=== PATIENT | female | born 1985 | race Caucasian/White ===

== ENCOUNTER 2021-12-20 17:05 | Emergency (ER) | payer OTHER, MEDICAID, SELFPAY ==
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
[2021-12-20 17:10] VITALS: BP 125/66; PULSE 79; RESP 18; TEMP 36.6; O2SAT 99; BMI 32.5
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
== END 2021-12-20 20:40 | disposition home or self-care (01) ==
LOC: HO.ED 18:54
PROVIDERS: Emergency Provider Emergency Medicine
DX: S16.1XXA Strain of muscle, fascia and tendon at neck level, initial encounter (principal); M54.2 Cervicalgia; V43.62XA Car passenger injured in collision with other type car in traffic accident, initial encounter; Y93.9 Activity, unspecified; Y92.410 Unspecified street and highway as the place of occurrence of the external cause; Y99.9 Unspecified external cause status; Z79.899 Other long term (current) drug therapy
CPT/HCPCS: 72040; 99283

== ENCOUNTER 2022-12-29 13:49 | Outpatient (REF) | payer OTHER, SELFPAY ==
[2022-12-29 14:52] LABS: Influenza A PCR NEGATIVE (Negative); Influenza B PCR NEGATIVE (Negative); Resp Syncy Virus RNA Qual PCR NEGATIVE (Negative); SARS COV2 PCR INHOUSE NEGATIVE (Negative)
== END 2022-12-29 13:50 | disposition home or self-care (01) ==
LOC: HO.LNP 13:49
PROVIDERS: Visit Provider Internal Medicine
DX: Z20.822 Contact with and (suspected) exposure to COVID-19 (principal); R43.9 Unspecified disturbances of smell and taste
CPT/HCPCS: 0241U

== ENCOUNTER 2024-04-01 11:25 | Outpatient (AMB) | payer OTHER, SELFPAY ==
[2024-04-01 11:30] VITALS: BP 118/84; PULSE 68; O2SAT 98; BMI 35.4
--- NOTE | 2024-04-01 11:30 | MHC.PC.OV ---
Vital Signs 04/01/24 11:30 Height 5 ft 5 in Weight 213 lb BMI 35.4 BP 118/84 Blood Pressure Location Lt brachial Position Sitting Pulse 68 Pulse Source Pulse Oximeter Pulse Oximetry (%) 98 Oxygen Delivery Method Room Air Intake Visit Reasons: Pressure in Chest tingling rt arm on/off 4 days Allergies No Known Allergies Allergy (Verified 04/01/24 11:31) adhesive Allergy (Unknown, Uncoded 12/29/22 10:23) rash Medication List - Last Reconciled 04/01/24 by Zander Richard MD albuterol sulfate 90 mcg/actuation (ProAir HFA) 1 inh inhalation QID PRN 30 days fluticasone propion-salmeterol 250-50 mcg/dose (Wixela Inhub) 1 inh inhalation BID 30 days Tobacco use date assessed: 04/01/24 Dental Screening Dental Screen Date: 04/01/24 Did you have a dental visit in the last 12 months?: Yes Did you have a dental problem in the last 6 months where you did not have access to dental care?: No Was dental information given to patient?: Patient has dentist HPI Pressure in Chest tingling rt arm on/off 4 days HPI Details Patient is 38-year-old female who was last seen 2021 Patient was evaluated for lower back pain at that visit Today she came in with chief complaint of chest discomfort which started 4 days ago Patient says that she was sitting in a car when she started having discomfort, and since then she has been having it off and on It comes on just for a 2nd and then gets better Pain is located in the middle of the chest starting from epigastric area all the way up to her throat No relationship with eating or laying down Also complaining of tingling sensation right arm starting all the way from her cervical spine down to her wrist Patient tells me that yesterday she was laying down and she had little bit of tingling around her lips as well In 2019 patient had labs and her hemoglobin was 9.0 after that she did not had any labs done Patient never returned for any physical exam see the I am ordering CBC, ferritin, B12, metabolic profile, TSH EKG done today showed normal sinus rhythm 68 beats per minute no T or ST abnormality Patient is to return in 2 days for follow-up appointment Meanwhile I am also starting her on PPI 60 minutes spent in care of this patient, including [id number] discussion with patient and her significant other EKG review, charting, coordination of care FOR[facility]LY [facility] Medical History HAWA positive Migraine Asthma Family History Father Hypertension Mother Asthma Maternal Grandfather Diabetes Paternal Grandmother CVD (cardiovascular disease) Paternal Grandfather Diabetes Social History Housing: House Patient Tobacco Use Status: Never used Tobacco e-Cigarette/Vaping Use: Never Used Current occupational status: employed Cognitive needs: No Hearing needs: No Vision needs: No Questionnaire Thrive Questionnaire Date Thrive assessed: 02/28/22 AUDIT C Alcohol Use Questionnaire (AUDIT-C) 1. How often do you have a drink containing alcohol?: Never 3. How often do you have six or more drinks on one occasion?: Never Total Score: 0 Score Reviewed/Action Taken: Yes MARLON-7 AMB Questionnaire MARLON-7 Date MARLON - 7 assessed: 02/28/22 Source: Developed by Drs. Keven Akins, Stacy Bull, Antonio Allen and colleagues, with an educational petros from [employer]. Review of Systems Const Denies chills and Denies fever(s) ENT Denies epistaxis and Denies nasal discharge Resp Denies chest congestion, Denies cough and Denies hemoptysis GI Denies diarrhea and Denies nausea Skin/Breast Denies rash Neuro Reports no additional complaints Psych Reports no additional complaints Endo Reports no additional complaints Physical exam (Primary Care) Vital Signs: Last Vital Signs Pulse 68 04/01/24 11:30 BP 118/84 04/01/24 11:30 Pulse Ox 98 04/01/24 11:30 Oxygen Delivery Method Room Air 04/01/24 11:30 BMI result Body Mass Index 35.4 Tobacco/Smoking Status: Tobacco use Status Tobacco use date assessed 04/01/24 04/01/24 11:36 Patient Tobacco Use Status Never used Tobacco 04/01/24 11:30 e-Cigarette/Vaping Use Never Used 04/01/24 11:30 Thrive Assessment: Date of Thrive Assessment Date Thrive assessed 02/28/22 04/01/24 11:30 Const General: cooperative, comfortable and no acute distress Orientation/consciousness: patient oriented x3 HENMT Head: Yes normocephalic Eyes General: appearance normal, both eyes and all related structures Neck Neck: Yes supple Chest Other: No pain with chest palpation Resp Effort & Inspection: normal respiratory effort, no cough and no stridor Cardio Rhythm: regular rhythm Heart sounds: S1 normal heart sound present and S2 normal heart sound present GI Other: no epigastric pain with pressure, abdomen exam is benign Back/Spine/Pelvis Back/spine/pelvis image: 1. 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 General: patient oriented x3, tone normal and moves all extremities Extrem Right lower extremity: no edema Left lower extremity: no edema Assessment and Plan Assessment & Plan (1) Chest pain: Code(s): R07.9 - Chest pain, unspecified Qualifiers: Chest pain type: other chest pain Qualified Code(s): R07.89 - Other chest pain (2) Iron deficiency anemia: Code(s): D50.9 - Iron deficiency anemia, unspecified Qualifiers: Iron deficiency anemia type: chronic blood loss Qualified Code(s): D50.0 - Iron deficiency anemia secondary to blood loss (chronic) (3) Paresthesia of right arm: Code(s): R20.2 - Paresthesia of skin (4) Strain of right trapezius muscle: Code(s): S46.811A - Strain of other muscles, fascia and tendons at shoulder and upper arm level, right arm, initial encounter Qualifiers: Encounter type: initial encounter Qualified Code(s): S46.811A - Strain of other muscles, fascia and tendons at shoulder and upper arm level, right arm, initial encounter (5) Paresthesia of lower lip: Code(s): R20.2 - Paresthesia of skin Plan Patient is 38-year-old female who was last seen 2021 Patient was evaluated for lower back pain at that visit Today she came in with chief complaint of chest discomfort which started 4 days ago Patient says that she was sitting in a car when she started having discomfort, and since then she has been having it off and on It comes on just for a 2nd and then gets better Pain is located in the middle of the chest starting from epigastric area all the way up to her throat No relationship with eating or laying down Also complaining of tingling sensation right arm starting all the way from her cervical spine down to her wrist Patient tells me that yesterday she was laying down and she had little bit of tingling around her lips as well In 2019 patient had labs and her hemoglobin was 9.0 after that she did not had any labs done Patient never returned for any physical exam see the I am ordering CBC, ferritin, B12, metabolic profile, TSH EKG done today showed normal sinus rhythm 68 beats per minute no T or ST abnormality Patient is to return in 2 days for follow-up appointment Meanwhile I am also starting her on PPI 60 minutes spent in care of this patient, including [id number] discussion with patient and her significant other EKG review, charting, coordination of care Orders: Orders LDL Cholesterol Direct Today D50.9 - Iron deficiency anemia, unspecified, R07.9 - Chest pain, unspecified, R20.2 - Paresthesia of skin, S46.811A - Strain of other muscles, fascia and tendons at shoulder and upper arm level, right arm, initial encounter Vitamin B12 Today D50.9 - Iron deficiency anemia, unspecified, R07.9 - Chest pain, unspecified, R20.2 - Paresthesia of skin, S46.811A - Strain of other muscles, fascia and tendons at shoulder and upper arm level, right arm, initial encounter Ferritin Today D50.9 - Iron deficiency anemia, unspecified, R07.9 - Chest pain, unspecified, R20.2 - Paresthesia of skin, S46.811A - Strain of other muscles, fascia and tendons at shoulder and upper arm level, right arm, initial encounter Complete Blood Count Auto Diff Today D50.9 - Iron deficiency anemia, unspecified, R07.9 - Chest pain, unspecified, R20.2 - Paresthesia of skin, S46.811A - Strain of other muscles, fascia and tendons at shoulder and upper arm level, right arm, initial encounter Comprehensive Met. Panel Today D50.9 - Iron deficiency anemia, unspecified, R07.9 - Chest pain, unspecified, R20.2 - Paresthesia of skin, S46.811A - Strain of other muscles, fascia and tendons at shoulder and upper arm level, right arm, initial encounter TSH reflex Free T4 Today D50.9 - Iron deficiency anemia, unspecified, R07.9 - Chest pain, unspecified, R20.2 - Paresthesia of skin, S46.811A - Strain of other muscles, fascia and tendons at shoulder and upper arm level, right arm, initial encounter Vitamin D 25-OH (D2 and D3) Today D50.9 - Iron deficiency anemia, unspecified, R07.9 - Chest pain, unspecified, R20.2 - Paresthesia of skin, S46.811A - Strain of other muscles, fascia and tendons at shoulder and upper arm level, right arm, initial encounter IRON PROFILE Today D50.9 - Iron deficiency anemia, unspecified, R07.9 - Chest pain, unspecified, R20.2 - Paresthesia of skin, S46.811A - Strain of other muscles, fascia and tendons at shoulder and upper arm level, right arm, initial encounter XR cervical spine 2V Today R20.2 - Paresthesia of skin Medications: New omeprazole 20 mg PO DAILY 30 caps 0RF Discontinued fluticasone propion-salmeterol 250-50 mcg/dose (Wixela Inhub) Discontinued Reason: No Longer Medically Relevant 1 inh inhalation BID 30 days 60 ea 2RF albuterol sulfate 90 mcg/actuation (ProAir HFA) Discontinued Reason: Patient Completed Course 1 inh inhalation QID 30 days PRN 18 grams 0RF shortness of breath or wheezing Coding Level of Care Code Est Pt Level 5 (43488) Diagnoses Other chest pain R07.89 Chest pain type: other chest pain Iron deficiency anemia due to chronic blood loss D50.0 Iron deficiency anemia type: chronic blood loss Paresthesia of right arm R20.2 Strain of right trapezius muscle, initial encounter S46.811A Encounter type: initial encounter Paresthesia of lower lip R20.2
== END 2024-04-01 12:20 | disposition home or self-care (01) ==
PROVIDERS: PCP Internal Medicine; Visit Provider Internal Medicine
DX: R07.89 Other chest pain (principal); D50.0 Iron deficiency anemia secondary to blood loss (chronic); R20.2 Paresthesia of skin; S46.811A Strain of other muscles, fascia and tendons at shoulder and upper arm level, right arm, initial encounter
CPT/HCPCS: 99215; 99417

== ENCOUNTER 2024-04-01 12:01 | Outpatient (REF) | payer OTHER, SELFPAY ==
--- NOTE | ~2024-04-01 | XR_ITS ---
EXAMINATION: XR CERVICAL SPINE CLINICAL INFORMATION: Paresthesia of skin COMPARISON: Cervical spine 12/20/2021 TECHNIQUE: 6 views of the cervical spine were obtained. FINDINGS: No fracture. Prevertebral soft tissues are within normal limits. There is straightening of the usual cervical lordosis which can be seen with muscle spasm or be due to patient positioning. There is no significant disc space narrowing. There is no subluxation. The dens is intact. The lung apices are clear. XR/XR cervical spine 2V IMPRESSION: Straightening of the usual cervical lordosis which can be seen with muscle spasm or be due to patient positioning.
[2024-04-01 13:17] LABS: MANUAL DIFF FLAG NO
[2024-04-01 13:36] LABS: Basophils Percent Auto 0.4 % (0-2); Eosinophils Absolute Auto 0.3 X10*3/uL (0.0-0.4); Eosinophils Percent Auto 4.6 % (0-4); Hemoglobin 11.4 g/dl (12.0-16.0); Imm Gran Abs Auto 0.04 X10*3/uL (0.00-0.03); Imm Gran Pct Auto 0.6 % (0.0-0.4); Lymphocytes Absolute Auto 2.2 X10*3/uL (1.2-4.9); Lymphocytes Percent Auto 31.9 % (20-40); Mean Corpuscular HGB Conc 33.5 g/dl (31.0-35.0); Mean Corpuscular Hemoglobin 30.4 pg (27.0-33.0); Mean Corpuscular Volume 90.7 fL (80.0-98.0); Monocytes Absolute Auto 0.3 X10*3/uL (0.1-1.2); Monocytes Percent Auto 4.9 % (2-11); Neutrophils Percent Auto 57.6 % (45-73); Platelet Count 295 X10*3/uL (160-400); Red Blood Count 3.75 X10*6/uL (4.20-5.50); Red Cell Distribution Width 12.2 % (11.0-16.0)
[2024-04-01 13:51] LABS: Alanine Aminotransferase 14 U/L (0-31); Albumin Level 4.1 g/dL (3.5-5.0); Alkaline Phosphatase 55 U/L (39-117); Anion Gap 13 (12-20); Aspartate Amino Transferase 14 U/L (5-31); Bilirubin Total 0.2 mg/dL (0.0-1.0); Blood Urea Nitrogen 11 mg/dL (9-16); Calcium 9.2 mg/dL (8.4-10.2); Carbon Dioxide 24 mmol/L (22-29); Chloride 106 mmol/L (96-108); Estimated Glomerular Filt Rate > 60; Glucose Random 95 mg/dL (60-115); Iron 71 mcg/dL (30-160); Percent Iron Saturation 27 % (15-50); Potassium 3.7 mmol/L (3.3-5.1); Sodium 139 mmol/L (135-145); Total Iron Binding Capacity 267 mcg/dL (228-428); Unsaturated Iron Binding 196 ug/dL
[2024-04-01 14:11] LABS: Ferritin 27 ng/mL (10-122); TSH reflex Free T4 0.97 uIU/mL (0.32-4.0)
[2024-04-01 15:18] LABS: Vitamin B12 368 pg/mL (200-900)
[2024-04-02 09:09] LABS: LDL Cholesterol Direct 156 mg/dL (<100)
[2024-04-05 16:44] LABS: Vitamin D 25-OH, D2 <4 ng/mL; Vitamin D 25-OH, D3 11 ng/mL; Vitamin D 25-OH, Total 11 ng/mL (30-100)
== END 2024-04-01 12:02 | disposition home or self-care (01) ==
LOC: HO.HMGCX 12:01
PROVIDERS: PCP Internal Medicine; Visit Provider Internal Medicine
DX: R07.9 Chest pain, unspecified (principal); D50.9 Iron deficiency anemia, unspecified; R20.2 Paresthesia of skin; S46.811A Strain of other muscles, fascia and tendons at shoulder and upper arm level, right arm, initial encounter
CPT/HCPCS: 36415; 72040; 80053; 82306; 82607; 82728; 83540; 83721; 84443; 85025

== ENCOUNTER 2024-04-04 12:58 | Outpatient (AMB) | payer OTHER, SELFPAY ==
--- NOTE | 2024-04-04 13:00 | MHC.PC.OV ---
Intake Visit Reasons: F/U ok per [id number],[phone] Allergies No Known Allergies Allergy (Verified 04/01/24 11:31) adhesive Allergy (Unknown, Uncoded 12/29/22 10:23) rash Tobacco use date assessed: 04/01/24 Dental Screening Dental Screen Date: 04/01/24 [facility] Medical History HAWA positive Migraine Asthma Family History Father Hypertension Mother Asthma Maternal Grandfather Diabetes Paternal Grandmother CVD (cardiovascular disease) Paternal Grandfather Diabetes Social History Housing: House Patient Tobacco Use Status: Never used Tobacco e-Cigarette/Vaping Use: Never Used Current occupational status: employed Cognitive needs: No Hearing needs: No Vision needs: No Questionnaire Thrive Questionnaire Date Thrive assessed: 02/28/22 MARLON-7 AMB Questionnaire MARLON-7 Date MARLON - 7 assessed: 02/28/22 Source: Developed by Drs. Keven Akins, Stacy Bull, Antonio Allen and colleagues, with an educational petros from [employer]. Physical exam (Primary Care) Tobacco/Smoking Status: Tobacco use Status Tobacco use date assessed 04/01/24 04/01/24 11:36 Patient Tobacco Use Status Never used Tobacco 04/01/24 11:30 e-Cigarette/Vaping Use Never Used 04/01/24 11:30 Thrive Assessment: Date of Thrive Assessment Date Thrive assessed 02/28/22 04/01/24 11:30 Coding
--- NOTE | 2024-04-04 13:47 | A.OFFPC_ITS ---
Intake Visit Reasons: F/U ok per CO,[phone] Allergies No Known Allergies Allergy (Verified 04/04/24 13:48) adhesive Allergy (Unknown, Uncoded 12/29/22 10:23) rash Medication List - Last Reconciled 04/04/24 by Zander Richard MD omeprazole 40 mg PO DAILY 90 days Tobacco use date assessed: 04/04/24 Dental Screening Dental Screen Date: 04/04/24 Did you have a dental visit in the last 12 months?: Yes Did you have a dental problem in the last 6 months where you did not have access to dental care?: No Was dental information given to patient?: Patient has dentist HPI F/U ok per CO,[phone] HPI Details Patient is a 38-year-old female this is a telemedicine visit to go over her labs and to see if she is improving I did sent omeprazole last time she was seen, however pharmacy never received a script She says that she has seen how diet might be contributing to her chest pains I have sent omeprazole 40 mg again patient was advised to give me a call if she does not receive the script Also was told to stop eating 4 hours before bedtime And start keeping a food diary. Labs were done recently reviewed with the patient Her anemia has improved her hemoglobin is now 11.4 I see that B12 level is slightly low I am providing supplement to bring that up As patient continued to have tingling and numbness randomly in her right arm Cervical spine x-ray was within normal limit and did not indicate any signs of disc disease We will book another appointment in 2 and half month to see how she is doing. FORMERLY [facility] Medical History HAWA positive Migraine Asthma Family History Father Hypertension Mother Asthma Maternal Grandfather Diabetes Paternal Grandmother CVD (cardiovascular disease) Paternal Grandfather Diabetes Social History Housing: House Patient Tobacco Use Status: Never used Tobacco e-Cigarette/Vaping Use: Never Used Current occupational status: employed Cognitive needs: No Hearing needs: No Vision needs: No Questionnaire Thrive Questionnaire Date Thrive assessed: 02/28/22 AUDIT C Alcohol Use Questionnaire (AUDIT-C) 1. How often do you have a drink containing alcohol?: Never 3. How often do you have six or more drinks on one occasion?: Never Total Score: 0 Score Reviewed/Action Taken: Yes MARLON-7 AMB Questionnaire MARLON-7 Date MARLON - 7 assessed: 02/28/22 Source: Developed by Drs. Keven Akins, Stacy Bull, Antonio Allen and colleagues, with an educational petros from [email or web address]. Review of Systems Const Denies chills and Denies fever(s) ENT Denies epistaxis and Denies nasal discharge Resp Denies chest congestion, Denies cough and Denies hemoptysis GI Denies diarrhea and Denies nausea Skin/Breast Denies rash Neuro Reports no additional complaints Psych Reports no additional complaints Endo Reports no additional complaints Physical exam (Primary Care) Tobacco/Smoking Status: Tobacco use Status Tobacco use date assessed 04/04/24 04/04/24 13:49 Patient Tobacco Use Status Never used Tobacco 04/04/24 13:49 e-Cigarette/Vaping Use Never Used 04/04/24 13:49 Thrive Assessment: Date of Thrive Assessment Date Thrive assessed 02/28/22 04/04/24 13:49 Telehealth Telehealth Telehealth Platform: [employer] Location of provider rendering services: practice address Location of patient: address on file Patient Identification confirmed using: Name, : Yes Telehealth method: video (Attempted) Patient verbally consented to treatment: Yes Patient verbally consented to billing insurance company: Yes Patient informed of any privacy concerns related to visit: Yes Minutes spent on Phone/Video with Pt.: 13 Results Reviewed Results Reviewed: Laboratory Tests 04/01/24 12:05 LDL Cholesterol Direct 156 H Vitamin B12 368 Assessment and Plan Assessment & Plan (1) Iron deficiency anemia: Code(s): D50.9 - Iron deficiency anemia, unspecified Qualifiers: Iron deficiency anemia type: chronic blood loss Qualified Code(s): D50.0 - Iron deficiency anemia secondary to blood loss (chronic) (2) Acid reflux: Code(s): K21.9 - Gastro-esophageal reflux disease without esophagitis Qualifiers: Esophagitis presence: without esophagitis Qualified Code(s): K21.9 - Gastro-esophageal reflux disease without esophagitis (3) Paresthesia of right arm: Code(s): R20.2 - Paresthesia of skin (4) B12 deficiency: Code(s): E53.8 - Deficiency of other specified B group vitamins Plan Patient is a 38-year-old female this is a telemedicine visit to go over her labs and to see if she is improving I did sent omeprazole last time she was seen, however pharmacy never received a script She says that she has seen how diet might be contributing to her chest pains I have sent omeprazole 40 mg again patient was advised to give me a call if she does not receive the script Also was told to stop eating 4 hours before bedtime And start keeping a food diary. Labs were done recently reviewed with the patient Her anemia has improved her hemoglobin is now 11.4 I see that B12 level is slightly low I am providing supplement to bring that up As patient continued to have tingling and numbness randomly in her right arm Cervical spine x-ray was within normal limit and did not indicate any signs of disc disease We will book another appointment in 2 and half month to see how she is doing. Medications: New cyanocobalamin (vitamin B-12) 1,000 mcg PO DAILY 90 days 90 tabs 0RF Changed From omeprazole 20 mg PO DAILY 30 caps 0RF To omeprazole 40 mg PO DAILY 90 days 90 caps 0RF Coding Level of Care Code Tele Est Pt Level 3 (15859) Diagnoses Iron deficiency anemia due to chronic blood loss D50.0 Iron deficiency anemia type: chronic blood loss Gastroesophageal reflux disease without esophagitis K21.9 Esophagitis presence: without esophagitis Paresthesia of right arm R20.2 B12 deficiency E53.8
== END 2024-04-04 14:30 | disposition home or self-care (01) ==
LOC: HO.HMGC 12:59
PROVIDERS: PCP Internal Medicine; Visit Provider Internal Medicine
DX: D50.0 Iron deficiency anemia secondary to blood loss (chronic) (principal); K21.9 Gastro-esophageal reflux disease without esophagitis; R20.2 Paresthesia of skin; E53.8 Deficiency of other specified B group vitamins
CPT/HCPCS: 99213

== ENCOUNTER 2024-12-01 13:09 | Outpatient (AMB) | payer OTHER, SELFPAY ==
--- NOTE | 2024-12-01 14:38 | MHC.OFFWIV ---
Intake Vital Signs 12/01/24 14:39 Weight 215 lb BP 120/80 Blood Pressure Location Lt brachial Position Sitting Pulse 75 Pulse Source Pulse Oximeter Temp 98.0 F Temp Source Oral Pulse Oximetry (%) 97 Oxygen Delivery Method Room Air Intake Visit Reasons: EP diarreah, vomiting, body chills, pain Intake Note: Patient here for diarrhea,vomiting, body chills, body ache and nausea that has been present for a few days. Patient Tobacco Use Status: Never used Tobacco Allergies No Known Allergies Allergy (Verified 12/01/24 15:17) adhesive Allergy (Unknown, Uncoded 12/01/24 15:17) rash Medication List - Last Reconciled 12/01/24 by Rika Ryan PA-C cyanocobalamin (vitamin B-12) 1,000 mcg PO DAILY 90 days cyclobenzaprine 10 mg PO TID PRN omeprazole 40 mg PO DAILY 90 days ondansetron 4 mg PO Q8H PRN Do you need a note to return to daycare/school/sports/work: No HPI HPI Comments History of Present Illness Details The patient is a 39-year-old female presenting with gastrointestinal symptoms. She reports experiencing diarrhea and vomiting throughout the previous day. That evening, she developed severe chills and body aches. On the day of the visit, she continues to have significant body aches, particularly in her arms, and experiences nausea but has not vomited again. She noted chest discomfort after vomiting, consistent with muscle strain from emesis. She mentioned having significant diarrhea multiple times the previous day, sweating profusely, but she did not measure her body temperature. Denies sick contacts. 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 She denies any recent travel history, respiratory symptoms, or sore throat. She experienced what she describes as possible period cramps a day or two before the onset of symptoms, although not expected to menstruate soon. She is concerned about the possibility of a viral infection, such as norovirus. 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 - Current Nutrition: Due to gastrointestinal symptoms, restricted intake of liquids and soda; has avoided eating fearful of exacerbating symptoms. - Family: Resides with her son and expresses concern about contagion, noting her son also experienced diarrhea. [facility] Medical History HAWA positive Migraine Asthma Family History Father Hypertension Mother Asthma Maternal Grandfather Diabetes Paternal Grandmother CVD (cardiovascular disease) Paternal Grandfather Diabetes Social History Housing: House Patient Tobacco Use Status: Never used Tobacco e-Cigarette/Vaping Use: Never Used Current occupational status: employed Cognitive needs: No Hearing needs: No Vision needs: No Review of Systems Const Details: - Respiratory: Denies cough. - Gastrointestinal: Reports nausea, significant diarrhea previously, and no bowel movements since the last episode of diarrhea. - Musculoskeletal: Reports severe body aches, particularly in arms and upper body. Denies lower body pain. - General: Reports chills and muscle pains. - Neurological: Denies headache or dizziness. All systems reviewed & are unremarkable except as noted in HPI and below Physical Exam Vital Signs: Last Vital Signs Temp 98.0 F 12/01/24 14:39 Pulse 75 12/01/24 14:39 BP 120/80 12/01/24 14:39 Pulse Ox 97 12/01/24 14:39 Oxygen Delivery Method Room Air 12/01/24 14:39 Const Other: Appearance: Alert. Oriented X3. No acute distress. Head: Normal external exam. Normocephalic. Atraumatic. Eyes: Pupils are equal, round, and reactive to light. Extraocular movements intact. Conjunctiva and sclera normal. Eyelids normal. Ears: External auditory canal normal. Tympanic membranes normal. Throat: Pharynx normal. Uvula midline. Moist mucous membranes. Neck: Normal inspection. Neck supple. Full range of motion. No adenopathy. Thyroid Normal. No meningeal signs. No neck mass noted. Cardiovascular: Normal heart rate and rhythm. Respiratory: No respiratory distress. Painless inspiration. Chest nontender. No accessory muscle usage noted or decreased air movement noted. Abdomen: Soft and nontender. Bowel sounds normal in all 4 quadrants. No distention noted. No organomegaly noted. No visible injury noted. Back: No costovertebral angle tenderness. Full range of motion noted. Skin: Skin warm and dry. Normal skin color. Normal skin turgor. No rashes/lesions/lacerations noted. Extremities:Extremities exhibit normal range of motion. Extremities nontender. Neuro: Oriented X 3. No motor deficit. No sensory deficit. Reflexes normal. Assessment & Plan Assessment & Plan (1) Nausea vomiting and diarrhea: Code(s): R11.2 - Nausea with vomiting, unspecified; R19.7 - Diarrhea, unspecified Plan: - Administer antiemetic medication for symptomatic relief of nausea. - Prescribe muscle relaxant, Flexeril Cyclobenzaprine), to manage muscle pain. - Advise rehydration with appropriate fluids such as Pedialyte. - Recommend dietary adjustments, following a BRAT diet Bananas, Rice, Applesauce, [place]) for gastrointestinal recovery. Patient was informed and verbally consented to the use of an ambient scribe for clinic note documentation during this visit. Plan During the consultation, I discussed the likelihood of a viral gastroenteritis, possibly norovirus, given the patient's symptom profile and her son's related symptoms. I explained the high contagion level of norovirus and emphasized the importance of strict hygiene measures to prevent spread within her household. Management options discussed included symptomatic relief with antiemetics and muscle relaxants, both with specific instructions for use. I advised against the use of hand sanitizers, explaining their ineffectiveness against this virus, and instead recommended using soap and water for hand hygiene. We discussed home care strategies, including dietary changes to ease gastrointestinal recovery and the importance of hydration. Explanation of the potential time course of symptoms was provided, as well as reassurance regarding the self-limiting nature of the virus. I provided a work note as a precautionary measure if her symptoms persisted. Medications: New ondansetron 4 mg PO Q8H PRN 20 tabs 0RF nausea and vomiting cyclobenzaprine 10 mg PO TID PRN 20 tabs 0RF muscle spasm Patient Instructions: - Take prescribed antiemetic medication as directed for nausea. - Use muscle relaxant at night to alleviate muscle pain. - Maintain hydration with clear fluids like Pedialyte or water. - Follow a BRAT diet: Bananas, Rice, Applesauce, and [place]. - Follow strict hygiene practices, including frequent handwashing with soap and water. - Clean frequently touched surfaces thoroughly, especially in shared bathrooms. - Avoid using alcohol-based hand sanitizers, as they are ineffective for norovirus. - Monitor for any worsening of symptoms or new symptoms and seek medical attention if needed. - Follow up if symptoms do not improve within 48-72 hours or for any new concerns. Coding Level of Care Code Est Pt Level 3 (47176) Diagnoses Nausea vomiting and diarrhea R11.2; R19.7
[2024-12-01 14:39] VITALS: BP 120/80; PULSE 75; TEMP 36.7; O2SAT 97
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
--- OUTSIDE RECORDS SUMMARY | 2024-12-01 15:15 | XMS_ITS | Encounter Summary ---
Author Name [facility] [place] [facility] [place] Address [address] [place] [address] Care Team Providers Care Operations Dispatcher Name Role Phone CHIDI DESIR Primary Care [...] UMA PRESCRIPT ION GEHA~ Nov 26, 2014 [id number] DENIZ TOBAR PATIENT CAREMARK PRESCRIPT ION GEHA Sep 13, 2014 [id number] [phone] RAMÓN OROPEZADENIZ PATIENT CAREMARK ([id number]) PRESCRIPT ION GEHA RX Nov 26, 2014 [id number] [phone] DUNGLACY OROPEZADENIZ PATIENT GEHA [facility] MENTAL HEALTH GEHA/ ASA 2021Nov 26, 2021 [id number] [phone] RAMÓN OROPEZADENIZ 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 FEDERAL DENTAL INSURANCE GEHA Nov 26, 2017 [id number] DENIZ TOBAR PATIENT GEHA-[facility] PREFERRED PROVIDER ORGANIZAT ION (PPO) GEHA- [facility] STAND ANDREW Nov 26, 2023 [id number] DENIZ TOBAR PATIENT [facility] PREFERRED PROVIDER ORGANIZAT ION (PPO) GEHA Nov 26, 2014 [id number] DENIZ TOBAR PATIENT [facility] PREFERRED PROVIDER ORGANIZAT ION (PPO) GEHA Sep 13, 2014 [id number] ALTH [id number] [phone] DENIZ TOBAR PATIENT GEHA/[facility] PREFERRED PROVIDER ORGANIZAT ION (PPO) STAND ANDREW OPTIO N Nov 26, 2020 [id number] DENIZ TOBAR PATIENT Selected Encounter This section includes the information on record at [place] for the Encounter. Date/Time Encounter Type Encounter Description Reason Provider Source Mar 24, 2024 11:08 AM HC PRO PHONE CALL 5-10 MIN TELEPHONE PRIMARY CARE ICD-10-CM R19.7 Diarrhea, unspecified VANIA MAIN IHMargarita Encounter Template Text not used by CT Assessments - Encounter Diagnoses This section includes the primary and secondary diagnoses documented for the Encounter. Date/Time Primary/Secondary Diagnosis Diagnosis Name Provider Source Mar 24, 2024 11:08 AM PRIMARY Diarrhea, unspecified VANIA MAIN CBDAE Plan of Treatment: Future Appointments (+ 6 months) and Future Tests (+/- 45 days) The Plan of Treatment section includes future care activities for the patient from all [place] treatmentfacilities. This section includes future appointments and future orders which are active, pending or scheduled. Future Appointments This section includes appointments that were scheduled to occur 6 months from the date of the Encounter, up to a maximum of 20 appointments. The data comes from all [place] treatment facilities. Appointment Date/Time Appointment Type Appointme nt Facility Name April 01, 2024 02:30 PM AMBULATORY - PSYCHIATRY CL CURT[facility] April 02, 2024 11:00 AM AMBULATORY - NONE CLEENRRIQUE Lopez [facility] April 02, 2024 11:34 AM AMBULATORY - NONE [facility] Jul 03, 2024 10:30 AM AMBULATORY - NONE [facility] Active, Pending, and Scheduled Orders This section includes a listing of several types of active, pending, and scheduled orders, including clinic medications orders, diagnostic test orders, procedure orders and consult orders; where the start date of the order is 45 days before the date of the Encounter or 45 days after the date of theEncounter. The data comes from all [place] treatment facilities. Test Date/Time Test Type Test Details Facility Name April 02, 2024 12:00 AM Laboratory - Chemi stry Order C DIFF TOXOGENIC PCR STOOL FECES SP ONCE [facility] April 02, 2024 12:00 AM Laboratory - Chemi stry Order ENTERIC PANEL STOOL FECES SP ONCE [facility] April 02, 2024 12:00 AM Laboratory - Chemi stry Order INR BLUE TOP PL PLASMA SP [facility] Lab Results: +/- 30 days of the [...] Range Comment April 02, 2024 11:58 AM [facility] TESTOSTERONE,FREE DIRECT Specimen Type: SERUM No comment entered. Ordering Provider: CHIDI DESIR Report Released Date/Time: April 02, 2024 11:23 AM Reporting Lab: [address] [address] Performing Lab: [facility] [address] [facility] [address] TESTOSTERONE,FR EE DIRECT 31.9 pg/mL H 6.8-21.5 April 02, 2024 11:58 AM [facility] HEPATITIS B CORE AB TOTAL Specimen Type: SERUM No comment entered. Ordering Provider: CHIDI DESIR Report Released Date/Time: April 02, 2024 11:25 AM Reporting Lab: [address] [address] Performing Lab: [address] [address] HEPATITIS B CORE AB TOTAL Nonreactive Nonreactive April 02, 2024 11:58 AM [facility] HEPATITIS A AB TOTAL Specimen Type: SERUM No comment entered. Ordering Provider: CHIDI DESIR Report Released Date/Time: April 02, 2024 11:25 AM Reporting Lab: [address] [address] Performing Lab: [address] [address] HEPATITIS A AB TOTAL REACTIVE Nonreactive April 02, 2024 11:58 AM [facility] HEPATITIS B SURFACE AG Specimen Type: SERUM No comment entered. Ordering Provider: CHIDI DESIR Report Released Date/Time: April 02, 2024 11:25 AM Reporting Lab: [address] [address] Performing Lab: [place] [phone] HEPATITIS B SURFACE AG Nonreactive Nonreactive April 02, 2024 11:58 AM [facility] HEPATITIS B SURF AB Specimen Type: SERUM No comment entered. Ordering Provider: CHIDI DESIR Report Released Date/Time: April 02, 2024 11:25 AM Reporting Lab: [address] [address] Performing Lab: [address] [address] HEPATITIS B SURF AB <3.1 m[IU]/mL 0-9.99 April 02, 2024 11:58 AM [facility] HEPATITIS C ANTIBODY Specimen Type: SERUM No comment entered. Ordering Provider: CHIDI DESIR Report Released Date/Time: April 02, 2024 11:25 AM Reporting Lab: [address] [address] Performing Lab: [address] [address] HEPATITIS C ANTIBODY Nonreactive Nonreactive April 02, 2024 11:58 AM [facility] HEMOGLOBIN A1C Specimen Type: BLOOD Comment: Values [...] April 02, 2024 11:23 AM Reporting Lab: [address] [address] Performing Lab: [address] [address] HEMOGLOBIN A1C 4.6 3.6-5.7 April 02, 2024 11:58 AM [facility] LIPID PROFILE Specimen Type: PLASMA Comment: CREATININE eGFR was calculated using the CKD-EPI 2020 equation. TRIGLYCERIDE REF RANGE: NORMAL <150 mg/dL BORDERLINE HIGH: 150-199 TRIGLYCERIDE mg/dL HIGH: 200-499 mg/dL VERY HIGH: >=500 mg/dL Ordering Provider: CHIDI DESIR Report Released Date/Time: April 02, 2024 11:23 AM Reporting Lab: [address] [address] Performing Lab: [address] [address] CHOLESTEROL 255 mg/dL H 135-200 LDL CHOLESTEROL 220.0 mg/dL H 0-110 HDL CHOLESTEROL <20 mg/dL L 40-60 TRIGLYCERIDE 188 mg/dL H 0-149 April 02, 2024 11:58 AM [facility] TSH Specimen Type: PLASMA Comment: CREATININE eGFR was calculated using the CKD-EPI 2020 equation. Ordering Provider: CHIDI DESIR Report Released Date/Time: April 02, 2024 11:23 AM Reporting Lab: [address] [address] Performing Lab: [address] [address] TSH 1.437 u[IU]/mL 0.55-4.78 April 02, 2024 11:58 AM [facility] FREE T4 Specimen Type: PLASMA Comment: CREATININE eGFR was calculated using the CKD-EPI 2020 equation. Ordering Provider: CHIDI DESIR Report Released Date/Time: April 02, 2024 11:23 AM Reporting Lab: [address] [address] Performing Lab: [address] [address] FREE T4 1.79 ng/dL H 0.89-1.76 April 02, 2024 11:58 AM [facility] TESTOSTERONE Specimen Type: SERUM No comment entered. Ordering Provider: CHIDI DESIR Report Released Date/Time: April 02, 2024 11:23 AM Reporting Lab: [address] [address] Performing Lab: [address] [address] TESTOSTERONE 486.80 ng/dL April 02, 2024 11:58 AM [facility] URINALYSIS Specimen Type: URINE No comment entered. Ordering Provider: CHIDI DESIR Report Released Date/Time: April 02, 2024 11:23 AM Reporting Lab: [address] [address] Performing Lab: [place] [phone] SPECIFIC GRAVITY 1.025 H 1.016-1.022 URINE GLUCOSE [...] COLOR Yellow April 02, 2024 11:58 AM [facility] COMPREHENSIVE METABOLIC PANEL Specimen Type: PLASMA Comment: CREATININE eGFR was calculated using the CKD-EPI 2020 equation. TRIGLYCERIDE REF RANGE: NORMAL <150 mg/dL BORDERLINE HIGH: 150-199 TRIGLYCERIDE mg/dL HIGH: 200-499 mg/dL VERY HIGH: >=500 mg/dL Ordering Provider: CHIDI DESIR Report Released Date/Time: April 02, 2024 11:23 AM Reporting Lab: [address] [address] Performing Lab: [address] [address] ALBUMIN 4.2 g/dL 3.2-4.8 ALKALINE PHOSPHATASE 46 [...] 108 mL/min April 02, 2024 11:58 AM [facility] CBC Specimen Type: BLOOD No comment entered. Ordering Provider: CHIDI DESIR Report Released Date/Time: April 02, 2024 11:23 AM Reporting Lab: [address] [address] Performing Lab: [address] [address] WBC COUNT 5.4 10*3/uL 3.6-11.0 RBC COUNT [...] and tobacco- related health factors from the [place] facility where the Encounter took place. Current Smoking Status This section includes the most current smoking, or tobacco-related health factor, from the [place] facility where the Encounter took place. Date/Time Current Smoking Status Comment Suleiman zapata Dec 21, 2022 10:00 AM VA-TOBACCO NEVER USED [facility] Tobacco Use History This section includes a history of the smoking, or tobacco-related health factors, that were collected on or before the date of the Encounter. The data comes from the [place] facility where the Encounter took place. Date/Time [...] Encounter. Date/Time Encounter Note(s) Provider Source Mar 24, 2024 11:08 AM CARE MANAGEMENT NO TE: LOCAL TITLE: [facility] CARE MANAGEMENT NOTE STANDARD TITLE: CARE MANAGEMENT NOTE DATE OF NOTE: MAR 24, 2024@11:08 ENTRY DATE: MAR 24, 2024@11:09:02 AUTHOR: VANIA MAIN COSIGNER: URGENCY: STATUS: COMPLETED Telephone appointment NURSING CASE MANAGEMENT NOTE: Disease: stomach issues NARRATIVE: Vet contacted clinic request f/u with PCP. Vet states he has been having stomach issues that is chronic and ongoing for years. Vet states he has diarrhea about 15 times a day . Denies blood in stool, n/v, syncope, lightheadedness, dizziness, weakness. Denies mucus in stool or very odorous stool. Denies abdominal pain/cramps. Vet states it's tense like it's all in knots. I'm not sure if it's stress related . CURRENT REGIMEN: Vet states he has tried imodium in the past but it doesn't help . COMPLIANCE: n/a PLAN OF CARE: Vet requesting f/u with PCP. RTC placed. Vet declined need for ER f/u, states this is ongoing and not urgent. Vet advised to continue to trial imodium for diarrhea. Drink plenty of fluid to prevent dehydration. Call 911 or go to the nearest ER if vet experiences sob, cp, syncope, abdominal pain, large amount of blood in stool. Understanding verbalized and in agreement with plan of care. Declined offer to transfer call. Requesting for MSA to contact him later. MSA notified. LENGTH OF VISIT: /duane/ VANIA Alanis REGISTERED NURSE Signed: 03/24/2024 11:18 VANIA AMIN [facility]
--- OUTSIDE RECORDS SUMMARY | 2024-12-01 15:15 | XMS_ITS | Encounter Summary ---
Author Name [facility] [place] [facility] [place] Address [address] [place] [address] Care Team Providers Care Sports Complex Attendant Name Role Phone CHIDI DESIR Primary Care [...] Dia's Name Patient's Relationship to Policy Dia CAREMARK PRESCRIPT ION GEHA~ Nov 26, 2014 [id number] RAMÓN JOHNNADENIZ PATIENT CAREMARK PRESCRIPT ION GEHA Sep 13, 2014 [id number] [phone] RAMÓN OROPEZADENIZ PATIENT CAREMARK ([id number]) PRESCRIPT ION GEHA RX Nov 26, 2014 [id number] [phone] RAMÓN OROPEZADENIZ PATIENT GEHA [facility] MENTAL HEALTH GEHA/ ASA 2021Nov 26, 2021 [id number] [phone] RAMÓN OROPEZADENIZ 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 FEDERAL DENTAL INSURANCE GEHA Nov 26, 2017 AA [id number] DENIZ TOBAR PATIENT GEHA-[facility] PREFERRED PROVIDER ORGANIZAT ION (PPO) GEHA- [facility] STAND ANDREW Nov 26, 2023 [id number] DENIZ TOBAR PATIENT [facility] PREFERRED PROVIDER ORGANIZAT ION (PPO) GEHA Nov 26, 2014 [id number] [phone] DENIZ TOBAR PATIENT [facility] PREFERRED PROVIDER ORGANIZAT ION (PPO) GEHA Sep 13, 2014 [id number] ALTH [id number] [phone] DENIZ TOBAR PATIENT GEHA/[facility] PREFERRED PROVIDER ORGANIZAT ION (PPO) STAND ANDREW OPTIO N Nov 26, 2020 [id number] DENIZ TOBAR PATIENT Selected Encounter This section includes the information on record at [place] for the Encounter. Date/Time Encounter Type Encounter Description Reason Pro vider Source Mar 12, 2024 01:35 PM Outpatient Encounter TELEPHONE PRIMARY CARE IHE Encounter Template Text not used by [place] Plan of Treatment: Future Appointments (+ 6 months) and Future Tests (+/- 45 days) The Plan of Treatment section includes future care activities for the patient [facility] [place] [facility] This section includes future appointments and future orders which are active, pending or scheduled. Future Appointments This section includes appointments that were scheduled to occur 6 months from the date of the Encounter, up to a maximum of 20 appointments. The data comes from all [facility]. Appointment Date/Time Appointment Type Appointme nt Facility Name April 01, 2024 02:30 PM AMBULATORY - PSYCHIATRY CL CURTIS [facility] April 02, 2024 11:00 AM AMBULATORY - NONE CLEENRRIQUE Lopez [facility] April 02, 2024 11:34 AM AMBULATORY - NONE [facility] Jul 03, 2024 10:30 AM AMBULATORY - NONE [facility] Active, Pending, and Scheduled Orders This section includes a listing of several types of active, pending, and scheduled orders, including clinic medications orders, diagnostic test orders, procedure orders and consult orders; where the start date of the order is 45 days before the date of the Encounter or 45 days after the date of theEncounter. The [facility] comes from all [facility]. Test Date/Time Test Type Test Details Facility Name April 02, 2024 12:00 AM Laboratory - Chemi stry Order ENTERIC PANEL STOOL FECES SP ONCE [facility] April 02, 2024 12:00 AM Laboratory - Chemi stry Order C DIFF TOXOGENIC PCR STOOL FECES SP ONCE [facility] April 02, 2024 12:00 AM Laboratory - Chemi stry Order INR BLUE TOP PL PLASMA SP [facility] Lab Results: +/- 30 days of the encounter This section includes the Chemistry and Hematology Lab Results on record with [place] for the patient. Radiology Reports and Pathology Reports are provided separately, in subsequent sections. Lab Results This section contains the Chemistry/Hematology Results that were resulted 30 days before or 30 daysafter the date of the Encounter. Date/Time Source Result Type Result - Unit Interpretation Reference Range Comment April 02, 2024 11:58 AM [facility] TESTOSTERONE,FREE DIRECT Specimen Type: SERUM No comment entered. Ordering Provider: CHIDI DESIR Report Released Date/Time: April 02, 2024 11:23 AM Reporting Lab: [address] [address] Performing Lab: [address] [address] TESTOSTERONE,FR EE DIRECT 31.9 pg/mL H 6.8-21.5 April 02, 2024 11:58 AM [facility] HEPATITIS A AB TOTAL Specimen Type: SERUM No comment entered. Ordering Provider: CHIDI DESIR Report Released Date/Time: April 02, 2024 11:25 AM Reporting Lab: [address] [address] Performing Lab: [address] [address] HEPATITIS A AB TOTAL REACTIVE Nonreactive April 02, 2024 11:58 AM [facility] HEPATITIS B CORE AB TOTAL Specimen Type: SERUM No comment entered. Ordering Provider: CHIDI DESIR Report Released Date/Time: April 02, 2024 11:25 AM Reporting Lab: [address] [address] Performing Lab: [address] [address] HEPATITIS B CORE AB TOTAL Nonreactive Nonreactive April 02, 2024 11:58 AM [facility] HEPATITIS B SURFACE AG Specimen Type: SERUM No comment entered. Ordering Provider: CHIDI DESIR Report Released Date/Time: April 02, 2024 11:25 AM Reporting Lab: [address] [address] Performing Lab: [address] [address] HEPATITIS B SURFACE AG Nonreactive Nonreactive April 02, 2024 11:58 AM [facility] HEPATITIS B SURF AB Specimen Type: SERUM No comment entered. Ordering Provider: CHIDI DESIR Report Released Date/Time: April 02, 2024 11:25 AM Reporting Lab: [address] [address] Performing Lab: [address] [address] HEPATITIS B SURF AB <3.1 m[IU]/mL 0-9.99 April 02, 2024 11:58 AM [facility] HEPATITIS C ANTIBODY Specimen Type: SERUM No comment entered. Ordering Provider: CHIDI DESIR Report Released Date/Time: April 02, 2024 11:25 AM Reporting Lab: [address] [address] Performing Lab: [address] [address] HEPATITIS C ANTIBODY Nonreactive Nonreactive April 02, 2024 11:58 AM [facility] LIPID PROFILE Specimen Type: PLASMA Comment: CREATININE eGFR was calculated using the CKD-EPI 2020 equation. TRIGLYCERIDE REF RANGE: NORMAL <150 mg/dL BORDERLINE HIGH: 150-199 TRIGLYCERIDE mg/dL HIGH: 200-499 mg/dL VERY HIGH: >=500 mg/dL Ordering Provider: CHIDI DESIR Report Released Date/Time: April 02, 2024 11:23 AM Reporting Lab: [address] [address] Performing Lab: [address] [address] CHOLESTEROL 255 mg/dL H 135-200 LDL CHOLESTEROL 220.0 mg/dL H 0-110 HDL CHOLESTEROL <20 mg/dL L 40-60 TRIGLYCERIDE 188 mg/dL H 0-149 April 02, 2024 11:58 AM [facility] HEMOGLOBIN A1C Specimen Type: BLOOD Comment: Values [...] April 02, 2024 11:23 AM Reporting Lab: [address] [address] Performing Lab: [place] [phone] HEMOGLOBIN A1C 4.6 3.6-5.7 April 02, 2024 11:58 AM [facility] TSH Specimen Type: PLASMA Comment: CREATININE eGFR was calculated using the CKD-EPI 2020 equation. Ordering Provider: CHIDI DESIR Report Released Date/Time: April 02, 2024 11:23 AM Reporting Lab: [place] [phone] Performing Lab: [place] [phone] TSH 1.437 u[IU]/mL 0.55-4.78 April 02, 2024 11:58 AM [facility] FREE T4 Specimen Type: PLASMA Comment: CREATININE eGFR was calculated using the CKD-EPI 2020 equation. Ordering Provider: CHIDI DESIR Report Released Date/Time: April 02, 2024 11:23 AM Reporting Lab: [address] [address] Performing Lab: [address] [address] FREE T4 1.79 ng/dL H 0.89-1.76 April 02, 2024 11:58 AM [facility] TESTOSTERONE Specimen Type: SERUM No comment entered. Ordering Provider: CHIDI DESIR Report Released Date/Time: April 02, 2024 11:23 AM Reporting Lab: [address] [address] Performing Lab: [place] [phone] TESTOSTERONE 486.80 ng/dL April 02, 2024 11:58 AM [facility] URINALYSIS Specimen Type: URINE No comment entered. Ordering Provider: CHIDI DESIR Report Released Date/Time: April 02, 2024 11:23 AM Reporting Lab: [address] [address] Performing Lab: [address] [address] SPECIFIC GRAVITY 1.025 H 1.016-1.022 URINE GLUCOSE [...] COLOR Yellow April 02, 2024 11:58 AM [facility] COMPREHENSIVE METABOLIC PANEL Specimen Type: PLASMA Comment: CREATININE eGFR was calculated using the CKD-EPI 2020 equation. TRIGLYCERIDE REF RANGE: NORMAL <150 mg/dL BORDERLINE HIGH: 150-199 TRIGLYCERIDE mg/dL HIGH: 200-499 mg/dL VERY HIGH: >=500 mg/dL Ordering Provider: CHIDI DESIR Report Released Date/Time: April 02, 2024 11:23 AM Reporting Lab: [address] [address] Performing Lab: [address] [address] ALBUMIN 4.2 g/dL 3.2-4.8 ALKALINE PHOSPHATASE 46 [...] 108 mL/min April 02, 2024 11:58 AM [facility] CBC Specimen Type: BLOOD No comment entered. Ordering Provider: CHIDI DESIR Report Released Date/Time: April 02, 2024 11:23 AM Reporting Lab: [facility] [id number] [place] [address] Performing Lab: [facility] [id number] [place] [address] WBC COUNT 5.4 10*3/uL 3.6-11.0 RBC COUNT [...] 0.2 10*3/uL 0.0-0.3 MPV 8.4 fL 7.4-11.4 Encounter Notes: All associated encounter notes This section contains the clinical notes associated to the Encounter. Date/Time Encounter Note(s) Provider Source Mar 12, 2024 01:35 PM PACT NOTE: LOCAL TITLE: PACT NURSE TELEPHONE NOTE (T) STANDARD TITLE: PACT NOTE DATE OF NOTE: MAR 12, 2024@13:35 ENTRY DATE: MAR 12, 2024@13:36:02 AUTHOR: SALBADOR GANT EXP COSIGNER: URGENCY: STATUS: COMPLETED phoned to the clinic and left requesting pcp appt. for stomach issues. RN called back. Phone rang and went straight to twice. Left hippa appropriate with clinic number and extension for return call. Will address medical concerns when calls back. /duane/ SALBADOR GANT REGISTERED NURSE Signed: 03/12/2024 13:38 SALBADOR GANT [facility]
--- OUTSIDE RECORDS SUMMARY | 2024-12-01 15:16 | XMS_ITS | Encounter Summary ---
Author Name [facility] [facility] [place] Address [address] [place] [address] Care Team Providers Care Traffic Court Referee Name Role Phone CHIDI DESIR Primary Care [...] CAREMARK PRESCRIPT ION GEHA~ Nov 26, 2014 [id number] [phone] DENIZ TOBAR PATIENT CAREMARK PRESCRIPT ION GEHA Sep 13, 2014 [id number] [phone] RAMÓN OROPEZADENIZ PATIENT CAREMARK ([id number]) PRESCRIPT ION GEHA RX Nov 26, 2014 [id number] [phone] DUNGLACY OROPEZADENIZ PATIENT GE[facility] GEHA/ [facility] 2021Nov 26, 2021 [id number] [phone] RAMÓN OROPEZADENIZ PATIENT 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 [employer]UR[employer] GEHA Nov 26, 2017 AA [id number] DENIZ TOBAR PATIENT GEHA-[facility] PREFERRED PROVIDER ORGANIZAT ION (PPO) GEHA- [facility] STAND ANDREW Nov 26, 2023 [id number] [phone] DENIZ TOBAR PATIENT [facility] PREFERRED PROVIDER ORGANIZAT ION (PPO) GEHA Nov 26, 2014 [id number] DENIZ TOBAR PATIENT [facility] PREFERRED PROVIDER ORGANIZAT ION (PPO) GEHA Sep 13, 2014 [id number] [id number] [phone] DENIZ TOBAR PATIENT GEHA/[facility] PREFERRED PROVIDER ORGANIZAT ION (PPO) STAND ANDREW OPTIO N Nov 26, 2020 [id number] DENIZ TOBAR PATIENT Selected Encounter This section includes the information on record at [place] for the Encounter. Date/Time Encounter Type Encounter Description Reason Pro vider Source April 02, 2024 09:03 AM Outpatient Encounter ADMIN PAT ACTIVTIES (MASNONCT) I[facility] Encounter Template Text not used by [place] Plan of Treatment: Future Appointments (+ 6 months) and Future Tests (+/- 45 days) The Plan of Treatment section includes future care activities for the patient from all [place] treatmentfacilities. This section includes future appointments and future orders which are active, pending or scheduled. Future Appointments This section includes appointments that were scheduled to occur 6 months from the date of the Encounter, up to a maximum of 20 appointments. The data comes from all [place] treatment facilities. Appointment Date/Time Appointment Type Appointme nt Facility Name Jul 03, 2024 10:30 AM [facility]ATORY - [facility] Active, Pending, and Scheduled Orders This section includes a listing of several types of active, pending, and scheduled orders, including clinic medications orders, diagnostic test orders, procedure orders and consult orders; where the start date of the order is 45 days before the date of the Encounter or 45 days after the date of theEncounter. The data comes from all [place] treatment [facility]. Test Date/Time Test Type Test Details Facility Name April 02, 2024 12:00 AM Laboratory - Chemi stry Order C DIFF TOXOGENIC PCR STOOL FECES SP ONCE [facility] April 02, 2024 12:00 AM Laboratory - Chemi stry Order ENTERIC PANEL STOOL FECES SP ONCE [facility] April 02, 2024 12:00 AM Laboratory - Chemi stry Order INR BLUE TOP PL PLASMA SP [facility] Lab Results: +/- 30 days of the [...] Range Comment April 02, 2024 11:[address] [facility] TESTOSTERONE,FREE DIRECT Specimen Type: SERUM No comment entered. Ordering Provider: CHIDI DESIR Report Released Date/Time: April 02, 2024 11:23 AM Reporting Lab: [address] [address] Performing Lab: [address] [address] TESTOSTERONE,FR EE DIRECT 31.9 pg/mL H 6.8-21.5 April 02, 2024 11:[address] [facility] HEPATITIS B CORE AB TOTAL Specimen Type: SERUM No comment entered. Ordering Provider: CHIDI DESIR Report Released Date/Time: April 02, 2024 11:25 AM Reporting Lab: [address] [address] Performing Lab: [address] [address] HEPATITIS B CORE AB TOTAL Nonreactive Nonreactive April 02, 2024 11:[address] [facility] HEPATITIS A AB TOTAL Specimen Type: SERUM No comment entered. Ordering Provider: CHIDI DESIR Report Released Date/Time: April 02, 2024 11:25 AM Reporting Lab: [address] [address] Performing Lab: [address] [address] HEPATITIS A AB TOTAL REACTIVE Nonreactive April 02, 2024 11:[address] [facility] HEPATITIS B SURFACE AG Specimen Type: SERUM No comment entered. Ordering Provider: CHIDI DESIR Report Released Date/Time: April 02, 2024 11:25 AM Reporting Lab: [address] [address] Performing Lab: [address] [address] HEPATITIS B SURFACE AG Nonreactive Nonreactive April 02, 2024 11:[address] [facility] HEPATITIS B SURF AB Specimen Type: SERUM No comment entered. Ordering Provider: CHIDI DESIR Report Released Date/Time: April 02, 2024 11:25 AM Reporting Lab: [address] [address] Performing Lab: [address] [address] HEPATITIS B SURF AB <3.1 m[IU]/mL 0-9.99 April 02, 2024 11:[address] [facility] HEPATITIS C ANTIBODY Specimen Type: SERUM No comment entered. Ordering Provider: CHIDI DESIR Report Released Date/Time: April 02, 2024 11:25 AM Reporting Lab: [address] [address] Performing Lab: [address] [address] HEPATITIS C ANTIBODY Nonreactive Nonreactive April 02, 2024 11:[address] [facility] LIPID PROFILE Specimen Type: PLASMA Comment: CREATININE eGFR was calculated using the CKD-EPI 2020 equation. TRIGLYCERIDE REF RANGE: NORMAL <150 mg/dL BORDERLINE HIGH: 150-199 TRIGLYCERIDE mg/dL HIGH: 200-499 mg/dL VERY HIGH: >=500 mg/dL Ordering Provider: CHIDI DESIR Report Released Date/Time: April 02, 2024 11:23 AM Reporting Lab: [address] [address] Performing Lab: [address] [address] CHOLESTEROL 255 mg/dL H 135-200 LDL CHOLESTEROL 220.0 mg/dL H 0-110 HDL CHOLESTEROL <20 mg/dL L 40-60 TRIGLYCERIDE 188 mg/dL H 0-149 April 02, 2024 11:[address] [facility] HEMOGLOBIN A1C Specimen Type: BLOOD Comment: Values [...] April 02, 2024 11:23 AM Reporting Lab: [address] [address] Performing Lab: [address] [address] HEMOGLOBIN A1C 4.6 3.6-5.7 April 02, 2024 11:[address] [facility] TSH Specimen Type: PLASMA Comment: CREATININE eGFR was calculated using the CKD-EPI 2020 equation. Ordering Provider: CHIDI DESIR Report Released Date/Time: April 02, 2024 11:23 AM Reporting Lab: [address] [address] Performing Lab: [place] [id number] TSH 1.437 u[IU]/mL 0.55-4.78 April 02, 2024 11:[address] [facility] FREE T4 Specimen Type: PLASMA Comment: CREATININE eGFR was calculated using the CKD-EPI 2020 equation. Ordering Provider: CHIDI DESIR Report Released Date/Time: April 02, 2024 11:23 AM Reporting Lab: [address] [address] Performing Lab: [place] [id number] FREE T4 1.79 ng/dL H 0.89-1.76 April 02, 2024 11:[address] [facility] TESTOSTERONE Specimen Type: SERUM No comment entered. Ordering Provider: CHIDI DESIR Report Released Date/Time: April 02, 2024 11:23 AM Reporting Lab: [address] [address] Performing Lab: [address] [address] TESTOSTERONE 486.80 ng/dL April 02, 2024 11:[address] [facility] URINALYSIS Specimen Type: URINE No comment entered. Ordering Provider: CHIDI DESIR Report Released Date/Time: April 02, 2024 11:23 AM Reporting Lab: [address] [address] Performing Lab: [place] [id number] SPECIFIC GRAVITY 1.025 H 1.016-1.022 URINE GLUCOSE [...] COLOR Yellow April 02, 2024 11:[address] [facility] COMPREHENSIVE METABOLIC PANEL Specimen Type: PLASMA Comment: CREATININE eGFR was calculated using the CKD-EPI 2020 equation. TRIGLYCERIDE REF RANGE: NORMAL <150 mg/dL BORDERLINE HIGH: 150-199 TRIGLYCERIDE mg/dL HIGH: 200-499 mg/dL VERY HIGH: >=500 mg/dL Ordering Provider: CHIDI DESIR Report Released Date/Time: April 02, 2024 11:23 AM Reporting Lab: [address] [address] Performing Lab: [address] [address] ALBUMIN 4.2 g/dL 3.2-4.8 ALKALINE PHOSPHATASE 46 [...] 108 mL/min April 02, 2024 11:[address] [facility] CBC Specimen Type: BLOOD No comment entered. Ordering Provider: CHIDI DESIR Report Released Date/Time: April 02, 2024 11:23 AM Reporting Lab: [place] [address] [facility] [address] Performing Lab: [facility] [address] [facility] [address] WBC COUNT 5.4 10*3/uL 3.6-11.0 RBC COUNT [...] 0.2 10*3/uL 0.0-0.3 MPV 8.4 fL 7.4-11.4 Vital Signs: All taken on the encounter date This section contains inpatient and outpatient Vital Signs collected on the date of the Encounter. Date/Time Temperature Pulse Blood Pressure Respiratory Rate SP02 Pain Height Weight Body Mass Index Source April 02, 2024 11:04 AM 137/85 [facility] April 02, 2024 10:57 AM 97.8 89 18 95 5 74 212.7 27 [facility] Encounter Notes: All associated encounter notes This section contains the clinical notes associated to the Encounter. Date/Time Encounter Note(s) Provider Source April 02, 2024 09:03 AM LETTERS: LOCAL TITLE: SCHEDULING CONTACT ATTEMPT LETTER STANDARD TITLE: LETTERS DATE OF NOTE: APRIL 02, 2024@09:03 ENTRY DATE: APRIL 02, 2024@09:03:50 AUTHOR: WANDA PLASCENCIA EXP COSIGNER: URGENCY: STATUS: COMPLETED [facility] [address] [place] [address] March DENIZ FERREIRA [address] [place], [place] [address] Dear , [facility] has received a request to schedule you for a Consult appointment. We attempted to contact you via telephone on March and we were unable to reach you. This is our 2nd attempt to reach you. It is important that you contact us by March to schedule your appointment. Please call us at [phone] at extension [phone] between the hours of 8 AM to 430 PM EST, Sunday through Sunday to schedule your appointment. If you already made an appointment, please disregard this notification. We look forward to your call and thank you for your service. Vinod Roldanchirstine [address] [address] WANDA PLASCENCIA [facility]
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
--- OUTSIDE RECORDS SUMMARY | 2024-12-01 15:16 | XMS_ITS ---
Author Name [facility] [place] [facility] [place] Address [address] [place] [address] Care Team Providers Care Brass Pickler Name Role Phone CHIDI DESIR Primary Care [...] CAREMARK PRESCRIPT ION GEHA~ Nov 26, 2014 [id number] [phone] DENIZ TOBAR PATIENT CAREMARK PRESCRIPT ION GEHA Sep 13, 2014 [id number] [phone] RAMÓN OROPEZADENIZ PATIENT CAREMARK ([id number]) PRESCRIPT ION GEHA RX Nov 26, 2014 [id number] [phone] DUNGLACY OROPEZADENIZ PATIENT GEHA [facility] MENTAL HEALTH GEHA/ ASA 2021Nov 26, 2021 [id number] [phone] RAMÓN OROPEZADENIZ PATIENT 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 FEDERAL DENTAL INSURANCE GEHA Nov 26, 2017 AA [id number] DENIZ TOBAR PATIENT GEHA-[facility] PREFERRED PROVIDER ORGANIZAT ION (PPO) GEHA- [facility] STAND ANDREW Nov 26, 2023 [id number] DENIZ TOBAR PATIENT [facility] PREFERRED PROVIDER ORGANIZAT ION (PPO) GEHA Nov 26, 2014 [id number] DENIZ TOBAR PATIENT [facility] PREFERRED PROVIDER ORGANIZAT ION (PPO) GEHA Sep 13, 2014 [id number] [id number] DENIZ TOBAR PATIENT GEHA/[facility] PREFERRED PROVIDER ORGANIZAT ION (PPO) STAND ANDREW OPTIO N Nov 26, 2020 [id number] DENIZ TOBAR PATIENT Selected Encounter This section includes the information on record at [place] for the Encounter. Date/Time Encounter Type Encounter Description Reason Pro vider Source May 30, 2024 10:08 AM Outpatient Encounter ADMIN PAT ACTIVTIES (MASNONCT) IHE Encounter Template Text not used by [place] Plan of Treatment: Future Appointments (+ 6 months) and Future Tests (+/- 45 days) The Plan of Treatment section includes future care activities for the patient from all [place] treatmentfacilities. This section includes future appointments and future orders which are active, pending or scheduled. Future Appointments This section includes appointments that were scheduled to occur 6 months from the date of the Encounter, up to a maximum of 20 appointments. The data comes from all [place] treatment facilities. Appointment Date/Time Appointment Type Appointme nt Facility Name Jul 03, 2024 10:30 AM AMBULATORY - [facility] Active, Pending, and Scheduled Orders This section includes a listing of several types of active, pending, and scheduled orders, including clinic medications orders, diagnostic test orders, procedure orders and consult orders; where the start date of the order is 45 days before the date of the Encounter or 45 days after the date of theEncounter. The data comes from all [place] treatment [facility]. Test Date/Time Test Type Test Details Facility Name Jul 03, 2024 12:00 AM Laboratory - Chemi stry Order ENTERIC PANEL STOOL FECES SP ONCE [facility] Jul 03, 2024 12:00 AM Laboratory - Chemi stry Order C DIFF TOXOGENIC PCR STOOL FECES SP ONCE [facility] Encounter Notes: All associated encounter notes This section contains the clinical notes associated to the Encounter. Date/Time Encounter Note(s) Provider Source May 30, 2024 10:09 AM LETTERS: LOCAL TITLE: SCHEDULING CONTACT ATTEMPT LETTER STANDARD TITLE: LETTERS DATE OF NOTE: MAY 30, 2024@10:09 ENTRY DATE: MAY 30, 2024@10:09:08 AUTHOR: MICHELLE GALVAN EXP COSIGNER: URGENCY: STATUS: COMPLETED [facility] [address] [place] [address] May DENIZ FERREIRA [address] [place], [place] [address] Dear [place] has received a request to reschedule you for a Cancel by Patient appointment. We attempted to contact you via telephone on May and we were unable to reach you. This is our 2nd attempt to reach you. It is important that you contact us by May to schedule your appointment. Please call us at [phone] at extension [phone] between the hours of 0800 AM to 1630 PM EST, Sunday through Sunday to schedule your appointment. If you already made an appointment, please disregard this notification. We look forward to your call and thank you for your service. Vinod Gregg [address] [address] MICHELLE GALVAN [facility]
--- OUTSIDE RECORDS SUMMARY | 2024-12-01 15:16 | XMS_ITS | Encounter Summary ---
Author Name [facility] [place] [facility] [place] Address [address] [place] [address] Care Team Providers Care City Supervisor Name Role Phone CHIDI DESIR Primary Care [...] CAREMARK PRESCRIPT ION GEHA~ Nov 26, 2014 [id number] [phone] DENIZ TOBAR PATIENT CAREMARK PRESCRIPT ION GEHA Sep 13, 2014 [id number] [phone] RAMÓN OROPEZADENIZ PATIENT CAREMARK ([id number]) PRESCRIPT ION GEHA RX Nov 26, 2014 [id number] [phone] DUNGLACY OROPEZADENIZ PATIENT [facility] GEHA/ [facility] 2021Nov 26, 2021 [id number] [phone] RAMÓN OROPEZADENIZ PATIENT 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 [employer]URANCE GEHA Nov 26, 2017 [id number] DENIZ TOBAR PATIENT GEHA-[facility] PREFERRED PROVIDER ORGANIZAT ION (PPO) GEHA- [facility] STAND ANDREW Nov 26, 2023 [id number] DENIZ TOBAR PATIENT [facility] PREFERRED PROVIDER ORGANIZAT ION (PPO) GEHA Nov 26, 2014 [id number] DENIZ TOBAR PATIENT [facility] PREFERRED PROVIDER ORGANIZAT ION (PPO) GEHA Sep 13, 2014 [id number] ALTH [id number] [phone] DENIZ TOBAR PATIENT GEHA/[facility] PREFERRED PROVIDER ORGANIZAT ION (PPO) STAND ANDREW OPTIO N Nov 26, 2020 [id number] DENIZ TOBAR PATIENT Selected Encounter This section includes the information on record at [place] for the Encounter. Date/Time Encounter Type Encounter Description Reason Pro vider Source April 15, 2024 03:38 PM Outpatient Encounter ADMIN PAT ACTIVTIES (MASNONCT) IHE Encounter Template Text not used by CT Plan of Treatment: Future Appointments (+ 6 [...] Jul 03, 2024 10:30 AM AM[facility]ATORY - [facility] Active, Pending, and Scheduled Orders This section includes a listing of several types of active, pending, and scheduled orders, including clinic medications orders, diagnostic test orders, procedure orders and consult orders; where the start date of the order is 45 days before the date of the Encounter or 45 days after the date of theEncounter. The data comes from all [place] treatment [facility]. Test Date/Time Test Type Test Details Facility Name April 02, 2024 12:00 AM Laboratory - Chemi stry Order C DIFF TOXOGENIC PCR STOOL FECES SP ONCE [facility] April 02, 2024 12:00 AM Laboratory - Chemi stry Order ENTERIC PANEL STOOL FECES SP ONCE [facility] April 02, 2024 12:00 AM Laboratory - Chemi stry Order INR BLUE TOP PL PLASMA SP [facility] Lab Results: +/- 30 days [...] Range Comment April 02, 2024 11:58 AM [facility] TESTOSTERONE,FREE DIRECT Specimen Type: SERUM No comment entered. Ordering Provider: CHIDI DESIR Report Released Date/Time: April 02, 2024 11:23 AM Reporting Lab: [address] [address] Performing Lab: [address] [address] TESTOSTERONE,FR EE DIRECT 31.9 pg/mL H 6.8-21.5 April 02, 2024 11:58 AM [facility] HEPATITIS B CORE AB TOTAL Specimen Type: SERUM No comment entered. Ordering Provider: CHIDI DESIR Report Released Date/Time: April 02, 2024 11:25 AM Reporting Lab: [address] [address] Performing Lab: [address] [address] HEPATITIS B CORE AB TOTAL Nonreactive Nonreactive April 02, 2024 11:58 AM [facility] HEPATITIS A AB TOTAL Specimen Type: SERUM No comment entered. Ordering Provider: CHIDI DESIR Report Released Date/Time: April 02, 2024 11:25 AM Reporting Lab: [address] [address] Performing Lab: [address] [address] HEPATITIS A AB TOTAL REACTIVE Nonreactive April 02, 2024 11:58 AM [facility] HEPATITIS B SURFACE AG Specimen Type: SERUM No comment entered. Ordering Provider: CHIDI DESIR Report Released Date/Time: April 02, 2024 11:25 AM Reporting Lab: [address] [address] Performing Lab: [address] [address] HEPATITIS B SURFACE AG Nonreactive Nonreactive April 02, 2024 11:58 AM [facility] HEPATITIS B SURF AB Specimen Type: SERUM No comment entered. Ordering Provider: CHIDI DESIR Report Released Date/Time: April 02, 2024 11:25 AM Reporting Lab: [address] [address] Performing Lab: [address] [address] HEPATITIS B SURF AB <3.1 m[IU]/mL 0-9.99 April 02, 2024 11:58 AM [facility] HEPATITIS C ANTIBODY Specimen Type: SERUM No comment entered. Ordering Provider: CHIDI DESIR Report Released Date/Time: April 02, 2024 11:25 AM Reporting Lab: [address] [address] Performing Lab: [address] [address] HEPATITIS C ANTIBODY Nonreactive Nonreactive April 02, 2024 11:58 AM [facility] LIPID PROFILE Specimen Type: PLASMA Comment: CREATININE eGFR was calculated using the CKD-EPI 2020 equation. TRIGLYCERIDE REF RANGE: NORMAL <150 mg/dL BORDERLINE HIGH: 150-199 TRIGLYCERIDE mg/dL HIGH: 200-499 mg/dL VERY HIGH: >=500 mg/dL Ordering Provider: CHIDI DESIR Report Released Date/Time: April 02, 2024 11:23 AM Reporting Lab: [address] [address] Performing Lab: [address] [address] CHOLESTEROL 255 mg/dL H 135-200 LDL CHOLESTEROL 220.0 mg/dL H 0-110 HDL CHOLESTEROL <20 mg/dL L 40-60 TRIGLYCERIDE 188 mg/dL H 0-149 April 02, 2024 11:58 AM [facility] HEMOGLOBIN A1C Specimen Type: BLOOD [...] 02, 2024 11:23 AM Reporting Lab: [address] [address] Performing Lab: [address] [address] HEMOGLOBIN A1C 4.6 3.6-5.7 April 02, 2024 11:58 AM [facility] TSH Specimen Type: PLASMA Comment: CREATININE eGFR was calculated using the CKD-EPI 2020 equation. Ordering Provider: CHIDI DESIR Report Released Date/Time: April 02, 2024 11:23 AM Reporting Lab: [address] [address] Performing Lab: [place] [phone] TSH 1.437 u[IU]/mL 0.55-4.78 April 02, 2024 11:58 AM [facility] FREE T4 Specimen Type: PLASMA Comment: CREATININE eGFR was calculated using the CKD-EPI 2020 equation. Ordering Provider: CHIDI DESIR Report Released Date/Time: April 02, 2024 11:23 AM Reporting Lab: [address] [address] Performing Lab: [place] [phone] FREE T4 1.79 ng/dL H 0.89-1.76 April 02, 2024 11:58 AM [facility] TESTOSTERONE Specimen Type: SERUM No comment entered. Ordering Provider: CHIDI DESIR Report Released Date/Time: April 02, 2024 11:23 AM Reporting Lab: [address] [address] Performing Lab: [address] [address] TESTOSTERONE 486.80 ng/dL April 02, 2024 11:58 AM [facility] URINALYSIS Specimen Type: URINE No comment entered. Ordering Provider: CHIDI DESIR Report Released Date/Time: April 02, 2024 11:23 AM Reporting Lab: [address] [address] Performing Lab: [place] [phone] SPECIFIC GRAVITY 1.025 H 1.016-1.022 URINE GLUCOSE [...] COLOR Yellow April 02, 2024 11:58 AM [facility] COMPREHENSIVE METABOLIC PANEL Specimen Type: PLASMA Comment: CREATININE eGFR was calculated using the CKD-EPI 2020 equation. TRIGLYCERIDE REF RANGE: NORMAL <150 mg/dL BORDERLINE HIGH: 150-199 TRIGLYCERIDE mg/dL HIGH: 200-499 mg/dL VERY HIGH: >=500 mg/dL Ordering Provider: CHIDI DESIR Report Released Date/Time: April 02, 2024 11:23 AM Reporting Lab: [address] [address] Performing Lab: [address] [address] ALBUMIN 4.2 g/dL 3.2-4.8 ALKALINE PHOSPHATASE 46 [...] 108 mL/min April 02, 2024 11:58 AM [facility] CBC Specimen Type: BLOOD No comment entered. Ordering Provider: CHIDI DESIR Report Released Date/Time: April 02, 2024 11:23 AM Reporting Lab: [place] [address] [facility] [address] Performing Lab: [facility] [address] [facility] [address] WBC COUNT 5.4 10*3/uL 3.6-11.0 RBC COUNT [...] Encounter. Date/Time Encounter Note(s) Provider Source April 15, 2024 03:38 PM LETTERS: LOCAL TITLE: SCHEDULING CONTACT ATTEMPT LETTER STANDARD TITLE: LETTERS DATE OF NOTE: APRIL 15, 2024@15:38 ENTRY DATE: APRIL 15, 2024@15:38:59 AUTHOR: WANDA PLASCENCIA EXP COSIGNER: URGENCY: STATUS: COMPLETED [facility] [address] [place] [address] March DENIZ FERREIRA [address] [place], [place] [address] Dear , [facility] a request to reschedule you for a Cancel by Patient appointment. We attempted to contact you via telephone on March and we were unable to reach you. This is our 2nd attempt to reach you. It is important that you contact us by Apr to schedule your appointment. Please call us at [phone] at extension [phone] between the hours of 8 AM to 430 PM EST, Sunday through Sunday to schedule your appointment. If you already made an appointment, please disregard this notification. We look forward to your call and thank you for your service. Vinod Gregg [place] [id number] WANDA PLASCENCIA [facility]
--- OUTSIDE RECORDS SUMMARY | 2024-12-01 15:16 | XMS_ITS | Encounter Summary ---
Author Name [facility] [place] [facility] [place] Address [address] [place] [address] Care Team Providers Care Client Care Manager Name Role Phone CHIDI DESIR Primary Care [...] CAREMARK PRESCRIPT ION GEHA~ Nov 26, 2014 [id number] RAMÓN JOHNNADENIZ PATIENT CAREMARK PRESCRIPT ION GEHA Sep 13, 2014 [id number] [phone] RAMÓN OROPEZADENIZ PATIENT CAREMARK ([id number]) PRESCRIPT ION GEHA RX Nov 26, 2014 [id number] [phone] RAMÓN OROPEZADENIZ PATIENT GEHA [facility] MENTAL HE[facility] GEHA/ ASA 2021Nov 26, 2021 [id number] [id number] RAMÓN OROPEZADENIZ 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 [employer] DENTAL INSURANCE GEHA Nov 26, 2017 [id number] DENIZ TOBAR PATIENT GEHA-[facility] PREFERRED PROVIDER ORGANIZAT ION (PPO) GEHA- [facility]W Nov 26, 2023 [id number] DENIZ TOBAR PATIENT [facility] PREFERRED PROVIDER ORGANIZAT ION (PPO) GEHA Nov 26, 2014 [id number] DENIZ TOBAR PATIENT [facility] PREFERRED PROVIDER ORGANIZAT ION (PPO) GEHA Sep 13, 2014 [id number] ALTH [id number] [phone] DENIZ TOBAR PATIENT GEHA/[facility] PREFERRED PROVIDER ORGANIZAT ION (PPO) STAND AND[facility] OPTIO N Nov 26, 2020 [id number] DENIZ TOBAR PATIENT Selected Encounter This section includes the information on record at [place] for the Encounter. Date/Time Encounter Type Encounter Description Reason Pro vider Source 2024 09:45 AM Outpatient Encounter PRIMARY CARE/MEDICINE IHE Encounter Template Text not used by [place] Plan of Treatment: Future Appointments (+ 6 months) and Future Tests (+/- 45 days) The Plan of Treatment section includes future care activities for the patient from all [place] treatmentfacilities. This section includes future appointments and [...] Jul 03, 2024 10:30 AM AM[facility]ULATORY - [facility] Active, Pending, and Scheduled Orders This section includes a listing of several types of active, pending, and scheduled orders, including clinic medications orders, diagnostic test orders, procedure orders and consult orders; where the start date of the order is 45 days before the date of the Encounter or 45 days after the date of theEncounter. The data comes from all [facility]. Test Date/Time Test Type Test Details Facility Name April 02, 2024 12:00 AM Laboratory - Chemi stry Order C DIFF TOXOGENIC PCR STOOL FECES SP ONCE [facility] April 02, 2024 12:00 AM Laboratory - Chemi stry Order ENTERIC PANEL STOOL FECES SP ONCE [facility] April 02, 2024 12:00 AM Laboratory - Chemi stry Order INR BLUE TOP PL PLASMA SP [facility] Lab Results: +/- 30 days of the [...] April 02, 2024 11:58 AM [facility] TESTOSTERONE,FREE DIRECT Specimen Type: SERUM No comment entered. Ordering Provider: CHIDI DESIR Report Released Date/Time: April 02, 2024 11:23 AM Reporting Lab: [address] [address] Performing Lab: [address] [address] TESTOSTERONE,FR EE DIRECT 31.9 pg/mL H 6.8-21.5 April 02, 2024 11:58 AM [facility] HEPATITIS B CORE AB TOTAL Specimen Type: SERUM No comment entered. Ordering Provider: CHIDI DESIR Report Released Date/Time: April 02, 2024 11:25 AM Reporting Lab: [address] [address] Performing Lab: [address] [address] HEPATITIS B CORE AB TOTAL Nonreactive Nonreactive April 02, 2024 11:58 AM [facility] HEPATITIS A AB TOTAL Specimen Type: SERUM No comment entered. Ordering Provider: CHIDI DESIR Report Released Date/Time: April 02, 2024 11:25 AM Reporting Lab: [address] [address] Performing Lab: [address] [address] HEPATITIS A AB TOTAL REACTIVE Nonreactive April 02, 2024 11:58 AM [facility] HEPATITIS B SURFACE AG Specimen Type: SERUM No comment entered. Ordering Provider: CHIDI DESIR Report Released Date/Time: April 02, 2024 11:25 AM Reporting Lab: [address] [address] Performing Lab: [address] [address] HEPATITIS B SURFACE AG Nonreactive Nonreactive April 02, 2024 11:58 AM [facility] HEPATITIS B SURF AB Specimen Type: SERUM No comment entered. Ordering Provider: CHIDI DESIR Report Released Date/Time: April 02, 2024 11:25 AM Reporting Lab: [address] [address] Performing Lab: [place] [phone] HEPATITIS B SURF AB <3.1 m[IU]/mL 0-9.99 April 02, 2024 11:58 AM [facility] HEPATITIS C ANTIBODY Specimen Type: SERUM No comment entered. Ordering Provider: CHIDI DESIR Report Released Date/Time: April 02, 2024 11:25 AM Reporting Lab: [address] [address] Performing Lab: [address] [address] HEPATITIS C ANTIBODY Nonreactive Nonreactive April 02, 2024 11:58 AM [facility] HEMOGLOBIN A1C Specimen Type: BLOOD Comment: Values [...] April 02, 2024 11:23 AM Reporting Lab: [address] [address] Performing Lab: [address] [address] HEMOGLOBIN A1C 4.6 3.6-5.7 April 02, 2024 11:58 AM [facility] LIPID PROFILE Specimen Type: PLASMA Comment: CREATININE eGFR was calculated using the CKD-EPI 2020 equation. TRIGLYCERIDE REF RANGE: NORMAL <150 mg/dL BORDERLINE HIGH: 150-199 TRIGLYCERIDE mg/dL HIGH: 200-499 mg/dL VERY HIGH: >=500 mg/dL Ordering Provider: CHIDI DESIR Report Released Date/Time: April 02, 2024 11:23 AM Reporting Lab: [address] [address] Performing Lab: [address] [address] CHOLESTEROL 255 mg/dL H 135-200 LDL CHOLESTEROL 220.0 mg/dL H 0-110 HDL CHOLESTEROL <20 mg/dL L 40-60 TRIGLYCERIDE 188 mg/dL H 0-149 April 02, 2024 11:58 AM [facility] TSH Specimen Type: PLASMA Comment: CREATININE eGFR was calculated using the CKD-EPI 2020 equation. Ordering Provider: CHIDI DESIR Report Released Date/Time: April 02, 2024 11:23 AM Reporting Lab: [address] [address] Performing Lab: [place] [phone] TSH 1.437 u[IU]/mL 0.55-4.78 April 02, 2024 11:58 AM [facility] FREE T4 Specimen Type: PLASMA Comment: CREATININE eGFR was calculated using the CKD-EPI 2020 equation. Ordering Provider: CHIDI DESIR Report Released Date/Time: April 02, 2024 11:23 AM Reporting Lab: [address] [address] Performing Lab: [address] [address] FREE T4 1.79 ng/dL H 0.89-1.76 April 02, 2024 11:58 AM [facility] TESTOSTERONE Specimen Type: SERUM No comment entered. Ordering Provider: CHIDI DESIR Report Released Date/Time: April 02, 2024 11:23 AM Reporting Lab: [address] [address] Performing Lab: [address] [address] TESTOSTERONE 486.80 ng/dL April 02, 2024 11:58 AM [facility] URINALYSIS Specimen Type: URINE No comment entered. Ordering Provider: CHIDI DESIR Report Released Date/Time: April 02, 2024 11:23 AM Reporting Lab: [address] [address] Performing Lab: [address] [address] SPECIFIC GRAVITY 1.025 H 1.016-1.022 URINE GLUCOSE [...] April 02, 2024 11:58 AM [facility] COMPREHENSIVE METABOLIC PANEL Specimen Type: PLASMA Comment: CREATININE eGFR was calculated using the CKD-EPI 2020 equation. TRIGLYCERIDE REF RANGE: NORMAL <150 mg/dL BORDERLINE HIGH: 150-199 TRIGLYCERIDE mg/dL HIGH: 200-499 mg/dL VERY HIGH: >=500 mg/dL Ordering Provider: CHIDI DESIR Report Released Date/Time: April 02, 2024 11:23 AM Reporting Lab: [address] [address] Performing Lab: [address] [address] ALBUMIN 4.2 g/dL 3.2-4.8 ALKALINE PHOSPHATASE 46 [...] April 02, 2024 11:58 AM [facility] CBC Specimen Type: BLOOD No comment entered. Ordering Provider: CHIDI DESIR Report Released Date/Time: April 02, 2024 11:23 AM Reporting Lab: [address] [address] Performing Lab: [facility] [address] [facility] [address] WBC COUNT 5.4 10*3/uL 3.6-11.0 RBC COUNT [...] the Encounter. Date/Time Encounter Note(s) Provider Source 2024 09:45 AM NONVA REPORT: LOCAL TITLE: NON-VA MEDICAL RECORDS STANDARD TITLE: NONVA REPORT DATE OF NOTE: 2024@09:45 ENTRY DATE: 2024@09:46 AUTHOR: VANIA MAIN EXP COSIGNER: URGENCY: STATUS: COMPLETED non [place] medical records received from outside facility reviewed by pcp. records to be scanned into vista. /duane/ VANIA Alanis REGISTERED NURSE Signed: 2024 09:46 VANIA MAIN [facility]
--- OUTSIDE RECORDS SUMMARY | 2024-12-01 15:16 | XMS_ITS | Encounter Summary ---
Author Name [facility] [place] [facility] [place] Address [address] [place] [address] Care Team Providers Care Anatomic Pathologist Name Role Phone CHIDI DESIR Primary Care [...] CAREMARK PRESCRIPT ION GEHA~ Nov 26, 2014 [id number] [phone] DENIZ TOBAR PATIENT CAREMARK PRESCRIPT ION GEHA Sep 13, 2014 [id number] [phone] RAMÓN OROPEZADENIZ PATIENT CAREMARK ([id number]) PRESCRIPT ION GEHA RX Nov 26, 2014 [id number] [phone] DUNGLACY OROPEZADENIZ PATIENT GEHA [facility]IOR[facility] MENTAL HEALTH GEHA/ ASA 2021Nov 26, 2021 [id number] [id number] RAMÓN OROPEZADENIZ PATIENT 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 [employer] DENTAL INSURANCE GEHA Nov 26, 2017 AA [id number] DENIZ TOBAR PATIENT GEHA-[facility] PREFERRED PROVIDER ORGANIZAT ION (PPO) GEHA- [facility] STAND ANDREW Nov 26, 2023 [id number] DENIZ TOBAR PATIENT [facility] PREFERRED PROVIDER ORGANIZAT ION (PPO) GEHA Nov 26, 2014 [id number] DENIZ TOBAR PATIENT [facility] PREFERRED PROVIDER ORGANIZAT ION (PPO) GEHA Sep 13, 2014 [id number] ALTH [id number] [phone] DENIZ TOBAR PATIENT GEHA/[facility] PREFERRED PROVIDER ORGANIZAT ION (PPO) STAND ANDREW OPTIO N Nov 26, 2020 [id number] DENIZ TOBAR PATIENT Selected Encounter This section includes the information on record at [place] for the Encounter. Date/Time Encounter Type Encounter Description Reason Pro vider Source April 03, 2024 10:48 AM Outpatient Encounter ADMIN PAT ACTIVTIES (MASNONCT) [...] Jul 03, 2024 10:30 AM AMBULATORY - [facility] Active, Pending, and Scheduled Orders This section includes a listing of several types of active, pending, and scheduled orders, including clinic medications orders, diagnostic test orders, procedure orders and consult orders; where the start date of the order is 45 days before the date of the Encounter or 45 days after the date of theEncounter. The data comes from all [place] treatment [facility]. Test Date/Time Test Type Test Details Facility Name April 02, 2024 12:00 AM Laboratory - Chemi stry Order C DIFF TOXOGENIC PCR STOOL FECES SP ONCE [facility] April 02, 2024 12:00 AM Laboratory - Chemi stry Order ENTERIC PANEL STOOL FECES SP ONCE [facility] April 02, 2024 12:00 AM Laboratory - Chemi stry Order INR BLUE TOP PL PLASMA SP [facility] Lab Results: +/- 30 days [...] Range Comment April 02, 2024 11:58 AM [facility] TESTOSTERONE,FREE DIRECT Specimen Type: SERUM No comment entered. Ordering Provider: CHIDI DESIR Report Released Date/Time: April 02, 2024 11:23 AM Reporting Lab: [address] [address] Performing Lab: [address] [address] TESTOSTERONE,FR EE DIRECT 31.9 pg/mL H 6.8-21.5 April 02, 2024 11:58 AM [facility] HEPATITIS A AB TOTAL Specimen Type: SERUM No comment entered. Ordering Provider: CHIDI DESIR Report Released Date/Time: April 02, 2024 11:25 AM Reporting Lab: [address] [address] Performing Lab: [address] [address] HEPATITIS A AB TOTAL REACTIVE Nonreactive April 02, 2024 11:58 AM [facility] HEPATITIS B CORE AB TOTAL Specimen Type: SERUM No comment entered. Ordering Provider: CHIDI DESIR Report Released Date/Time: April 02, 2024 11:25 AM Reporting Lab: [address] [address] Performing Lab: [address] [address] HEPATITIS B CORE AB TOTAL Nonreactive Nonreactive April 02, 2024 11:58 AM [facility] HEPATITIS B SURFACE AG Specimen Type: SERUM No comment entered. Ordering Provider: CHIDI DESIR Report Released Date/Time: April 02, 2024 11:25 AM Reporting Lab: [address] [address] Performing Lab: [address] [address] HEPATITIS B SURFACE AG Nonreactive Nonreactive April 02, 2024 11:58 AM [facility] HEPATITIS C ANTIBODY Specimen Type: SERUM No comment entered. Ordering Provider: CHIDI DESIR Report Released Date/Time: April 02, 2024 11:25 AM Reporting Lab: [address] [address] Performing Lab: [address] [address] HEPATITIS C ANTIBODY Nonreactive Nonreactive April 02, 2024 11:58 AM [facility] HEPATITIS B SURF AB Specimen Type: SERUM No comment entered. Ordering Provider: CHIDI DEISR Report Released Date/Time: April 02, 2024 11:25 AM Reporting Lab: [address] [address] Performing Lab: [address] [address] HEPATITIS B SURF AB <3.1 m[IU]/mL 0-9.99 April 02, 2024 11:58 AM [facility] LIPID PROFILE Specimen Type: PLASMA Comment: CREATININE eGFR was calculated using the CKD-EPI 2020 equation. TRIGLYCERIDE REF RANGE: NORMAL <150 mg/dL BORDERLINE HIGH: 150-199 TRIGLYCERIDE mg/dL HIGH: 200-499 mg/dL VERY HIGH: >=500 mg/dL Ordering Provider: CHIDI DESIR Report Released Date/Time: April 02, 2024 11:23 AM Reporting Lab: [address] [address] Performing Lab: [address] [address] CHOLESTEROL 255 mg/dL H 135-200 LDL CHOLESTEROL 220.0 mg/dL H 0-110 HDL CHOLESTEROL <20 mg/dL L 40-60 TRIGLYCERIDE 188 mg/dL H 0-149 April 02, 2024 11:58 AM [facility] HEMOGLOBIN A1C Specimen Type: BLOOD [...] April 02, 2024 11:23 AM Reporting Lab: [address] [address] Performing Lab: [address] [address] HEMOGLOBIN A1C 4.6 3.6-5.7 April 02, 2024 11:58 AM [facility] TSH Specimen Type: PLASMA Comment: CREATININE eGFR was calculated using the CKD-EPI 2020 equation. Ordering Provider: CHIDI DESIR Report Released Date/Time: April 02, 2024 11:23 AM Reporting Lab: [address] [address] Performing Lab: [place] [phone] TSH 1.437 u[IU]/mL 0.55-4.78 April 02, 2024 11:58 AM [facility] FREE T4 Specimen Type: PLASMA Comment: CREATININE eGFR was calculated using the CKD-EPI 2020 equation. Ordering Provider: CHIDI DESIR Report Released Date/Time: April 02, 2024 11:23 AM Reporting Lab: [address] [address] Performing Lab: [place] [phone] FREE T4 1.79 ng/dL H 0.89-1.76 April 02, 2024 11:58 AM [facility] TESTOSTERONE Specimen Type: SERUM No comment entered. Ordering Provider: CHIDI DESIR Report Released Date/Time: April 02, 2024 11:23 AM Reporting Lab: [address] [address] Performing Lab: [address] [address] TESTOSTERONE 486.80 ng/dL April 02, 2024 11:58 AM [facility] URINALYSIS Specimen Type: URINE No comment entered. Ordering Provider: CHIDI DESIR Report Released Date/Time: April 02, 2024 11:23 AM Reporting Lab: [address] [address] Performing Lab: [place] [phone] SPECIFIC GRAVITY 1.025 H 1.016-1.022 URINE GLUCOSE [...] COLOR Yellow April 02, 2024 11:58 AM [facility] COMPREHENSIVE METABOLIC PANEL Specimen Type: PLASMA Comment: CREATININE eGFR was calculated using the CKD-EPI 2020 equation. TRIGLYCERIDE REF RANGE: NORMAL <150 mg/dL BORDERLINE HIGH: 150-199 TRIGLYCERIDE mg/dL HIGH: 200-499 mg/dL VERY HIGH: >=500 mg/dL Ordering Provider: CHIDI DESIR Report Released Date/Time: April 02, 2024 11:23 AM Reporting Lab: [address] [address] Performing Lab: [address] [address] ALBUMIN 4.2 g/dL 3.2-4.8 ALKALINE PHOSPHATASE 46 [...] 108 mL/min April 02, 2024 11:58 AM [facility] CBC Specimen Type: BLOOD No comment entered. Ordering Provider: CHIDI DESIR Report Released Date/Time: April 02, 2024 11:23 AM Reporting Lab: [place] [address] [facility] [address] Performing Lab: [facility] [address] [facility] [address] WBC COUNT 5.4 10*3/uL 3.6-11.0 RBC COUNT [...] Encounter. Date/Time Encounter Note(s) Provider Source April 03, 2024 10:48 AM LETTERS: LOCAL TITLE: SCHEDULING CONTACT ATTEMPT LETTER STANDARD TITLE: LETTERS DATE OF NOTE: APRIL 03, 2024@10:48 ENTRY DATE: APRIL 03, 2024@10:48:33 AUTHOR: ELICEO HIGGINS COSIGNER: URGENCY: STATUS: COMPLETED [facility] [address] [place] [address] March DENIZ FERREIRA [address] [place], [place] [address] [place] has received a request to schedule you for a Return to Clinic Order appointment. We attempted to contact you via telephone on March and we were unable to reach you. This is our 2nd attempt to reach you. It is important that you contact us by March to schedule your appointment. Please call us at [phone] at extension [phone] between the hours of 8 AM to 4:30 PM EST, Sunday through Sunday to schedule your appointment. If you already made an appointment, please disregard this notification. We look forward to your call and thank you for your service. Vinod Gregg [address] [address] ELICEO HIGGINS [facility]
--- OUTSIDE RECORDS SUMMARY | 2024-12-01 15:17 | XMS_ITS | Encounter Summary ---
Author Name [facility] [place] [facility] [place] Address [address] [place] [address] Care Team Providers Care Strip Stamp Straightener Name Role Phone CHIDI DESIR Primary Care [...] CAREMARK PRESCRIPT ION GEHA~ Nov 26, 2014 [id number] [phone] RAMÓN JOHNNADENIZ PATIENT CAREMARK PRESCRIPT ION GEHA Sep 13, 2014 [id number] [phone] RAMÓN OROPEZADENIZ PATIENT CAREMARK ([id number]) PRESCRIPT ION GEHA RX Nov 26, 2014 [id number] [phone] RAMÓN OROPEZADENIZ PATIENT GEHA [facility] BEHAVIORAL HE[facility] MENTAL HEALTH GEHA/ ASA 2021Nov 26, 2021 [id number] [phone] RAMÓN OROPEZADENIZ 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 FEDERAL DENTAL INSURANCE GEHA Nov 26, 2017 AA [id number] DENIZ TOBAR PATIENT GEHA-[facility] PREFERRED PROVIDER ORGANIZAT ION (PPO) GEHA- [facility] STAND ANDREW Nov 26, 2023 [id number] DENIZ TOBAR PATIENT [facility] PREFERRED PROVIDER ORGANIZAT ION (PPO) GEHA Nov 26, 2014 [id number] [phone] DENIZ TOBAR PATIENT [facility] PREFERRED PROVIDER ORGANIZAT ION (PPO) GEHA Sep 13, 2014 [id number] ALTH [id number] DENIZ TOBAR PATIENT GEHA/[facility] PREFERRED PROVIDER ORGANIZAT ION (PPO) STAND ANDREW OPTIO N Nov 26, 2020 [id number] DENIZ TOBAR PATIENT Selected Encounter This section includes the information on record at [place] for the Encounter. Date/Time Encounter Type Encounter Description Reason Pro vider Source Sep 01, 2024 10:32 AM Outpatient Encounter TELEPHONE PRIMARY CARE IHE Encounter Template Text not used by [facility] Plan of Treatment: Future Appointments (+ 6 months) and Future Tests (+/- 45 days) The Plan of Treatment section includes future care activities for the patient from all [place] treatmentfacilities. This section includes future appointments and future orders which are active, pending or scheduled. Future Appointments This section includes appointments that were scheduled to occur 6 months from the date of the Encounter, up to a maximum of 20 appointments. The data comes from all [place] treatment facilities. Appointment Date/Time Appointment Type Appointme nt Facility Name Dec 23, 2024 09:45 AM AMBULATORY - NONE [facility] Dec 30, 2024 01:00 PM AMBULATORY - NONE ADAN Lopez [facility] Active, Pending, and Scheduled Orders This section includes a listing of several types of active, pending, and scheduled orders, including clinic medications orders, diagnostic test orders, procedure orders and consult orders; where the start date of the order is 45 days before the date of the Encounter or 45 days after the date of theEncounter. The data comes from all [place] treatment facilities. Test Date/Time Test Type Test Details Facility Name Jul 29, 2024 12:00 AM Laboratory - Chemi stry Order OCCULT BLOOD FIT X1 SCREEN (MFP ONLY) STOOL FECES SP [facility] Encounter Notes: All associated encounter notes This section contains the clinical notes associated to the Encounter. Date/Time Encounter Note(s) Provider Source Sep 01, 2024 10:32 AM PACT NOTE: LOCAL TITLE: PACT NURSE TELEPHONE NOTE (T) STANDARD TITLE: PACT NOTE DATE OF NOTE: SEP 01, 2024@10:32 ENTRY DATE: SEP 01, 2024@10:32:24 AUTHOR: JAMES LUIS EXP COSIGNER: URGENCY: STATUS: COMPLETED Primary Care FIT testing follow up. Called patient today to follow up on returning stool card test. Unable to reach patient via phone, sending reminder letter out- will monitor chart for results. /duane/ JAMES LUIS CARPET OR RUG LAYER HELPER Signed: 09/01/2024 10:33 JAMES LUIS OC
--- OUTSIDE RECORDS SUMMARY | 2024-12-01 15:17 | XMS_ITS | Encounter Summary ---
Author Name [facility] [place] [facility] [place] [facility] [place] Address [address] [place] [address] Care Team Providers Care Trolley Car Overhauler Name Role Phone CHIDI DESIR Primary Care [...] UMA PRESCRIPT ION GEHA~ Nov 26, 2014 [id number] [phone] DENIZ TOBAR PATIENT CAREMARK PRESCRIPT ION GEHA Sep 13, 2014 [id number] [phone] RAMÓN OROPEZADENIZ PATIENT CAREMARK ([id number]) PRESCRIPT ION GEHA RX Nov 26, 2014 [id number] [phone] DUNGLACY OROPEZADENIZ PATIENT GEHA [facility] BEHAVIORAL HE[facility] MENTAL HEALTH GEHA/ ASA 2021Nov 26, 2021 [id number] [phone] RAMÓN OROPEZADENIZ 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 [employer]ERAL DENTAL INSURANCE GEHA Nov 26, 2017 AA [id number] DENIZ TOBAR PATIENT GEHA-[facility] PREFERRED PROVIDER ORGANIZAT ION (PPO) GEHA- [facility] STAND ANDREW Nov 26, 2023 [id number] DENIZ TOBAR PATIENT [facility] PREFERRED PROVIDER ORGANIZAT ION (PPO) GEHA Nov 26, 2014 [id number] DENIZ TOBAR PATIENT [facility] PREFERRED PROVIDER ORGANIZAT ION (PPO) GEHA Sep 13, 2014 [id number] ALTH [id number] DENIZ TOBAR PATIENT GEHA/ASA PREFERRED PROVIDER ORGANIZAT ION (PPO) STAND ANDREW OPTIO N Nov 26, 2020 [id number] DENIZ TOBAR PATIENT Selected Encounter This section includes the information on record at [place] for the Encounter. Date/Time Encounter Type Encounter Description Reason Provider Source Jul 17, 2024 02:03 PM HC PRO PHONE CALL 5-10 MIN TELEPHONE PRIMARY CARE ICD-10-CM I10 Essential (primary) hypertension [facility] Margarita Encounter Template Text not used by [place] Assessments - Encounter Diagnoses This section includes the primary and secondary diagnoses documented for the Encounter. Date/Time Primary/Secondary Diagnosis Diagnosis Name Provider Source Jul 17, 2024 02:03 PM PRIMARY Essential (primary) hypertension [facility] DAE Plan of Treatment: Future Appointments (+ 6 months) and Future Tests (+/- 45 days) The Plan of Treatment section includes future care activities for the patient from all [place] treatmentfacilities. This section includes future appointments and future orders which are active, pending or scheduled. Future Appointments This section includes appointments that were scheduled to occur 6 months from the date of the Encounter, up to a maximum of 20 appointments. The data comes from all [place] treatment facilities. Appointment Date/Time Appointment Type Appointme nt Facility Name Dec 23, 2024 09:45 AM AMBULATORY - NONE [facility] Dec 30, 2024 01:00 PM AMBULATORY - NONE ADAN Lopez [facility] Active, Pending, and Scheduled Orders This section includes a listing of several types of active, pending, and scheduled orders, including clinic medications orders, diagnostic test orders, procedure orders and consult orders; where the start date of the order is 45 days before the date of the Encounter or 45 days after the date of theEncounter. The data comes from all [place] treatment facilities. Test Date/Time Test Type Test Details Facility Name Jul 03, 2024 12:00 AM Laboratory - Chemi stry Order ENTERIC PANEL STOOL FECES SP ONCE [facility] Jul 03, 2024 12:00 AM Laboratory - Chemi stry Order C DIFF TOXOGENIC PCR STOOL FECES SP ONCE [facility] Jul 29, 2024 12:00 AM Laboratory - Chemi stry Order OCCULT BLOOD FIT X1 SCREEN (MFP ONLY) STOOL FECES SP [facility] Social History: Smoking Status (Most current) and Tobacco Use (All prior to encounter date) This section includes the most current, and the historical, smoking and tobacco- related health factors from the [place] facility where the Encounter took place. Current Smoking Status This section includes the most current smoking, or tobacco-related health factor, from the [place] facility where the Encounter took place. Date/Time Current Smoking Status Comment Facil ity April 01, 2024 02:30 PM VA-TOBACCO NEVER USED [facility] Tobacco Use History This section includes a history of the smoking, or tobacco-related health factors, that were collected on or before the date of the Encounter. The data comes from the [place] facility where the Encounter took place. Date/Time [...] Encounter. 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 Vet saw PCP on 07/03/24 and BP was elevated. PCP advised vet to restart amlodipine. 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 Vet states he never picked up medications- thought it was supposed to be mailed. Vet did not restart amlodipine. 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 Vet states he moved- did not update clinic with new mailing address. Confirmed new address. Discussed with pharmacy. Will mail amlodipine to updated mailing address. Advised to alert pact team once he receives medication, and will f/u with home BP readings once medication has been restarted. CURRENT REGIMEN: AMLODIPINE TAB 5MG TAKE ONE TABLET BY MOUTH EVERY DAY Vet educated on possible side effects of medication- peripheral edema, flushing, reflex tachycardia. Vet notified to contact pact team if he experiences side effects once he receives/starts medications. COMPLIANCE: Vet has not been compliant with medication regimen in the past. Vet stressed on importance of taking medications as prescribed. Vet advised to check BP (twice in the AM, 1 minute apart, before medications, and again before dinner). Vet states he does not drink alcohol/smoke. Vet states he eats well, and works out often. PLAN OF CARE: Take medications once receives in the mail. Check BP as advised. Call pact team with consistently elevated BP readings. Follow low sodium/chol/fat diet. Increase activity as tolerated. Call 911 or go to the nearest ER if vet experiences sob, cp, sudden vision changes, s/s cva. Vet to contact pact team once he receives amlodipine in the mail. Will also set a tickler alert x3 weeks to f/u. LENGTH OF VISIT: /duane/ VANIA Alanis REGISTERED NURSE Signed: 07/17/2024 14:26 08/13/2024 ADDENDUM STATUS: COMPLETED attempted to contact vet to f/u on home BP readings and see if he has been taking amlodipine. no answer. hipaa appropriate vm left with contact information for return call. will call x1 week if vet does not call back. /duane/ VANIA Alanis REGISTERED NURSE Signed: 08/13/2024 15:12 08/22/2024 ADDENDUM STATUS: COMPLETED attempted to contact vet again for f/u on home BP readings. no answer. hipaa appropriate vm left with contact information for return call. /duane/ VANIA Alanis REGISTERED NURSE Signed: 08/22/2024 16:13 [facility]
== END 2024-12-01 15:17 | disposition home or self-care (01) ==
PROVIDERS: PCP Internal Medicine; Visit Provider Physician Assistant Medical
DX: R11.2 Nausea with vomiting, unspecified (principal); R19.7 Diarrhea, unspecified

== ENCOUNTER → 2024-12-01 13:09 | Outpatient (BNVA) | payer OTHER, SELFPAY | PROVIDERS: PCP Internal Medicine; Visit Provider Physician Assistant Medical | DX: R11.2 Nausea with vomiting, unspecified (principal); R19.7 Diarrhea, unspecified | CPT/HCPCS: 99212 ==

== ENCOUNTER 2025-03-13 08:26 | Outpatient (REF) | payer OTHER, SELFPAY ==
--- NOTE | ~2025-03-13 | XR_ITS ---
CLINICAL HISTORY: M79.644 - Pain in right finger(s) 3 view right thumb Comparison: None Findings: No fractures or dislocations. No significant loss of joint space or osteophytes. No erosions. No radiopaque foreign body. IMPRESSION: 1. No acute findings. This document has been electronically signed by: Asif Montez MD on 03/14/2025 09:02:14
--- OUTSIDE RECORDS SUMMARY | 2025-03-13 09:08 | XMS_ITS | Encounter Summary ---
Author Name [facility] [place] Address [address] [place] [address] Care Team Providers Care Curb And Gutter Laborer Name Role Phone CHIDI DESIR Primary Care [...] CAREMARK PRESCRIPT ION GEHA~ Nov 26, 2014 [id number] [phone] DUNGLACY OROPEZADENIZ PATIENT [facility]ARK PRESCRIPT ION GEHA Sep 13, 2014 [id number] [phone] DUNGLACY OROPEZADENIZ PATIENT CAREMARK ([id number]) PRESCRIPT ION GEHA RX Nov 26, 2024 [id number] [phone] DUNGLACY OROPEZADENIZ PATIENT GEHA FEHB DENTAL ONLY DENTAL INSURANCE GEHA DENTA L Nov 26, 2017 AA [id number] RAMÓN OROPEZADENIZ PATIENT [facility] PREFERRED PROVIDER ORGANIZAT ION (PPO) [facility] STAND ANDREW Nov 26, 2024 [id number] [phone] DENIZ TOBAR PATIENT [facility] PREFERRED PROVIDER ORGANIZAT ION (PPO) SHIN PICKETT Nov 26, 2014 [id number] DENIZ TOBAR PATIENT [facility] PREFERRED PROVIDER ORGANIZAT ION (PPO) GEHA Sep 13, 2014 [id number] DENIZ TOBAR PATIENT Selected Encounter This section includes the information on record at [place] for the Encounter. Date/Time Encounter Type Encounter Description Reason Pro vider Source Mar 13, 2025 08:03 AM Outpatient Encounter ADMIN PAT ACTIVTIES (MASNONCT) [...] Appointment Type Appointme nt Facility Name Mar 24, 2025 03:30 PM AMBULATORY - PSYCHIATRY [facility] April 15, 2025 01:00 PM AMBULATORY - MEDICINE [facility] Lab Results: +/- 30 days of the [...] Type Comment Mar 04, 2025 10:14 AM [facility] LIPID PROFILE PLASMA Specimen Type: PLASMA [...] Mar 02, 2025 08:17 AM Reporting Lab: [address] [phone] Performing Lab: [address] [phone] CHOLESTEROL 287 mg/dL H 0-199 LDL CHOLESTEROL 260 mg/dL H 0-99 HDL CHOLESTEROL 14 mg/dL L >40 TRIGLYCERIDE 282 mg/dL H 0-149 Mar 04, 2025 10:14 AM [facility] COMPREHENSIVE METABOLIC PANEL PLASMA S pecimen [...] Mar 02, 2025 08:17 AM Reporting Lab: [address] [phone] Performing Lab: [address] [phone] ALBUMIN 4.5 g/dL 3.5-4.8 ALKALINE PHOSPHATASE 37 [...] (CALCULATED) 111 Mar 04, 2025 10:14 AM [facility] CBC BLOOD Specimen Type: BLOOD No comment entered. Ordering Provider: CHIDI DESIR Report Released Date/Time: Mar 02, 2025 08:17 AM Reporting Lab: [address] [phone] Performing Lab: [address] [address] WBC COUNT 5.2 10*3/uL 3.6-11.0 RBC COUNT [...] fL 7.4-11.4 Mar 04, 2025 10:14 AM [facility] URINALYSIS URINE Specimen Type: URINE No comment entered. Ordering Provider: CHIDI DESIR Report Released Date/Time: Mar 02, 2025 08:17 AM Reporting Lab: [address] [phone] Performing Lab: [address] [phone] SPECIFIC GRAVITY 1.022 1.016-1.022 URINE GLUCOSE Negative mg/dL Negative URINE PROTEIN 20 mg/dL Negative URINE PH 6.5 5.0-8.0 RBC/HPF 2 /[HPF] <=4 NITRITE, URINE Negative Negative ESTERASE(WBC) Negative Negative URINE CLARITY Clear Clear URINE BILIRUBIN Negative mg/dL <=0.4 URINE BLOOD 0.03 mg/dL <0.05 UROBILINOGEN 3 mg/dL H <=1 URINE KETONES 10 mg/dL H <=9 URINE COLOR Yellow [none] Mar 04, 2025 10:14 AM [facility] GGT PLASMA Specimen Type: PLASMA No comment entered. Ordering Provider: CHIDI DESIR Report Released Date/Time: Mar 03, 2025 09:13 AM Reporting Lab: [address] [phone] Performing Lab: [address] [address] GGT 48 U/L 0-54 Encounter Notes: All associated encounter notes This section contains the clinical notes associated to the Encounter. Date/Time Encounter Note(s) Provider Source Mar 13, 2025 08:03 AM LETTERS: LOCAL TITLE: SCHEDULING CONTACT ATTEMPT LETTER STANDARD TITLE: LETTERS DATE OF NOTE: MAR 13, 2025@08:03 ENTRY DATE: MAR 13, 2025@08:03:09 AUTHOR: YAJAIRA QUAN COSIGNER: URGENCY: STATUS: COMPLETED [address] [address] Feb DENIZ LEETSDALETIFFANIE [address] [place] [address] Dear , [facility] a request to schedule you for a Cancel by Clinic appointment. We attempted to contact you via telephone on Feb and we were unable to reach you. This is our 2nd attempt to reach you. It is important that you contact us by March to schedule your appointment. Please call us at [phone] at extension [phone] between the hours of 0800 AM to 1630 PM EST, Sunday through Sunday to schedule your appointment. If you already made an appointment, please disregard this notification. We look forward to your call and thank you for your service. Vinod Colon[address] [address] YAJAIRA QUAN [facility]
--- OUTSIDE RECORDS SUMMARY | 2025-03-13 09:08 | XMS_ITS | Encounter Summary ---
Author Organization [facility] Address [address] [place] [address] Care Team Providers Care Pedicab Driver Name Role Phone Unavailable Primary Care Provider Unavailabl e Encounter Details Date Type Department Care Team (Late st Contact Info) Description 09/07/2015 Orders Only [facility] NEONATAL ICU COORDINATOR [address] [facility] [address] [place] [id number] Provider, [facility] Social History Tobacco Use Types Packs/Day Years [...] of this encounter Results * Due to [place] state law, this organization might not be [...]
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
--- OUTSIDE RECORDS SUMMARY | 2025-03-13 09:08 | XMS_ITS | Clinical Summary ---
Author Organization [facility] Address [address] [place] [address] Care Team Providers Care Distributor Cleaner Name Role Phone Unavailable Primary Care Provider [...] Date of Phone Billing Address Personal/Family [address] [place] [address] [employer]
[2025-03-13 09:51] LABS: MANUAL DIFF FLAG NO
[2025-03-13 09:57] LABS: Appearance Urine Clear; Color Urine Yellow; Glucose Urine UA Negative (Negative); Leukocyte Esterase Urine Negative (Negative); Nitrite Urine Negative (Negative); PH 5.5 (5.0-9.0); Specific Gravity - Urine 1.025 (1.005-1.025); UMIC TRIGGER UACC YES; Urine Blood Small (1+) (Negative); Urine Ketones Negative (Negative); Urine Protein Negative (Neg-Trace)
[2025-03-13 10:07] LABS: Basophils Percent Auto 0.5 % (0-2); Eosinophils Absolute Auto 0.3 X10*3/uL (0.0-0.4); Eosinophils Percent Auto 4.2 % (0-4); Hematocrit 35.5 % (37.0-47.0); Hemoglobin 11.8 g/dl (12.0-16.0); Imm Gran Abs Auto 0.02 X10*3/uL (0.00-0.03); Imm Gran Pct Auto 0.3 % (0.0-0.4); Lymphocytes Absolute Auto 2.1 X10*3/uL (1.2-4.9); Lymphocytes Percent Auto 36.1 % (20-40); Mean Corpuscular HGB Conc 33.2 g/dl (31.0-35.0); Mean Corpuscular Hemoglobin 30.1 pg (27.0-33.0); Mean Corpuscular Volume 90.6 fL (80.0-98.0); Mean Platelet Volume 10.2 fL (9.4-12.3); Monocytes Absolute Auto 0.3 X10*3/uL (0.1-1.2); Monocytes Percent Auto 5.7 % (2-11); Neutrophils Absolute Auto 3.2 x10*3/uL (2.0-8.3); Neutrophils Percent Auto 53.2 % (45-73); Platelet Count 327 X10*3/uL (160-400); Red Blood Count 3.92 X10*6/uL (4.20-5.50); White Blood Count 5.9 X10*3/uL (4.8-10.8)
[2025-03-13 10:12] LABS: Bacteria Urine Trace (None Seen); Hyaline Casts Urine 0-2 /LPF (0-2); RBC Urine 0-2 /HPF (0-2); WBC Urine 0-5 /HPF (0-5)
[2025-03-13 10:45] LABS: Alanine Aminotransferase 14 U/L (0-31); Albumin Level 4.1 g/dL (3.5-5.0); Anion Gap 11 (12-20); Aspartate Amino Transferase 20 U/L (5-31); Bilirubin Total 0.3 mg/dL (0.0-1.0); Blood Urea Nitrogen 15 mg/dL (9-16); Carbon Dioxide 23 mmol/L (22-29); Chloride 110 mmol/L (96-108); Cholesterol 217 mg/dL (<200); Estimated Glomerular Filt Rate > 60; Ferritin 34 ng/mL (10-122); Glucose Fasting 109 mg/dL (60-99); HDL Cholesterol 47 mg/dL (>40); LDL Cholesterol Calculated 150 mg/dL (<100); Potassium 3.9 mmol/L (3.3-5.1); Sodium 140 mmol/L (135-145); Total Protein 6.9 g/dL (6.5-8.0); Triglycerides 103 mg/dL (<150)
[2025-03-13 10:46] LABS: Vitamin B12 435 pg/mL (200-900)
[2025-03-13 19:46] LABS: Alkaline Phosphatase 64 U/L (39-117)
[2025-03-20 09:54] LABS: Vitamin D 25-OH, D2 <4 ng/mL; Vitamin D 25-OH, D3 7 ng/mL; Vitamin D 25-OH, Total 7 ng/mL (30-100)
== END 2025-03-13 08:27 | disposition home or self-care (01) ==
LOC: HO.HMGCX 08:26
PROVIDERS: PCP Internal Medicine; Visit Provider Internal Medicine
DX: M79.644 Pain in right finger(s) (principal); R42 Dizziness and giddiness; D50.9 Iron deficiency anemia, unspecified; E53.8 Deficiency of other specified B group vitamins; E66.09 Other obesity due to excess calories; Z68.36 Body mass index [BMI] 36.0-36.9, adult
CPT/HCPCS: 36415; 73140; 80053; 80061; 81001; 82306; 82607; 82728; 84443; 85025; 99212

== ENCOUNTER 2025-03-13 08:26 | Outpatient (AMB) | payer OTHER, SELFPAY ==
[2025-03-13 08:26] VITALS: BP 112/74; PULSE 74; O2SAT 97; BMI 36.1
--- NOTE | 2025-03-13 08:26 | MHC.PC.OV ---
Vital Signs 03/13/25 08:26 Height 5 ft 5 in Weight 217 lb BMI 36.1 BP 112/74 Blood Pressure Location Rt brachial Position Sitting Pulse 74 Pulse Source Pulse Oximeter Pulse Oximetry (%) 97 Oxygen Delivery Method Room Air Intake Visit Reasons: concern with R thumb Allergies No Known Allergies Allergy (Verified 03/13/25 08:29) adhesive Allergy (Unknown, Uncoded 03/13/25 08:29) rash Medication List - Last Reconciled 03/13/25 by Zander Richard MD Tobacco use date assessed: 03/13/25 Dental Screening Dental Screen Date: 03/13/25 Did you have a dental visit in the last 12 months?: Yes Did you have a dental problem in the last 6 months where you did not have access to dental care?: No Was dental information given to patient?: Patient has dentist HPI concern with R thumb HPI Details History - The patient is a 39-year-old female presenting with a request for an obstetrics and gynecology referral. She expressed that it has been years since her last visit and requires a referral to make an appointment. - The patient reports persistent right thumb pain for approximately three to four months. She describes the pain as severe initially, with difficulty moving the thumb, and notes that it worsened upon pressing. She started massaging the thumb, which initially was painful but appeared to improve after more aggressive manipulation. Currently, the thumb symptoms have lessened but are not completely resolved. - The patient also reports experiencing a sudden onset of dizziness, described as wooziness and imbalance, lasting an entire day two weeks ago. The dizziness was accompanied by elevated blood pressure (approx. 130/90) and low blood sugar, though exact glucose levels were not recalled. The dizziness diminished by night and briefly recurred twice in the following days for about 5 to 10 minutes each time, once during a shower. She denies any current dizziness. Problem List - Right Thumb Pain - Positional Vertigo - Anemia seen on last set of labs - due for OBGYN visit Diagnostic results - Labs: Patient noted to be slightly anemic based on prior laboratory results. [place] of Care - Referral to Obstetrics and Gynecology for annual evaluation and supportive continuity of care. Patient Instructions - Continue monitoring the right thumb and use gentle massage if helpful. - Follow up with x-ray for further evaluation of the thumb. - Keep track of any dizziness episodes, noting their frequency, duration, and any associated activities or positions. - Book an upcoming appointment for a comprehensive physical exam. - lab order placed to be done today as patient is fasting Review of Systems General: No fever no chills neurological: No headaches ear nose throat: No sore throat no hearing difficulty no ear pain cardiovascular: No syncope, no chest pain, no palpitations gastrointestinal: No nausea vomiting or diarrhea endocrine: No polyuria polydipsia no heat intolerance genitourinary: No dysuria skin: No new complaints Physical Exam general: No acute distress HEENT: No acute findings, ear exam benign bilateral neck: Supple respiratory system: Able to talk in full sentences, no audible wheeze no stridor cardiovascular: S1-S2 RRR gastrointestinal: No pain extremities: Right thumb pain, tenderness on pressure distal phalanx, no swelling, no discoloration TIMBER SIZER: Alert awake oriented x3 motor sensory intact, balance intact gait intact skin: Normal turgor PFSH Medical History HAWA positive Migraine Asthma Family History Father Hypertension Mother Asthma Maternal Grandfather Diabetes Paternal Grandmother CVD (cardiovascular disease) Paternal Grandfather Diabetes Social History Housing: House Patient Tobacco Use Status: Never used Tobacco e-Cigarette/Vaping Use: Never Used Current occupational status: employed Cognitive needs: No Hearing needs: No Vision needs: No Questionnaire Thrive Questionnaire Date Thrive assessed: 02/28/22 MARLON-7 AMB Questionnaire MARLON-7 Date AMRLON - 7 assessed: 02/28/22 Source: Developed by Drs. Keven Akins, Stacy Bull, Antonio Allen and colleagues, with an educational petros from [employer]. Physical exam (Primary Care) Vital Signs: Last Vital Signs Pulse 74 03/13/25 08:26 BP 112/74 03/13/25 08:26 Pulse Ox 97 03/13/25 08:26 Oxygen Delivery Method Room Air 03/13/25 08:26 BMI result Body Mass Index 36.1 Tobacco/Smoking Status: Tobacco use Status Tobacco use date assessed 03/13/25 03/13/25 08:30 Patient Tobacco Use Status Never used Tobacco 03/13/25 08:30 e-Cigarette/Vaping Use Never Used 03/13/25 08:30 Thrive Assessment: Date of Thrive Assessment Date Thrive assessed 02/28/22 03/13/25 08:30 Coding Level of Care Code Est Pt Level 4 (49975) Diagnoses Pain of right thumb M79.644 Dizziness R42 Microcytic anemia D50.9 B12 deficiency E53.8 Class 2 obesity due to excess calories without serious comorbidity with body mass index (BMI) of 36.0 to 36.9 in adult E66.812; E66.09; Z68.36 Obesity classification: adult class 2 (BMI 35 - 39.9) Serious obesity comorbidity presence: without serious comorbidity Body mass index: BMI 36.0-36.9 Assessment & Plan Assessment & Plan (1) Pain of right thumb: Code(s): M79.644 - Pain in right finger(s) Category: Medical (2) Dizziness: Code(s): R42 - Dizziness and giddiness Category: Medical (3) Microcytic anemia: Code(s): D50.9 - Iron deficiency anemia, unspecified Category: Medical (4) B12 deficiency: Code(s): E53.8 - Deficiency of other specified B group vitamins Category: Medical (5) Obesity due to excess calories: Code(s): E66.09 - Other obesity due to excess calories Category: Medical Qualifiers: Obesity classification: adult class 2 (BMI 35 - 39.9) Serious obesity comorbidity presence: without serious comorbidity Body mass index: BMI 36.0-36.9 Qualified Code(s): E66.812 - Obesity, class 2; E66.09 - Other obesity due to excess calories; Z68.36 - Body mass index [BMI] 36.0-36.9, adult Plan History - The patient is a 39-year-old female presenting with a request for an obstetrics and gynecology referral. She expressed that it has been years since her last visit and requires a referral to make an appointment. - The patient reports persistent right thumb pain for approximately three to four months. She describes the pain as severe initially, with difficulty moving the thumb, and notes that it worsened upon pressing. She started massaging the thumb, which initially was painful but appeared to improve after more aggressive manipulation. Currently, the thumb symptoms have lessened but are not completely resolved. - The patient also reports experiencing a sudden onset of dizziness, described as wooziness and imbalance, lasting an entire day two weeks ago. The dizziness was accompanied by elevated blood pressure (approx. 130/90) and low blood sugar, though exact glucose levels were not recalled. The dizziness diminished by night and briefly recurred twice in the following days for about 5 to 10 minutes each time, once during a shower. She denies any current dizziness. Problem List - Right Thumb Pain - Positional Vertigo - Anemia seen on last set of labs - due for OBGYN visit Diagnostic results - Labs: Patient noted to be slightly anemic based on prior laboratory results. [place] of Care - Referral to Obstetrics and Gynecology for annual evaluation and supportive continuity of care. Patient Instructions - Continue monitoring the right thumb and use gentle massage if helpful. - Follow up with x-ray for further evaluation of the thumb. - Keep track of any dizziness episodes, noting their frequency, duration, and any associated activities or positions. - Book an upcoming appointment for a comprehensive physical exam. - lab order placed to be done today as patient is fasting Orders: Orders Complete Blood Count Auto Diff Today D50.9 - Iron deficiency anemia, unspecified, E53.8 - Deficiency of other specified B group vitamins, E66.09 - Other obesity due to excess calories, R42 - Dizziness and giddiness Comprehensive [place]. Panel Fast Today D50.9 - Iron deficiency anemia, unspecified, E53.8 - Deficiency of other specified B group vitamins, E66.09 - Other obesity due to excess calories, R42 - Dizziness and giddiness Ferritin Today D50.9 - Iron deficiency anemia, unspecified, E53.8 - Deficiency of other specified B group vitamins, E66.09 - Other obesity due to excess calories, R42 - Dizziness and giddiness TSH reflex Free T4 Today D50.9 - Iron deficiency anemia, unspecified, E53.8 - Deficiency of other specified B group vitamins, E66.09 - Other obesity due to excess calories, R42 - Dizziness and giddiness UA CC w/rflx Micro + Cult Today D50.9 - Iron deficiency anemia, unspecified, E53.8 - Deficiency of other specified B group vitamins, E66.09 - Other obesity due to excess calories, R42 - Dizziness and giddiness XR finger RT min 2V Today M79.644 - Pain in right finger(s) Lipid Panel Today D50.9 - Iron deficiency anemia, unspecified, E53.8 - Deficiency of other specified B group vitamins, E66.09 - Other obesity due to excess calories, R42 - Dizziness and giddiness Vitamin D 25-OH (D2 and D3) Today D50.9 - Iron deficiency anemia, unspecified, E53.8 - Deficiency of other specified B group vitamins, E66.09 - Other obesity due to excess calories, R42 - Dizziness and giddiness Vitamin B12 Today D50.9 - Iron deficiency anemia, unspecified, E53.8 - Deficiency of other specified B group vitamins, E66.09 - Other obesity due to excess calories, R42 - Dizziness and giddiness Referrals [facility] Referral Z01.419 - Encounter for gynecological examination (general) (routine) without abnormal findings
--- OUTSIDE RECORDS SUMMARY | 2025-03-13 08:47 | XMS_ITS | Encounter Summary ---
Author Organization [facility] Address [address] [place] [address] Care Team Providers Care Slitting Machine Feeder Name Role Phone Unavailable Primary Care Provider Unavailabl e Encounter Details Date Type Department Care Team (Late st Contact Info) Description 09/07/2015 Orders Only [facility] [employer] [address] [facility] [address] [place] [id number] Provider, Rust Social History Tobacco Use Types Packs/Day Years Used Date Smoking Tobacco: Never Assessed Comments Unknown Sex and Gender Information Value Date Recorded Sex Assigned at Not on file Legal Sex Female 7:28 AM EDT Gender Identity Not on file Sexual Orientation Not on file documented as of this encounter Plan of Treatment Not on file documented as of this encounter Results * Due to [place] state law, this organization might not be sharing negative HIV tests. * US TRANSVAGINAL (FOR IVF USE ONLY)FC (09/07/2015 8:41 AM EDT) Narrative Celsa Escoto Tech - 09/07/2015 8:42 AM EDT Study performed for the acquisition of images only. ??No professional Interpretation required. Procedure Note Celsa Escoto Tech - 09/07/2015 Study performed for the acquisition of images only. No professionalInterpretation required. us Repsc Provider IMG US OBGYN ORDERABLES Final Re sult documented in this encounter Visit Diagnoses Diagnosis Infertility, female- Primary Female infertility of unspecified origin Infertility, female Female infertility of unspecified origin documented in this encounter
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
--- OUTSIDE RECORDS SUMMARY | 2025-03-13 08:47 | XMS_ITS | Clinical Summary ---
Author Organization [facility] Address [address] [place] [address] Care Team Providers Care Manager Cost Name Role Phone Unavailable Primary Care Provider Unavailabl e Social History Tobacco Use Types Packs/Day Years Used Date Smoking Tobacco: Never Assessed Comments Unknown Sex and Gender Information Value Date Recorded Sex Assigned at Not on file Legal Sex Female 7:28 AM EDT Gender Identity Not on file Sexual Orientation Not on file Plan of Treatment Health Maintenance Due Date Last Done Comments Hepatitis C Screening 1987 Pap Smear 2003 DTaP/Tdap/Td (1 - Tdap) 2005 Hep B (1 of 3 - 19+ 3-dose series) 2006 COVID-19 Vaccine ( - 2023-2 5 season) 2024 Influenza (#1) 2024 Zoster (Shingrix) (1 of 2) 2037 HPV Vaccine Aged Out No longer eligi ble based on patient's age to complete this topic Hep A Aged Out No longer eligi ble based on patient's age to complete this topic Hib Aged Out No longer eligi ble based on patient's age to complete this topic Meningococcal ACWY Aged Out No longer eligible based on patient's age to complete this topic Pneumococcal Aged Out No longer eligi ble based on patient's age to complete this topic Insurance * Guarantor: ALVIN MIXON Account Type Relation to Patient Date of Phone Billing Address Personal/Family [address] [place] [address] [employer]
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
--- OUTSIDE RECORDS SUMMARY | 2025-03-13 08:47 | XMS_ITS | Encounter Summary ---
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 Name Role Phone CHIDI DESIR Primary Care [...] CAREMARK PRESCRIPT ION GEHA~ Nov 26, 2014 [id number] [phone] DUNGLACY OROPEZADENIZ PATIENT [facility]EMARK PRESCRIPT ION GEHA Sep 13, 2014 [id number] [phone] DUNGLACY OROPEZADENIZ PATIENT CAREMARK ([id number]) PRESCRIPT ION GEHA RX Nov 26, 2024 [id number] [phone] RAMÓN OROPEZADENIZ PATIENT GEHA FEHB DENTAL ONLY DENTAL INSURANCE GEHA DENTA L Nov 26, 2017 [id number] RAMÓN OROPEZADENIZ PATIENT [facility] PREFERRED PROVIDER ORGANIZAT ION (PPO) GEHA- [facility] STAND ANDREW Nov 26, 2024 [id number] [phone] DENIZ TOBAR PATIENT [facility] PREFERRED PROVIDER ORGANIZAT ION (PPO) SHIN PICKETT Nov 26, 2014 [id number] DENIZ TOBAR PATIENT [facility] PREFERRED PROVIDER ORGANIZAT ION (PPO) GEHA Sep 13, 2014 [id number] [phone] DENIZ TOBAR PATIENT Selected Encounter This section includes the information on record at [place] for the Encounter. Date/Time Encounter Type Encounter Description Reason Provider Source April 02, 2024 11:00 AM OFFICE O/P EST LOW 20 MIN PRIMARY CARE/MEDICINE ICD-10-CM R19.7 Diarrhea, unspecified CHIDI DESIR Margarita Encounter Template Text not used by [place] Assessments - Encounter Diagnoses This section includes the primary and secondary diagnoses documented for the Encounter. Date/Time Primary/Secondary Diagnosis Diagnosis Name Provider Source April 15, 2024 03:42 PM PRIMARY Diarrhea, unspecified CHIDI DESIR CB Plan of Treatment: Future Appointments (+ 6 months) and Future Tests (+/- 45 days) The Plan of Treatment section includes future care activities for the patient from all [place] treatmentfacilities. This section includes future appointments and future orders which are active, pending or scheduled. Future Appointments This section includes appointments that were scheduled to occur 6 months from the date of the Encounter, up to a maximum of 20 appointments. The data comes from all [place] treatment facilities. Appointment Date/Time Appointment Type Appointme nt Facility Name Jul 03, 2024 10:30 AM AMBULATORY - NONE ADAN Lopez [facility] Active, Pending, and Scheduled Orders This section includes a listing of several types of active, pending, and scheduled orders, including clinic medications orders, diagnostic test orders, procedure orders and consult orders; where the start date of the order is 45 days before the date of the Encounter or 45 days after the date of theEncounter. The data comes from all [facility]. Test Date/Time Test Type Test Details Facility Name April 02, 2024 12:00 AM Laboratory - Chemi stry Order C DIFF TOXOGENIC PCR STOOL FECES SP ONCE [facility] April 02, 2024 12:00 AM Laboratory - Chemi stry Order ENTERIC PANEL STOOL FECES SP ONCE [facility] April 02, 2024 12:00 AM Laboratory - Chemi stry Order INR BLUE TOP PL PLASMA SP [facility] Lab Results: +/- 30 days [...] Type Comment April 02, 2024 11:58 AM [facility] TESTOSTERONE,FREE DIRECT SERUM Specimen Type: SERUM No comment entered. Ordering Provider: CHIDI DESIR Report Released Date/Time: April 02, 2024 11:23 AM Reporting Lab: [address] [address] Performing Lab: [place] [address] TESTOSTERONE,FREE DIRECT 31.9 pg/mL H 6.8- 21.5 April 02, 2024 11:58 AM [facility] HEPATITIS B CORE AB TOTAL SERUM Speci men Type: SERUM No comment entered. Ordering Provider: CHIDI DESIR Report Released Date/Time: April 02, 2024 11:25 AM Reporting Lab: [address] [address] Performing Lab: [address] [address] HEPATITIS B CORE AB TOTAL Nonreactive No nreactive April 02, 2024 11:58 AM [facility] HEPATITIS A AB TOTAL SERUM Specimen T ype: SERUM No comment entered. Ordering Provider: CHIDI DESIR Report Released Date/Time: April 02, 2024 11:25 AM Reporting Lab: [address] [address] Performing Lab: [address] [address] HEPATITIS A AB TOTAL REACTIVE Nonreactiv e April 02, 2024 11:58 AM [facility] HEPATITIS B SURF AB SERUM Specimen Ty pe: SERUM No comment entered. Ordering Provider: CHIDI DESIR Report Released Date/Time: April 02, 2024 11:25 AM Reporting Lab: [address] [address] Performing Lab: [address] [address] HEPATITIS B SURF AB <3.1 m[IU]/mL 0-9.99 April 02, 2024 11:58 AM [facility] HEPATITIS B SURFACE AG SERUM Specimen Type: SERUM No comment entered. Ordering Provider: CHIDI DESIR Report Released Date/Time: April 02, 2024 11:25 AM Reporting Lab: [address] [address] Performing Lab: [place] [phone] HEPATITIS B SURFACE AG Nonreactive Nonre active April 02, 2024 11:58 AM [facility] HEPATITIS C ANTIBODY SERUM Specimen T ype: SERUM No comment entered. Ordering Provider: CHIDI DESIR Report Released Date/Time: April 02, 2024 11:25 AM Reporting Lab: [address] [address] Performing Lab: [place] [phone] HEPATITIS C ANTIBODY Nonreactive Nonreac tive April 02, 2024 11:58 AM [facility] HEMOGLOBIN A1C BLOOD Specimen Type: B LOOD [...] April 02, 2024 11:23 AM Reporting Lab: [address] [address] Performing Lab: [address] [address] HEMOGLOBIN A1C 4.6 3.6-5.7 April 02, 2024 11:58 AM [facility] LIPID PROFILE PLASMA Specimen Type: PLASMA Comment: CREATININE eGFR was calculated using the CKD-EPI 2020 equation. TRIGLYCERIDE REF RANGE: NORMAL <150 mg/dL BORDERLINE HIGH: 150-199 TRIGLYCERIDE mg/dL HIGH: 200-499 mg/dL VERY HIGH: >=500 mg/dL Ordering Provider: CHIDI DESIR Report Released Date/Time: April 02, 2024 11:23 AM Reporting Lab: [address] [address] Performing Lab: [address] [address] CHOLESTEROL 255 mg/dL H 135-200 LDL CHOLESTEROL 220.0 mg/dL H 0-110 HDL CHOLESTEROL <20 mg/dL L 40-60 TRIGLYCERIDE 188 mg/dL H 0-149 April 02, 2024 11:58 AM [facility] TSH PLASMA Specimen Type: PLASMA Comment: CREATININE eGFR was calculated using the CKD-EPI 2020 equation. Ordering Provider: CHIDI DESIR Report Released Date/Time: April 02, 2024 11:23 AM Reporting Lab: [address] [address] Performing Lab: [address] [address] TSH 1.437 u[IU]/mL 0.55-4.78 April 02, 2024 11:58 AM [facility] FREE T4 PLASMA Specimen Type: PLASMA Comment: CREATININE eGFR was calculated using the CKD-EPI 2020 equation. Ordering Provider: CHIDI DESIR Report Released Date/Time: April 02, 2024 11:23 AM Reporting Lab: [address] [address] Performing Lab: [address] [address] FREE T4 1.79 ng/dL H 0.89-1.76 April 02, 2024 11:58 AM [facility] TESTOSTERONE SERUM Specimen Type: SERUM No comment entered. Ordering Provider: CHIDI DESIR Report Released Date/Time: April 02, 2024 11:23 AM Reporting Lab: [address] [address] Performing Lab: [address] [address] TESTOSTERONE 486.80 ng/dL April 02, 2024 11:58 AM [facility] URINALYSIS URINE Specimen Type: URINE No comment entered. Ordering Provider: CHIDI DESIR Report Released Date/Time: April 02, 2024 11:23 AM Reporting Lab: [address] [address] Performing Lab: [address] [address] SPECIFIC GRAVITY 1.025 H 1.016-1.022 URINE GLUCOSE [...] COLOR Yellow April 02, 2024 11:58 AM [facility] COMPREHENSIVE METABOLIC PANEL PLASMA S pecimen Type: PLASMA Comment: CREATININE eGFR was calculated using the CKD-EPI 2020 equation. TRIGLYCERIDE REF RANGE: NORMAL <150 mg/dL BORDERLINE HIGH: 150-199 TRIGLYCERIDE mg/dL HIGH: 200-499 mg/dL VERY HIGH: >=500 mg/dL Ordering Provider: CHIDI DESIR Report Released Date/Time: April 02, 2024 11:23 AM Reporting Lab: [address] [address] Performing Lab: [address] [address] ALBUMIN 4.2 g/dL 3.2-4.8 ALKALINE PHOSPHATASE 46 [...] 108 mL/min April 02, 2024 11:58 AM [facility] CBC BLOOD Specimen Type: BLOOD No comment entered. Ordering Provider: CHIDI DESIR Report Released Date/Time: April 02, 2024 11:23 AM Reporting Lab: [facility] [id number] [place] [phone] Performing Lab: [facility] [id number] [place] [phone] WBC COUNT 5.4 10*3/uL 3.6-11.0 RBC COUNT [...] and tobacco- related health factors from the [place] facility where the Encounter took place. Current Smoking Status This section includes the most current smoking, or tobacco-related health factor, from the [place] facility where the Encounter took place. Date/Time Current Smoking Status Comment Suleiman ity April 01, 2024 02:30 PM [facility] Tobacco Use History This section includes a history of the smoking, or tobacco-related health factors, that were collected on or before the date of the Encounter. The data comes from the [place] facility where the Encounter took place. Date/Time [...] In-person Note Emergency contact number obtained/confirmed. 46yo [place] Reason for Visit:seen through triage. 46 year [...] of adult 01/08/2020 DAVID GONZALEZ Anxiety 09/05/2019 FELIX NARVAEZ Depression 09/05/2019 FELIX NARVAEZ Pain in left knee 02/25/2019 CHIDI DESIR Cervical radiculopathy 09/30/2018 CHIDI DESIR Pain in right knee 01/21/2016 MARCELA ASHTON Mild elevation of liver enzymes 08/12/2013 CHELSEADENIZ FOOTE Unspecified Arthropathy of Unspecified Site 08/12/2013 DAMIENDENIZ Low hdl 06/24/2012 DENIZ QUEZADA Pain in joint involving shoulder region 06/24/2012 DENIZ QUEZADA (ICD-9-CM 719.41) Low back pain (SNOMED CT [id number]) 12/21/2022 CHIDI DESIR Borderline Hypertension * (ICD-9-CM [...] complete and accurate and voices understanding. FOLLOW-UP:discussed. [facility] stools for enteric pathogens and c difficle toxin. [facility] cbc,cmp,lipid panel thyroid studies,chronci hepatitis panel. consult gasto. I am the Attending Physician. TOTAL TIME SPENT: Spent 20 minutes in care of this patient today including review of records, exam, and placing orders. /duane/ CHIDI DESIR PHYSICIAN Signed: 04/02/2024 13:15 CHIDI DESIR [facility] April 02, 2024 10:59 AM [facility] NOTE: LOCAL TITLE: OUTPATIENT NURSING INTAKE NOTE (T) STANDARD TITLE: PRIMARY CARE NURSING NOTE DATE OF NOTE: APRIL 02, 2024@10:59 ENTRY DATE: APRIL 02, 2024@10:59:42 AUTHOR: MALLORY BARROS EXP COSIGNER: URGENCY: STATUS: COMPLETED Hemoglobin A1C [...] to patient. Yes Last [facility] MAP ([place] [place]): [facility] 04/01/2024 Personal Health Plan [place] (MAP) my health, my kids [...] PRACTICAL NURSE Signed: 04/02/2024 11:02 MALLORY BARROS [facility]
--- OUTSIDE RECORDS SUMMARY | 2025-03-13 08:47 | XMS_ITS | Continuity of Care Document ---
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 04/03 [facility] Outpatient Encounter [id number] 04/15 [facility] Outpatient Encounter [id number] 04/17 [facility] Outpatient Encounter [id number] 05/30 [facility] OFFICE O/P EST MOD 30 MIN [id number] Diagnos is: ICD-10- CM I10 Essenti al (primar y) hyperte nsion KELLEY DESIR A L 07/03 [facility] HC PRO PHONE CALL 5-10 MIN [id number] Diagnos is: ICD-10- CM I10 Essenti al (primar y) hyperte nsion MAIN,HOL LY H 07/17 [facility] Outpatient Encounter [id number] 09/01 [facility] OFFICE O/P NEW HI 60 MIN [id number] Diagnos is: ICD-10- CM F32.9 Major depress bc disorde r, single episode , unspeci MARQUEZ Crabtree 01/09 [facility] Outpatient Encounter [id number] 01/09 [facility] OFF[facility] O/P EST MOD 30 MIN [id number] Diagnos is: ICD-10- CM F32.9 Major depress bc disorde r, single episode , unspeci MARQUEZ Crabtree 02/06 [facility] Outpatient Encounter [id number] 02/09 [facility] En[facility] [id number] 03/13 [facility] Social History Combined list of available smoking, tobacco, and other social history from Department of Defense and Veterans Affairs facilities. Social History Type Response Date Comment Sourc e Tobacco smoking status DCIS VA-TOBACCO NEVER USED 04/01/2024 [facility] History of tobacco use VA-TOBACCO NEVER USED 12/21/2022 [facility] History of tobacco use OR-TOBACCO FORMER USER 12/08/2021 [facility] History of tobacco use OR-TOBACCO NEVER USED 02/09/2020 [facility] History of tobacco use OR-TOBACCO NEVER USED 02/24/2019 [facility] History of tobacco use LIFETIME NON-USER OF TOBACCO 12/28/2009 [facility] Plan of Care List of future care activities from Department of [facility] Affairs facilities. Additional future care activities may be listed in the Assessment and Plan section. Date/Time Care Activity Care Activity Detail Facili ty 03/24/2025 AMBULATORY - PSYCHIATRY [facility]ATORY [facility]
--- OUTSIDE RECORDS SUMMARY | 2025-03-13 08:47 | XMS_ITS | Encounter Summary ---
Author Name [facility] [place] Address [address] [place] [address] Care Team Providers Care Telecommunication Equipment Repairer Name Role Phone CHIDI DESIR Primary Care [...] CAREMARK PRESCRIPT ION GEHA~ Nov 26, 2014 [id number] [phone] DUNGLACY OROPEZADENIZ PATIENT [facility] PRESCRIPT ION GEHA Sep 13, 2014 [id number] [phone] DUNGLACY OROPEZADENIZ PATIENT [facility]ARK ([id number]) PRESCRIPT ION GEHA RX Nov 26, 2024 [id number] [phone] DUNGLACY OROPEZADENIZ PATIENT [facility] FEHB DENTAL ONLY DENTAL INSURANCE GEHA DENTA L Nov 26, 2017 AA [id number] RAMÓN OROPEZADENIZ PATIENT [facility] PREFERRED PROVIDER ORGANIZAT ION (PPO) [facility]- [facility] STAND ANDREW Nov 26, 2024 [id number] [phone] DENIZ TOBAR PATIENT [facility] PREFERRED PROVIDER ORGANIZAT ION (PPO) SHIN PIKCETT Nov 26, 2014 [id number] DENIZ TOBAR PATIENT [facility] PREFERRED PROVIDER ORGANIZAT ION (PPO) [facility] Sep 13, 2014 [id number] DENIZ TOBAR PATIENT Selected Encounter This section includes the information on record at [place] for the Encounter. Date/Time Encounter Type Encounter Description Reason Provider Source Jul 03, 2024 10:30 AM OFFICE O/P EST MOD 30 MIN PRIMARY CARE/MEDICINE ICD-10-CM I10 Essential (primary) hypertension THANG,CHIDI L IHE Encounter Template Text not used by [place] Assessments - Encounter Diagnoses This section includes the primary and secondary diagnoses documented for the Encounter. Date/Time Primary/Secondary Diagnosis Diagnosis Name Provider Source Jul 03, 2024 11:35 AM PRIMARY Essential (primary) hypertension THANG,CHIDI L [facility] Jul 03, 2024 11:35 AM SECONDARY Diarrhea, unspecified THANG,CHIDI L [facility] Jul 03, 2024 11:35 AM SECONDARY Low back pain, unspecified THANG,CHIDI L [facility] Jul 03, 2024 11:35 AM SECONDARY Male erectile dysfunction, unspecified THANG,CHIDI L [facility] Plan of Treatment: Future Appointments (+ 6 months) and Future Tests (+/- 45 days) The Plan of Treatment section includes future care activities for the patient from all [place] treatmentfacilities. This section includes future appointments and future orders which are active, pending or scheduled. Active, Pending, and Scheduled Orders This section includes a listing of several types of active, pending, and scheduled orders, including clinic medications orders, diagnostic test orders, procedure orders and consult orders; where the start date of the order is 45 days before the date of the Encounter or 45 days after the date of theEncounter. The data comes from all [place] treatment facilities. Test Date/Time Test Type Test Details Facility Name Jul 03, 2024 12:00 AM Laboratory - Chemi stry Order ENTERIC PANEL STOOL FECES SP ONCE [facility] Jul 03, 2024 12:00 AM Laboratory - Chemi stry Order C DIFF TOXOGENIC PCR STOOL FECES SP ONCE [facility] Jul 29, 2024 12:00 AM Laboratory - Chemi stry Order OCCULT BLOOD FIT X1 SCREEN (MFP ONLY) STOOL FECES SP [facility] Social History: Smoking Status (Most current) and Tobacco Use (All prior to encounter date) This section includes the most current, and the historical, smoking and tobacco- related health factors from the [place] facility where the Encounter took place. Current Smoking Status This section includes the most current smoking, or tobacco-related health factor, from the [place] facility where the Encounter took place. Date/Time Current Smoking Status Comment Facil ity April 01, 2024 02:30 PM VA-TOBACCO NEVER USED [facility] Tobacco Use History This section includes a history of the smoking, or tobacco-related health factors, that were collected on or before the date of the Encounter. The data comes from the [place] facility where the Encounter took place. Date/Time [...] DATE: JUL 04, 2024@06:13:07 DICTATED BY: CHIDI DESIR COSIGNER: URGENCY: STATUS: COMPLETED If the patient [...] provided to the patient is available in [employer]. SCANNED DOCUMENT SIGNATURE NOT REQUIRED Electronically Filed: 07/04/2024 by: CHIDI KNIGHT [facility] Jul 03, 2024 11:21 AM ADDENDUM: LOCAL TITLE: Addendum STANDARD TITLE: ADDENDUM DATE OF NOTE: JUL 03, 2024@11:21:20 ENTRY DATE: JUL 03, 2024@11:21:21 AUTHOR: MALLORY BARROS EXP COSIGNER: URGENCY: STATUS: COMPLETED Veterans pressures elevated times [...] and to make sure vet knew to pharmacy picking technician from the pharmacy after intake-vet stated understanding. [...] patient. No/patient declined Last [facility] MAP ([place] [place] [place]): 04/01/2024 Personal Health Plan [place], [place] (MAP) my health, my kids [...] (ICD-9-CM 719.41) Low back pain (SNOMED CT [id number]) 12/21/2022 CHIDI DESIR Borderline Hypertension * (ICD-9-CM [...] placing orders. /duane/ CHIDI DESIR PHYSICIAN Signed: 07/03/2024 11:36 Receipt Acknowledged By: 07/03/2024 13:17 /es/ VANIA Alanis REGISTERED NURSE 07/03/2024 ADDENDUM STATUS: COMPLETED Clinical Reminders Activity HTN Assess for Elevated BP>=140/90: The patient's medication regimen was adjusted to improve blood pressure control. Comment: amlodipine restarted. /duane/ CHIDI DESIR PHYSICIAN Signed: 07/03/2024 11:37 CHIDI DESIR [facility] Jul 03, 2024 10:42 AM PRIMARY [...] No/patient declined Last Whole Health MAP ('s [place], [place], [employer] [place]): 04/01/2024 Personal Health Plan [place], [place] (MAP) my health, my kids [...] and to make sure vet knew to pharmacy picking technician from the pharmacy after intake-vet stated understanding. Informed vet that the RN would be calling to review home BP readinggs-vet stated understanding. /iker BARROS LICENSED PRACTICAL NURSE Signed: 07/03/2024 11:25 Receipt Acknowledged By: 07/03/2024 13:13 /duane/ VANIA Alanis REGISTERED NURSE 07/03/2024 ADDENDUM STATUS: COMPLETED will contact vet x2 week for home BP readings /es/ VANIA Alanis REGISTERED NURSE Signed: 07/03/2024 13:17 [facility]
== END 2025-03-13 09:14 | disposition home or self-care (01) ==
LOC: HO.HMCC 08:26
PROVIDERS: PCP Internal Medicine; Visit Provider Internal Medicine
DX: M79.644 Pain in right finger(s) (principal); R42 Dizziness and giddiness; D50.9 Iron deficiency anemia, unspecified; E53.8 Deficiency of other specified B group vitamins; E66.812 Obesity, class 2; E66.09 Other obesity due to excess calories; Z68.36 Body mass index [BMI] 36.0-36.9, adult

== ENCOUNTER → 2025-03-13 08:47 | Outpatient (BNV) | payer OTHER, SELFPAY | PROVIDERS: PCP Internal Medicine; Visit Provider Specialist | DX: M79.644 Pain in right finger(s) (principal) | CPT/HCPCS: 73140 ==

== ENCOUNTER 2025-03-20 09:01 | Outpatient (AMB) | payer OTHER, SELFPAY ==
--- NOTE | 2025-03-20 09:04 | MHC.PC.OV ---
Vital Signs 03/20/25 09:05 Height 5 ft 5 in Weight 218 lb 6 oz BMI 36.3 BP 128/74 Blood Pressure Location Rt brachial Position Sitting Respiration 16 Pulse 86 Pulse Source Pulse Oximeter Temp 98.2 F Temp Source Oral Pulse Oximetry (%) 97 Oxygen Delivery Method Room Air Intake Visit Reasons: PE Accompanied by: Spouse Allergies No Known Allergies Allergy (Verified 03/20/25 09:07) adhesive Allergy (Unknown, Uncoded 03/20/25 09:07) rash Medication List - Last Reconciled 03/20/25 by Zander Richard MD No Known Home Meds Tobacco use date assessed: 03/13/25 Dental Screening Dental Screen Date: 03/13/25 Did you have a dental visit in the last 12 months?: No Did you have a dental problem in the last 6 months where you did not have access to dental care?: No Was dental information given to patient?: Patient has dentist HPI PE HPI Details Physical exam appointment - The patient is a 39-year-old female presenting with dizziness and passing out episodes. - The dizziness has been described as on and off and more frequent throughout the days lately. The duration of dizziness episodes has decreased from the initial occurrence. There are moments when she feels dizzy while performing activities. - She describes instances where she just passes out or falls asleep without warning, and wakes up without realizing she lost consciousness. These episodes typically occur after meals. - These symptoms have been ongoing for about a year. No family history of epilepsy was reported by the patient, but a paternal aunt has epilepsy. - Denies feeling tired or any premonitory sensation before passing out. - History of passing out was noted especially after consuming foods, which might suggest issues with blood sugar regulation related to her known prediabetes. - Reports her asthma, which had been under control, has worsened recently, particularly after engaging in activities like cleaning, possibly exacerbated by allergic reactions. Health Maintenance - Discussed need for weight management and lifestyle modifications due to obesity with a BMI of 36.3. [place] weight should be 140 lbs. - Blood sugar monitoring and dietary changes recommended due to prediabetes status. Advised to stay away from sweets and high carbohydrate foods. - Statins or other lipid-lowering therapies were not discussed, but hyperlipidemia was noted with an LDL of 150 mg/dL, suggested dietary changes. - neurology referral for further evaluation of seizure-like episodes. Placed - Advised follow-up with the [employer] [facility]ge[facility] instructor for routine breast examination. - Discussed need for potentially using antihistamines regularly to manage allergic symptoms. Medications - Multivitamin with iron for potential iron deficiency anemia Employment - Currently not driving Diagnostic results - Labs: Slight anemia with hemoglobin at 11.8 g/dL, prediabetes status confirmed, LDL cholesterol at 150 mg/dL - Electrolytes and kidney functions within normal limits - Liver enzymes normal - Vitamin B12 normal. Vitamin D pending. - Thyroid functions normal. Patient Instructions - Call and make an appointment with a neurologist for dizziness and passing out. - Start a daily antihistamine for allergies such as Zyrtec or Claritin. - Obtain an inhaler for asthma management. - Follow a healthy diet and exercise regimen to manage weight and prevent the development of diabetes. - Avoid sweet and high-carbohydrate foods to manage blood sugar levels. - Monitor weight loss and return in four months for follow-up. - Follow up with OBGYN as instructed for routine examinations. Review of Systems - General: No fever no chills - Neurological: No headaches - Ear nose throat: No sore throat no hearing difficulty no ear pain - Cardiovascular: no chest pain, no palpitations - Gastrointestinal: No nausea vomiting or diarrhea - Endocrine: No polyuria polydipsia no heat intolerance - Genitourinary: No dysuria - Skin: No new complaints Physical Exam General: Cooperative, healthy appearing, comfortable, no acute distress Orientation: Patient oriented x3 Head: Normal to inspection Ears: Within normal limit visually Nose: Normal external nose present Face and sinus: Normal facial exam Eyes: Appearance normal, extraocular movement intact pupils reactive Neck: Normal visual inspection and supple Respiratory: Normal respiratory effort and able to speak in complete sentences. Clear to auscultation, no stridor Cardiovascular: S1 and S2 RRR Breast exam through OBGYN GI: Normal to inspection. Soft to palpation and nontender Skin: Turgor normal, no acute findings Neuro: Patient oriented x3, motor sensory intact, balance intact, tandem pass Extremities: Normal to inspection, no swelling noted [facility] Medical History [place] positive Migraine Asthma Family History Father Hypertension Mother Asthma Maternal Grandfather Diabetes Paternal Grandmother CVD (cardiovascular disease) Paternal Grandfather Diabetes Social History Housing: House Patient Tobacco Use Status: Never used Tobacco e-Cigarette/Vaping Use: Never Used Current occupational status: employed Cognitive needs: No Hearing needs: No Vision needs: No Questionnaire PHQ-9 Over the last 2 weeks, how often have you been bothered by any of the following problems? 1. Little interest or pleasure in doing things: not at all 2. Feeling down, depressed, or hopeless: not at all 3. Trouble falling or staying asleep, or sleeping too much: several days 4. Feeling tired or having little energy: several days 5. Poor appetite or overeating: several days 6. Feeling bad about yourself - or that you are a failure or have let yourself or your family down: not at all 7. Trouble concentrating on things, such as reading the newspaper or watching television: not at all 8. Moving or speaking so slowly that other people could have noticed. Or the opposite - being so fidgety or restless that you have been moving around a lot more than usual: not at all 9. Thoughts that you would be better off or of hurting yourself in some way: not at all Total score: 3 Depression Screening Interpretation: Negative Depression Screening Done: Yes 47930 - PHQ-9 Billing: Yes Source: Developed by Drs. Keven Akins, Stacy Bull, Antonio Allen and colleagues, with an educational petros from [employer]. Thrive Questionnaire Date Thrive assessed: 03/20/25 I am a: Patient What is your living situation today?: I have a steady place to live Within the past 12 months, did the food you bought not last and you didn't have the money to get more?: I choose not to answer this question Within the past 12 months, did you worry whether your food would run out before you got money to buy more?: I choose not to answer this question Do you have trouble paying for medicines?: No Do you have trouble getting transportation to medical appointments?: No Do you have trouble paying your heating and electricity bill?: No Do you have trouble taking care of your child, family member or friend?: No Do you have trouble with day-to-day activities such as bathing, preparing meals, shopping, managing finances, etc.?: No Are you currently unemployed and looking for a job?: No Are you interested in more education?: No Please select the resources that you would like help with: None Currently or been in a relationship where the following occur: I choose not to answer THRIVE Score: 0 AUDIT C Alcohol Use Questionnaire (AUDIT-C) 1. How often do you have a drink containing alcohol?: Monthly or less 2. How many drinks containing alcohol do you have on a typical day when you are drinking?: 1 or 2 3. How often do you have six or more drinks on one occasion?: Never Total Score: 1 MARLON-7 AMB Questionnaire MARLON-7 Date MARLON - 7 assessed: 03/20/25 Feeling nervous, anxious, or on edge: 0 = Not at all Not being able to stop or control worryin = Not at all Worrying too much about different things: 0 = Not at all Trouble relaxin = Not at all Being so restless that it is hard to sit still: 0 = Not at all Becoming easily annoyed or irritable: 0 = Not at all Feeling afraid as if something awful might happen: 0 = Not at all Total MARLON-7 score (0-4 normal; 5-9 mild; 10-14 moderate; 15-21 severe): 0 Source: Developed by Drs. Keven Akins, Stacy Bull, Antonio Allen and colleagues, with an educational petros from [employer]. MARLON-7 Assessment Billing MARLON-7 Assessment Tool: MARLON-7 Assessment 45576 Physical exam (Primary Care) Vital Signs: Last Vital Signs Temp 98.2 F 03/20/25 09:05 Pulse 86 03/20/25 09:05 Resp 16 03/20/25 09:05 BP 128/74 03/20/25 09:05 Pulse Ox 97 03/20/25 09:05 Oxygen Delivery Method Room Air 03/20/25 09:05 BMI result Body Mass Index 36.3 Tobacco/Smoking Status: Tobacco use Status Tobacco use date assessed 03/13/25 03/20/25 09:09 Patient Tobacco Use Status Never used Tobacco 03/20/25 09:09 e-Cigarette/Vaping Use Never Used 03/20/25 09:09 PHQ-9: PHQ-9 Score PHQ-9: Total score 3 03/20/25 09:14 Depression Screening Interpretation: Negative Thrive Assessment: Date of Thrive Assessment Date Thrive assessed 03/20/25 03/20/25 09:09 Currently or been in a relationship where the following occur: I choose not to answer Coding Level of Care Code Est Pt Level 4 (33417) Est Pt Prev Care 18-39y(10280) Diagnoses Encounter for general adult medical examination with abnormal findings Z00.01 Dizziness R42 Syncope and collapse R55 Microcytic anemia D50.9 Class 2 obesity due to excess calories without serious comorbidity with body mass index (BMI) of 36.0 to 36.9 in adult E66.812; E66.09; Z68.36 Body mass index: BMI 36.0-36.9 Obesity classification: adult class 2 (BMI 35 - 39.9) Serious obesity comorbidity presence: without serious comorbidity Pre-diabetes R73.03 Mild intermittent extrinsic asthma without complication J45.20 Asthma complication type: uncomplicated Asthma persistence: intermittent Asthma severity: mild Environmental allergies Z91.09 Additional Codes MARLON-7 Assessment Billing - MARLON-7 Assessment Tool: MARLON-7 Assessment 09947 ([id number]) PHQ-9 - 56791 - PHQ-9 Billing: Yes ([id number]) Assessment & Plan Assessment & Plan (1) Encounter for general adult medical examination with abnormal findings: Code(s): Z00.01 - Encounter for general adult medical examination with abnormal findings Category: Medical (2) Dizziness: Code(s): R42 - Dizziness and giddiness Category: Medical (3) Syncope and collapse: Code(s): R55 - Syncope and collapse Category: Medical (4) Microcytic anemia: Code(s): D50.9 - Iron deficiency anemia, unspecified Category: Medical (5) Obesity due to excess calories: Code(s): E66.09 - Other obesity due to excess calories Category: Medical Qualifiers: Body mass index: BMI 36.0-36.9 Obesity classification: adult class 2 (BMI 35 - 39.9) Serious obesity comorbidity presence: without serious comorbidity Qualified Code(s): E66.812 - Obesity, class 2; E66.09 - Other obesity due to excess calories; Z68.36 - Body mass index [BMI] 36.0-36.9, adult (6) Pre-diabetes: Code(s): R73.03 - Prediabetes Category: Medical (7) Allergy-induced asthma: Code(s): J45.909 - Unspecified asthma, uncomplicated Category: Medical Qualifiers: Asthma complication type: uncomplicated Asthma persistence: intermittent Asthma severity: mild Qualified Code(s): J45.20 - Mild intermittent asthma, uncomplicated (8) Environmental allergies: Code(s): Z91.09 - Other allergy status, other than to drugs and biological substances Category: Medical Plan Physical exam appointment - The patient is a 39-year-old female presenting with dizziness and passing out episodes. - The dizziness has been described as on and off and more frequent throughout the days lately. The duration of dizziness episodes has decreased from the initial occurrence. There are moments when she feels dizzy while performing activities. - She describes instances where she just passes out or falls asleep without warning, and wakes up without realizing she lost consciousness. These episodes typically occur after meals. - These symptoms have been ongoing for about a year. No family history of epilepsy was reported by the patient, but a paternal aunt has epilepsy. - Denies feeling tired or any premonitory sensation before passing out. - History of passing out was noted especially after consuming foods, which might suggest issues with blood sugar regulation related to her known prediabetes. - Reports her asthma, which had been under control, has worsened recently, particularly after engaging in activities like cleaning, possibly exacerbated by allergic reactions. Health Maintenance - Discussed need for weight management and lifestyle modifications due to obesity with a BMI of 36.3. [place] weight should be 140 lbs. - Blood sugar monitoring and dietary changes recommended due to prediabetes status. Advised to stay away from sweets and high carbohydrate foods. - Statins or other lipid-lowering therapies were not discussed, but hyperlipidemia was noted with an LDL of 150 mg/dL, suggested dietary changes. - neurology referral for further evaluation of seizure-like episodes. Placed - Advised follow-up with the [employer] [facility] instructor for routine breast examination. - Discussed need for potentially using antihistamines regularly to manage allergic symptoms. Medications - Multivitamin with iron for potential iron deficiency anemia Employment - Currently not driving Diagnostic results - Labs: Slight anemia with hemoglobin at 11.8 g/dL, prediabetes status confirmed, LDL cholesterol at 150 mg/dL - Electrolytes and kidney functions within normal limits - Liver enzymes normal - Vitamin B12 normal. Vitamin D pending. - Thyroid functions normal. Patient Instructions - Call and make an appointment with a neurologist for dizziness and passing out. - Start a daily antihistamine for allergies such as Zyrtec or Claritin. - Obtain an inhaler for asthma management. - Follow a healthy diet and exercise regimen to manage weight and prevent the development of diabetes. - Avoid sweet and high-carbohydrate foods to manage blood sugar levels. - Monitor weight loss and return in four months for follow-up. - Follow up with OBGYN as instructed for routine examinations. Orders: Referrals Neurology Referral R42 - Dizziness and giddiness, R55 - Syncope and collapse Medications: New cetirizine (Zyrtec) 10 mg PO DAILY PRN 90 tabs 0RF allergy symptoms albuterol sulfate 90 mcg/actuation 1 inh inhalation QID PRN 8.5 grams 0RF shortness of breath or wheezing
[2025-03-20 09:05] VITALS: BP 128/74; PULSE 86; RESP 16; TEMP 36.8; O2SAT 97; BMI 36.3
--- OUTSIDE RECORDS SUMMARY | 2025-03-20 09:11 | XMS_ITS | Clinical Summary ---
Author Organization [facility] Address [address] [place] [address] Care Team Providers Care Engineer Second Assistant Name Role Phone Unavailable Primary Care Provider [...] Date of Phone Billing Address Personal/Family [address] [place] [address] [employer]
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
--- OUTSIDE RECORDS SUMMARY | 2025-03-20 09:11 | XMS_ITS | Encounter Summary ---
Author Organization [facility] Address [address] [place] [address] Care Team Providers Care Entry Level Installation Technician Name Role Phone Unavailable Primary Care Provider Unavailabl e Encounter Details Date Type Department Care Team (Late st Contact Info) Description 09/07/2015 Orders Only [facility] [address] [facility] [address] [place] [id number] Provider, [facility] Social History Tobacco Use Types Packs/Day Years [...] of this encounter Results * Due to [place] state law, this organization might not be [...]
== END 2025-03-20 09:32 | disposition home or self-care (01) ==
LOC: HO.HMCC 09:02
PROVIDERS: PCP Internal Medicine; Visit Provider Internal Medicine
DX: Z00.00 Encounter for general adult medical examination without abnormal findings (principal); R42 Dizziness and giddiness; E66.812 Obesity, class 2; Z68.36 Body mass index [BMI] 36.0-36.9, adult; D50.9 Iron deficiency anemia, unspecified; R55 Syncope and collapse; R73.03 Prediabetes; J45.20 Mild intermittent asthma, uncomplicated; Z91.09 Other allergy status, other than to drugs and biological substances

== ENCOUNTER → 2025-03-20 09:01 | Outpatient (BNVA) | payer OTHER, SELFPAY | PROVIDERS: PCP Internal Medicine; Visit Provider Internal Medicine | DX: Z00.01 Encounter for general adult medical examination with abnormal findings (principal); R42 Dizziness and giddiness; R55 Syncope and collapse; D50.9 Iron deficiency anemia, unspecified; E66.812 Obesity, class 2; E66.09 Other obesity due to excess calories; Z68.36 Body mass index [BMI] 36.0-36.9, adult; R73.03 Prediabetes; J45.20 Mild intermittent asthma, uncomplicated; Z91.09 Other allergy status, other than to drugs and biological substances | CPT/HCPCS: 96127; 99212 ==

== ENCOUNTER 2025-07-10 08:52 | Outpatient (REF) | payer OTHER, SELFPAY ==
[2025-07-10 13:22] LABS: MANUAL DIFF FLAG NO
[2025-07-10 13:46] LABS: Hematocrit 37.6 % (37.0-47.0); Hemoglobin 12.4 g/dl (12.0-16.0); Imm Gran Abs Auto 0.01 X10*3/uL (0.00-0.03); Imm Gran Pct Auto 0.2 % (0.0-0.4); Lymphocytes Absolute Auto 1.9 X10*3/uL (1.2-4.9); Mean Corpuscular HGB Conc 33.0 g/dl (31.0-35.0); Mean Corpuscular Hemoglobin 30.2 pg (27.0-33.0); Mean Corpuscular Volume 91.5 fL (80.0-98.0); NRBC Abs Auto 0.000 X10*3/uL (0.0-0.012); NRBC Pct Auto 0.0 /100WBC (0.0-0.2); Platelet Count 299 X10*3/uL (160-400); Red Blood Count 4.11 X10*6/uL (4.20-5.50); White Blood Count 6.1 X10*3/uL (4.8-10.8)
[2025-07-10 13:59] LABS: Alanine Aminotransferase 20 U/L (0-31); Albumin Level 4.6 g/dL (3.5-5.0); Alkaline Phosphatase 62 U/L (39-117); Anion Gap 13 (12-20); Aspartate Amino Transferase 25 U/L (5-31); Blood Urea Nitrogen 14 mg/dL (9-16); Calcium 9.4 mg/dL (8.4-10.2); Carbon Dioxide 25 mmol/L (22-29); Chloride 104 mmol/L (96-108); Estimated Glomerular Filt Rate > 60; Potassium 4.0 mmol/L (3.3-5.1); Sodium 138 mmol/L (135-145); Total Protein 7.4 g/dL (6.5-8.0)
[2025-07-10 14:11] LABS: Vitamin B12 456 pg/mL (200-900)
[2025-07-10 14:18] LABS: Ferritin 32 ng/mL (10-122)
[2025-07-15 16:28] LABS: Vitamin D 25-OH, D2 <4 ng/mL; Vitamin D 25-OH, D3 17 ng/mL; Vitamin D 25-OH, Total 17 ng/mL (30-100)
== END 2025-07-10 08:53 | disposition home or self-care (01) ==
LOC: HO.HMGCLDS 08:52
PROVIDERS: PCP Internal Medicine; Visit Provider Internal Medicine
DX: M79.89 Other specified soft tissue disorders (principal); E53.8 Deficiency of other specified B group vitamins; D50.9 Iron deficiency anemia, unspecified; E66.812 Obesity, class 2; E66.09 Other obesity due to excess calories; Z68.36 Body mass index [BMI] 36.0-36.9, adult; Z71.3 Dietary counseling and surveillance; R73.03 Prediabetes; E55.9 Vitamin D deficiency, unspecified
CPT/HCPCS: 36415; 80053; 82306; 82607; 82728; 83721; 84443; 85025; 99212

== ENCOUNTER 2025-07-10 08:52 | Outpatient (AMB) | payer OTHER, SELFPAY ==
[2025-07-10 08:55] VITALS: BP 120/80; PULSE 80; BMI 36.3
--- NOTE | 2025-07-10 08:55 | A.OFFPC_ITS ---
Vital Signs 07/10/25 08:55 Height 5 ft 5 in Weight 218 lb BMI 36.3 BP 120/80 Blood Pressure Location Lt brachial Position Sitting Pulse 80 Pulse Source Pulse Oximeter Intake Visit Reasons: 4m follow up Allergies No Known Allergies Allergy (Verified 07/10/25 08:58) adhesive Allergy (Unknown, Uncoded 03/20/25 09:07) rash Medication List - Last Reconciled 07/10/25 by Zander Richard MD albuterol sulfate 90 mcg/actuation 1 inh inhalation QID PRN Tobacco use date assessed: 03/13/25 Dental Screening Dental Screen Date: 03/13/25 HPI 4m follow up HPI Details Chief Complaint The patient reports persistent health concerns and seeks follow-up for dizziness, anemia, cholesterol, weight, and vascular leg issues. History The patient is a 40-year-old female presenting with follow-up for persistent health issues. Dizziness: - Experienced dizziness a few times sinc e last visit in February. Much improved from last visit Anemia: - Previously diagnosed with mild anemia with improving hemoglobin (last recorded at 11.8). - No iron supplementation currently bein g taken. - No heavy menstrual cycles or gastroint estinal bleeding reported. - Past surgical history of hemorrhoids w as noted. Dyslipidemia: - Past laboratory results indicated high cholesterol with LDL at 150. - No consistent diet reported; patient h as been on and off dieting. Prediabetes: - Fasting blood sugar previously recorde d at 109. - Ongoing monitoring discussed. Vitamin D Deficiency: - Last vitamin D levels critically low a t 7. - Patient recalls past supplementation c aused dry mouth, but reported improvement when consistently managed in past. Obesity: - Weight fluctuates; last recorded as 21 8 pounds but patient's own scale reads 212 pounds. - Patient described intermittent success ful dietary changes. Venous Insufficiency: - Reports of leg swelling and chronic va ricose vein discomfort. - Previous unsuccessful attempt to manag e edema through non-invasive methods. 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 - Symptoms noted consistent with plantar fasciitis. Medical History: - Anemia - Dyslipidemia - Prediabetes - Vitamin D Deficiency - Obesity Surgical History: - Hemorrhoidectomy many years ago Medications: - Not currently taking any prescription medications or supplements, including Vitamin D or iron. Social History: - On and off attempts at dieting without consistent adherence. - No regular exercise routine implemente d. - Recent travel noted. - Patient expresses frustration with [facility]. Problem List - Dizziness - Anemia - Dyslipidemia - Prediabetes - Vitamin D Deficiency - Obesity - Venous Insufficiency - Plantar Fasciitis Diagnostic results - Labs: Hemoglobin previously recorded a t 11.8 (improving), fasting blood sugar 109, LDL cholesterol 150, Vitamin D level 7.e Assessment and Plan 1. Dizziness - Follow-up lab work will check hemoglob in again. - Consider possible anemia as a contribu ting factor. 2. Anemia - Repeat complete blood count (CBC) toda y to assess current status. - Potential for iron supplementation if microscopic bleeding is suspected to contribute to anemia. 3. Dyslipidemia - Repeat lipids. - Encourage dietary changes to reduce LD L below 130. 4. Prediabetes - Re-evaluate blood sugar levels. - Continue dietary review and possible c alorie restriction. 5. Vitamin D Deficiency - Initiate high-dose Vitamin D supplemen t, 50,000 IU once a week for three months, then transition to 1000 IU daily. 6. Obesity - Check and confirm weight update. - Encourage patient to maintain a reduce d daily caloric intake (between 1200- 1900 as per weight goals). - Suggest enhanced dietary education pos sibly involving a dietitian. 7. Venous Insufficiency - Refer to a vascular specialist for aldair ous insufficiency assessment. 8. Plantar Fasciitis - Recommend anti-inflammatory measures a nd proper footwear with arch support. - Izcq-lfk-ujaeldu analgesics as necessa ry. Patient Instructions - Be sure to attend the lab work today a s instructed. - Start the prescribed Vitamin D supplem entation as discussed. - Keep track of your diet and aim for a caloric intake that aligns with your discussed weight goals. - Wear supportive footwear and consider anti-inflammatory medication for foot pain. - Consider vascular specialist consult f or leg swelling issues. - Return for follow-up phone consultatio n in two weeks for lab results discussion. Review of Systems General: No fever no chills neurological: No headaches ear nose throat: No sore throat no hearing difficulty no ear pain cardiovascular: No syncope, no chest pain, no palpitations gastrointestinal: No nausea vomiting or diarrhea endocrine: No polyuria polydipsia no heat intolerance genitourinary: No dysuria skin: No new complaints Physical Exam general: No acute distress HEENT: No acute findings neck: Supple respiratory system: Able to talk in full sentences, no audible wheeze no stridor cardiovascular: S1-S2 RRR gastrointestinal: No pain extremities: No swelling at that time and no pain over plantar fascia with palpation 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 oriented x3 motor sensory intact skin: Normal turgor PFSH Medical History HAWA positive Migraine Asthma Surgical History No pertinent past surgical history Family History Father Hypertension Mother Asthma Maternal Grandfather Diabetes Paternal Grandmother CVD (cardiovascular disease) Paternal Grandfather Diabetes Social History Housing: House Patient Tobacco Use Status: Never used Tobacco e-Cigarette/Vaping Use: Never Used Current occupational status: employed Cognitive needs: No Hearing needs: No Vision needs: No Questionnaire Thrive Questionnaire Date Thrive assessed: 07/10/25 I am a: Patient What is your living situation today?: I have a steady place to live Within the past 12 months, did the food you bought not last and you didn't have the money to get more?: I choose not to answer this question Within the past 12 months, did you worry whether your food would run out before you got money to buy more?: I choose not to answer this question Do you have trouble paying for medicines?: No Do you have trouble getting transportation to medical appointments?: No Do you have trouble paying your heating and electricity bill?: No Do you have trouble taking care of your child, family member or friend?: No Do you have trouble with day-to-day activities such as bathing, preparing meals, shopping, managing finances, etc.?: No Are you currently unemployed and looking for a job?: Yes Are you interested in more education?: No Please select the resources that you would like help with: None Currently or been in a relationship where the following occur: I choose not to answer THRIVE Score: 0 MARLON-7 AMB Questionnaire MARLON-7 Date MARLON - 7 assessed: 03/20/25 Source: Developed by Drs. Keven Akins, Stacy Bull, Antonio Allen and colleagues, with an educational petros from [employer]. Physical exam (Primary Care) Vital Signs: Last Vital Signs Pulse 80 07/10/25 08:55 BP 120/80 07/10/25 08:55 BMI result Body Mass Index 36.3 Tobacco/Smoking Status: Tobacco use Status Tobacco use date assessed 03/13/25 07/10/25 08:56 Patient Tobacco Use Status Never used Tobacco 07/10/25 08:56 e-Cigarette/Vaping Use Never Used 07/10/25 08:56 Thrive Assessment: Date of Thrive Assessment Date Thrive assessed 07/10/25 07/10/25 08:56 Currently or been in a relationship where the following occur: I choose not to answer Coding Level of Care Code Est Pt Level 5 (69955) Diagnoses Swelling of lower extremity M79.89 Microcytic anemia D50.9 Class 2 obesity due to excess calories without serious comorbidity with body mass index (BMI) of 36.0 to 36.9 in adult E66.812; E66.09; Z68.36 Body mass index: BMI 36.0-36.9 Obesity classification: adult class 2 (BMI 35 - 39.9) Serious obesity comorbidity presence: without serious comorbidity Pre-diabetes R73.03 Vitamin D deficiency E55.9 Time Spent (min) 40 Comment Reviewing chart/labs/lcpk-ed-drmd with the patient that significant other, coordination Assessment & Plan Assessment & Plan (1) Swelling of lower extremity: Code(s): M79.89 - Other specified soft tissue disorders Category: Medical (2) Microcytic anemia: Code(s): D50.9 - Iron deficiency anemia, unspecified Category: Medical (3) Obesity due to excess calories: Code(s): E66.09 - Other obesity due to excess calories Category: Medical Qualifiers: Body mass index: BMI 36.0-36.9 Obesity classification: adult class 2 (BMI 35 - 39.9) Serious obesity comorbidity presence: without serious comorbidity Qualified Code(s): E66.812 - Obesity, class 2; E66.09 - Other obesity due to excess calories; Z68.36 - Body mass index [BMI] 36.0-36.9, adult (4) Pre-diabetes: Code(s): R73.03 - Prediabetes Category: Medical (5) Vitamin D deficiency: Code(s): E55.9 - Vitamin D deficiency, unspecified Category: Medical Plan Chief Complaint The patient reports persistent health concerns and seeks follow-up for dizziness, anemia, cholesterol, weight, and vascular leg issues. Came in with a significant other, all medical problems discussed with patient and significant other History The patient is a 40-year-old female presenting with follow-up for persistent health issues. Dizziness: - Experienced dizziness a few times since last visit in February. Much improved from last visit Anemia: - Previously diagnosed with mild anemia with improving hemoglobin (last recorded at 11.8). - No iron supplementation currently being taken. - No heavy menstrual cycles or gastrointestinal bleeding reported. - Past surgical history of hemorrhoids was noted. Dyslipidemia: - Past laboratory results indicated high cholesterol with LDL at 150. - No consistent diet reported; patient has been on and off dieting. Prediabetes: - Fasting blood sugar previously recorded at 109. - Ongoing monitoring discussed. Vitamin D Deficiency: - Last vitamin D levels critically low at 7. - Patient recalls past supplementation caused dry mouth, but reported improvement when consistently managed in past. Obesity: - Weight fluctuates; last recorded as 218 pounds but patient's own scale reads 212 pounds. - Patient described intermittent successful dietary changes. Venous Insufficiency: - Reports of leg swelling and chronic varicose vein discomfort. - Previous unsuccessful attempt to manage edema through non-invasive methods. 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 - Symptoms noted consistent with plantar fasciitis. Medical History: - Anemia - Dyslipidemia - Prediabetes - Vitamin D Deficiency - Obesity Surgical History: - Hemorrhoidectomy many years ago Medications: - Not currently taking any prescription medications or supplements, including Vitamin D or iron. Social History: - On and off attempts at dieting without consistent adherence. - No regular exercise routine implemented. - Recent travel noted. - Patient expresses frustration with weight management. Problem List - Dizziness - Anemia - Dyslipidemia - Prediabetes - Vitamin D Deficiency - Obesity - Venous Insufficiency - Plantar Fasciitis Diagnostic results - Labs: Hemoglobin previously recorded at 11.8 (improving), fasting blood sugar 109, LDL cholesterol 150, Vitamin D level 7.e Assessment and Plan 1. Dizziness - Follow-up lab work will check hemoglobin again. - Consider possible anemia as a contributing factor. 2. Anemia - Repeat complete blood count (CBC) today to assess current status. - Potential for iron supplementation if microscopic bleeding is suspected to contribute to anemia. 3. Dyslipidemia - Repeat lipids. - Encourage dietary changes to reduce LDL below 130. 4. Prediabetes - Re-evaluate blood sugar levels. - Continue dietary review and possible calorie restriction. 5. Vitamin D Deficiency - Initiate high-dose Vitamin D supplement, 50,000 IU once a week for three months, then transition to 1000 IU daily. 6. Obesity - Check and confirm weight update. - Encourage patient to maintain a reduced daily caloric intake (between 1200- 1900 as per weight goals). - Suggest enhanced dietary education possibly involving a dietitian. 7. Venous Insufficiency - Refer to a vascular specialist for venous insufficiency assessment. 8. Plantar Fasciitis - Recommend anti-inflammatory measures and proper footwear with arch support. - Loap-awl-sievmay analgesics as necessary. Patient Instructions - Be sure to attend the lab work today as instructed. - Start the prescribed Vitamin D supplementation as discussed. - Keep track of your diet and aim for a caloric intake that aligns with your discussed weight goals. - Wear supportive footwear and consider anti-inflammatory medication for foot pain. - Consider vascular specialist consult for leg swelling issues. - Return for follow-up phone consultation in two weeks for lab results discussion. Orders: Orders Complete Blood Count Auto Diff Today D50.9 - Iron deficiency anemia, unspecified, E53.8 - Deficiency of other specified B group vitamins, E66.09 - Other obesity due to excess calories, E66.812 - Obesity, class 2, R73.03 - Prediabetes, Z68.36 - Body mass index [BMI] 36.0-36.9, adult Vitamin B12 Today D50.9 - Iron deficiency anemia, unspecified, E53.8 - Deficiency of other specified B group vitamins, E66.09 - Other obesity due to excess calories, E66.812 - Obesity, class 2, R73.03 - Prediabetes, Z68.36 - Body mass index [BMI] 36.0-36.9, adult TSH reflex Free T4 Today D50.9 - Iron deficiency anemia, unspecified, E53.8 - Deficiency of other specified B group vitamins, E66.09 - Other obesity due to excess calories, E66.812 - Obesity, class 2, R73.03 - Prediabetes, Z68.36 - Body mass index [BMI] 36.0-36.9, adult Ferritin Today D50.9 - Iron deficiency anemia, unspecified, E53.8 - Deficiency of other specified B group vitamins, E66.09 - Other obesity due to excess calories, E66.812 - Obesity, class 2, R73.03 - Prediabetes, Z68.36 - Body mass index [BMI] 36.0-36.9, adult Comprehensive Met. Panel Today D50.9 - Iron deficiency anemia, unspecified, E53.8 - Deficiency of other specified B group vitamins, E66.09 - Other obesity due to excess calories, E66.812 - Obesity, class 2, R73.03 - Prediabetes, Z68.36 - Body mass index [BMI] 36.0-36.9, adult LDL Cholesterol Direct Today D50.9 - Iron deficiency anemia, unspecified, E53.8 - Deficiency of other specified B group vitamins, E66.09 - Other obesity due to excess calories, E66.812 - Obesity, class 2, R73.03 - Prediabetes, Z68.36 - Body mass index [BMI] 36.0-36.9, adult Vitamin D 25-OH (D2 and D3) Today D50.9 - Iron deficiency anemia, unspecified, E53.8 - Deficiency of other specified B group vitamins, E66.09 - Other obesity due to excess calories, E66.812 - Obesity, class 2, R73.03 - Prediabetes, Z68.36 - Body mass index [BMI] 36.0-36.9, adult Referrals Vascular Surgery Referral M79.89 - Other specified soft tissue disorders Medications: New cholecalciferol (vitamin D3) 25 mcg PO DAILY 90 caps 1RF 90 days ergocalciferol (vitamin D2) 1,250 mcg PO QWEEK 13 caps 0RF 90 days
--- OUTSIDE RECORDS SUMMARY | 2025-07-10 09:10 | XMS_ITS | Continuity of Care Document ---
Author Name [facility] Organization [facility] Care Team Providers Care Plant Tech Name Role Phone [facility] Unavailable Unavailable Social History Combined list of available smoking, tobacco, and other social history from Department of Defense and Veterans Affairs facilities. Social History Type Response Date Comment Sourc e This section is an empty social history section. [facility]
--- OUTSIDE RECORDS SUMMARY | 2025-07-10 09:11 | XMS_ITS | Clinical Summary ---
Author Organization [facility] Address [address] [place] [address] Care Team Providers Care Clinical Medical Transcriptionist Name Role Phone Unavailable Primary Care Provider [...] - 2023-2 5 season) 2024 Influenza (#1) 2025 Zoster (Shingrix) (1 of 2) 2037 HPV Vaccine (No Doses Required) Completed Hep A Aged Out No longer eligi [...] Date of Phone Billing Address Personal/Family [address] [place] [address] [employer]
--- OUTSIDE RECORDS SUMMARY | 2025-07-10 09:11 | XMS_ITS | Encounter Summary ---
Author Organization [facility] Address [address] [place] [phone] Phone Care Team Providers Care Trash Hauler Name Role Phone Zander Richard MD Primary Care Provider [phone] Encounter Details Date Type Department Care Team (Late st Contact Info) Description 02/28/2018 Ancillary Orders [facility] [address] [place], [place] [id number] [place] [address] Abi Mcneil MD [address] [place] [address] Infertility [place] [address] [email or web address] Primary female infertility Social History Tobacco Use Types Packs/Day Years Used Date Smoking Tobacco: Never Smokeless Tobacco: Never Alcohol Use Standard Drinks/Week Comments No 0 (1 standard drink = 0.6 oz pur e alcohol) Comments Unknown Sex and Gender Information Value Date Recorded Sex Assigned at Not on file Legal Sex Female 11:48 AM EDT Gender Identity Not on file Sexual Orientation Not on file documented as of this encounter Plan of Treatment Not on file documented as of this encounter Results * US Follicular Monitoring Standard (02/28/2018 8:17 AM EDT) Anatomical Region Laterality Modality Pelvis, Uterus/Adnexa Ultrasound 02/28/2018 Narrative 02/28/2018 8:21 AM EDT TESTS PERFORMED Pelvic Ultrasound Transvaginal (22597) INDICATIONS/REASONS FOR TESTS Infertility For cryo cycle FINDINGS Uterus Endometrium thickness: 11.3 mm multilayered Few punctate echogenicties at the endometrial-myometrial junction IMPRESSION: Endometrial stripe measured for cryo cycle Procedure Note Yoon Martinez MD - 02/28/2018 TESTS PERFORMED Pelvic Ultrasound Transvaginal (20822) INDICATIONS/REASONS FOR TESTS Infertility For cryo cycle FINDINGS Uterus Endometrium thickness: 11.3 mm multilayered Few punctate echogenicties at the endometrial-myometrial junction IMPRESSION: Endometrial stripe measured for cryo cycle us Abi Laina Mcneil MD IMG US PELVIS Final R esult documented in this encounter Visit Diagnoses Diagnosis Primary female infertility Female infertility of unspecified origin Primary female infertility Female infertility of unspecified origin documented in this encounter Additional Health Concerns Assessment Noted Time PHQ-2 Depression Total Score: 0 10/03/20 17 11:42 AM EST documented as of this encounter Care Teams Trash Hauler Relationship Specialty Start Date End Date Zander Richard MD [facility] [place] [address] PCP - General Internal Medicine 10/05/17 documented as of this encounter Additional Source Comments The information contained in this document represents components of the legal health record. It is not the complete legal health record.[facility]
== END 2025-07-10 10:53 | disposition home or self-care (01) ==
LOC: HO.HMCC 08:52
PROVIDERS: PCP Internal Medicine; Visit Provider Internal Medicine
DX: R73.03 Prediabetes (principal); E66.812 Obesity, class 2; E66.09 Other obesity due to excess calories; Z68.36 Body mass index [BMI] 36.0-36.9, adult; M79.89 Other specified soft tissue disorders; D50.9 Iron deficiency anemia, unspecified; E55.9 Vitamin D deficiency, unspecified

== ENCOUNTER 2025-08-18 08:29 | Outpatient (AMB) | payer OTHER, SELFPAY ==
--- NOTE | 2025-08-18 08:38 | A.OFFVIS_ITS ---
Vital Signs 08/18/25 08:40 Height 5 ft 5 in Weight 214 lb BMI 35.6 BP 120/90 H Blood Pressure Location Lt brachial Position Sitting Pulse 74 Pulse Source Pulse Oximeter Pulse Oximetry (%) 97 Oxygen Delivery Method Room Air Intake Visit Reasons: INP - Syncope/Dizziness/Giddiness Guest Service Aide Required: No Accompanied by: Spouse Allergies No Known Allergies Allergy (Verified 08/18/25 08:41) adhesive Allergy (Unknown, Uncoded 03/20/25 09:07) rash Medication List - Last Reconciled 08/18/25 by NANCY Julien albuterol sulfate 90 mcg/actuation 1 inh inhalation QID PRN cholecalciferol (vitamin D3) 25 mcg PO DAILY 90 days ergocalciferol (vitamin D2) 1,250 mcg PO QWEEK 90 days magnesium glycinate 400 mg (4 x 100 mg magnesium) PO BEDTIME 90 days riboflavin (vitamin B2) 400 mg PO DAILY 90 days HPI Comments Details: A 40-year-old female presents for a new patient evaluation of dizziness and pass ing out, however patient would also like to discuss headache and other neurological symptoms. The patient is accompanied by her , Venancio. PMH is notable for: Migraine, vitamin D deficiency, asthma, microcytic anemia, B12 deficiency, HLD, GERD, obesity, back pain, paresthesias, and dizziness. Pt reports episodes of abruptly falling asleep/?passing out ? after eating a heavy meal or a high sugar meal in the evening. 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 Then will wake up startled and confused around 1-3 am, and is not sure what happened. Typically, she gets up and puts her stuff away. Then she goes back to sleep, sometimes tossing and turning for some time. Her reports that he looks over, and she appears to be sleeping. He states that he has not seen signs of shaking, loss of consciousness, or incontinence during these episodes. He also notes that during this time, she was also reporting episodes of internal dizziness, wooziness, instability, and lightheadedness. This would also occur during the shower. She is also prone to foot cramps that move up into her calves, thighs, and abdomen. This is triggered by flexing her feet. The cramps are always triggered by movement. She states that this has not happened in the last month; however, previously, it was happening more regularly, about 3-4 times every 2 weeks. Her sleep pattern was 1-2 am, and she woke up around 7:10 am. She notes that over the last month, she has been trying to limit the amount of work she brings home and maintain a more regular bedtime. Now, bedtime is 11 pm- 12 am, and wake-up time is 6:20 am?voids about once a night. She is not currently taking her vitamin D supplement, as previous OTC vitamin D supplements caused dry mouth. PMH and ROS are also notable for: Abdominal bloating Neck pain, joint pain Numbness, tingling Fatigue Sleep difficulties Left eye twitches all the time. She passed out about 13 years ago when visiting someone in the hospital at 4 am, after working a long shift. Prone to lightheadedness/pre-syncope when seeing blood, raw chicken, or certain smells. Pertinent denials include: Known history of seizure, head injury. Lifestyle considerations * Typical nutrition intake: Occasionally eats breakfast or lunch, but if she does, it is something small. * Typical fluid intake per day: She also does not drink a lot of fluid- hard to use the bathroom at work. * Caffeine use: 4 cups per week * Sleep routine: Usual bedtime: 11 p.m.- 12 a.m. and wake-up time: 6:20 a.m. 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 However recently had a new onset left facial headache. * Age/time of onset: elementary school age * Preceding causes: denies * Previous work-up: maybe as a child * Previous neurological care: maybe at 12 years old * Family history of headache: mother and sister Typical migraine headache characteristics * Prodrome symptoms: has a sensation that a migraine will come * Aura: denies * Pain intensity: severe * Location, quality, characteristics: typically eyes and holocranial throbbing pain * Associated symptoms: photophobia, phonophobia, osmophobia, allodynia, nausea, vomiting, cognitive difficulties, activity intolerance, * Atypical associated symptoms: left lip numb and tingling or unilateral facial w/wo headache * Postdrome: unsure * Aggravating factors during this headache: activity * Triggers that provoke this headache: stress, smells * Time of day this headache usually occurs: during the day * Duration and Frequency: 1-3 per week, which can last days, but sometimes can go a week w/o a headache. * Headache impact on the patient's quality of life: makes it difficult to work New left facial headache * Characteristics: facial headache, a/w stabbing inner eye pain, movement of her head felt like something was piercing, like something was pulling her, and dizziness. * This severe pain lasted 2 hours and gradually subsided. Does not recall if a usual migraine preceded this. Headache triggered by being sick * Characteristics: head hurts in association with phonophobia. But states it is not as strong or as severe, and is not sure if a/w phonophobia or nausea. Current treatment strategies * Current acute medication use/interventions: Ibuprofen * Current preventative medication use: None * Current non-pharmacological interventions: None PFSH Medical History HAWA positive Migraine Asthma Surgical History No pertinent past surgical history Family History Father Hypertension Mother Asthma Maternal Grandfather Diabetes Paternal Grandmother CVD (cardiovascular disease) Paternal Grandfather Diabetes Social History Housing: House Patient Tobacco Use Status: Never used Tobacco e-Cigarette/Vaping Use: Never Used Current occupational status: employed Cognitive needs: No Hearing needs: No Vision needs: No Physical Exam Vital Signs: Last Vital Signs Pulse 74 08/18/25 08:40 BP 120/90 H 08/18/25 08:40 Pulse Ox 97 08/18/25 08:40 Oxygen Delivery Method Room Air 08/18/25 08:40 BMI result Body Mass Index 35.6 Const Orientation/consciousness: patient oriented x3 Resp Effort & Inspection: normal respiratory effort and able to speak in complete sentences Neuro Other: No palpable scalp tenderness. Romberg induced marked loss of balance to the right, almost falling. Patient reports standing up elicited wooziness feeling, and that she had been feeling woozy all morning. Poor tandem gait General: patient oriented x3 Cranial nerves: Yes CN's II-XII intact bilaterally Cognition (Neuro): normal cognition Gait exam (Neuro): Normal gait present Motor exam (neuro): 5/5 motor strength present throughout Deep tendon reflexes (DTR's): Right triceps reflex intensity grade: 2+, Left triceps reflex intensity grade: 2+, Rt Biceps (C5, C6): 2+, Left biceps reflex intensity grade: 2+, Right brachioradialis reflex intensity grade: 2+, Left brachioradialis reflex intensity grade: 2+, Right patellar reflex intensity grade: 2+ and Left patellar reflex intensity grade: 2+ Coordination: [id number] test normal Pupils: Normal pupillary reactivity/response: bilateral Psych Appearance: grossly normal Mental Status: mental status grossly normal Speech and movement: Normal speech and movement present Affect: normal affect Attitude: cooperative Thought process: Normal thought process present Assessment & Plan Assessment & Plan (1) Sleep attack: Code(s): G47.419 - Narcolepsy without cataplexy Category: Medical (2) Worsening headaches: Code(s): R51.9 - Headache, unspecified Category: Medical (3) Numbness and tingling of left side of face: Code(s): R20.0 - Anesthesia of skin; R20.2 - Paresthesia of skin Category: Medical (4) Snoring: Code(s): R06.83 - Snoring Category: Medical (5) Excessive daytime sleepiness: Code(s): G47.19 - Other hypersomnia Category: Medical (6) Sleep difficulties: Code(s): G47.9 - Sleep disorder, unspecified Category: Medical (7) Restless leg syndrome: Code(s): G25.81 - Restless legs syndrome Category: Medical Plan Discussion note An MRI of the brain, with and without contrast, and an EEG were recommended to assess for secondary etiologies of the changing headache associated with facial tingling and sleep attacks, as well as exam findings of positive Romberg and poor tandem gait. Additionally, the patient is advised to undergo a home sleep study to assess for underlying sleep apnea, a tilt-table test to evaluate for orthostatic hypotension, and a cardiology consult. Consent for these investigations and interventions was obtained. I discussed with the patient the possibility of her symptoms being exacerbated by sleep deprivation. Encouraged her to optimize her sleep hygiene, including maintaining a regular bedtime and wake-up schedule, and using a weighted blanket to alleviate restlessness. I suggested she increase her fluid intake, aiming for at least 64 to 80 ounces a day, and include electrolytes to reduce headaches, dizziness, and cramps, potentially. I encouraged her to incorporate eating at least a small amount of food for both breakfast and lunch. I advised starting her vitamin D supplements, which may help with her fatigue symptoms. I discussed possible migraine prevention strategies, including riboflavin and magnesium, which may also help with leg cramps. Patient was informed and verbally consented to the use of an ambient scribe for clinic note documentation during this visit. You are advised to undergo the following: Brain MRI with and without contrast EEG Tilt-table test Cardiology consult Home sleep study For episodes of sleep attacks and to optimize headache management: Optimize modifiable lifestyle factors ? Eat a balanced diet, including small breakfast and lunch, and a well- balanced dinner. ? Drink enough water throughout the day, typically at least 64-80 oz of fluid per day, including 1-2 servings of electrolyte replacement beverage ? Get regular, adequate sleep consisting of 7-9 hours of sleep per night * Consider trying a weighted blanket ? Discussed strategies that may help to reduce workload after scheduled work hours ? Stay active with routine physical activity, typically at least 30 minutes 5 days per week ? Stay connected with friends and family, enjoy meaningful activities, and take care of your mood ? future considerations: Revisit iron therapy, most recent ferritin level in low 30s For headache and migraine management Tracking Your Headaches and sleep symptoms ? Write down when headaches and sleep symptoms occur, what helps, and any side effects of new treatments ? Tracking is most important after changes in your treatment plan ? Options: - Apps such as [employer]kong - A simple paper calendar Non-Medication Strategies to reduce headache symptoms ? Light sensitivity: special glasses may help (blue-light or FL-41 filters, green lenses) or green-light therapy - Avoid wearing dark sunglasses indoors ? Sound sensitivity: noise-canceling earplugs can reduce bothersome noise ? Neuromodulation devices: certain medical devices can be used alone or with medications to lower headache frequency and severity For acute (as needed) headache treatment: It is important to take acute medications at the first sign of headache. However, please be aware that frequently using most acute medications may increase the frequency of your headache attacks, as well as make your other treatments less effective. * Trial OTC naproxen liquid gel 440 mg at the onset of migraine or headache, may repeat in 8-12 hours Previous acute migraine medication trials: Ibuprofen-ineffective Acute migraine medication contraindications: None at this time For headache prevention medication: Preventative medications should be taken routinely as prescribed for best effect, it may take several weeks for full effect to take effect. * Start Riboflavin 400mg daily in the morning * This is generally well tolerated, however some people may experience mild abdominal discomfort from use. * This will cause your urine to become bright yellow or orange, which is expected and not of any concern. * Start Magnesium 400mg daily at bedtime * Magnesium comes in many subtypes, such as magnesium oxide, glycinate, citrate, and even try magnesium combinations. Additionally magnesium comes in many forms, including tablets, capsules, powders or even liquid formulations. There is not a specific magnesium subtype or form known to be significantly more effective than another. Rather, the magnesium subtype inform that you best tolerate, is the best version for you. * Possible side effects of magnesium include, but are not limited to, GI upset, abdominal cramping, loose stools, and diarrhea Previous migraine prevention medication trials: None Migraine prevention medication contraindications: All beta-blockers due to asthma diagnosis Pt seen in collaboration w/ Dr Cynthia Coffman. We will follow-up upon review of above and with a follow-up clinic visit in 3-6 months or sooner as needed. Orders: Orders RT home sleep study Today G25.81 - Restless legs syndrome, G47.19 - Other hypersomnia, G47.9 - Sleep disorder, unspecified, R06.83 - Snoring ECG Tilt Table Test Today G47.419 - Narcolepsy without cataplexy, R42 - Dizziness and giddiness MR head/brain wo/w con Today R20.0 - Anesthesia of skin, R20.2 - Paresthesia of skin, R42 - Dizziness and giddiness, R51.9 - Headache, unspecified, R55 - Syncope and collapse EEG electroencephalogram Today G47.419 - Narcolepsy without cataplexy, R20.0 - Anesthesia of skin, R20.2 - Paresthesia of skin, R42 - Dizziness and giddiness Referrals Cardiology Referral D50.9 - Iron deficiency anemia, unspecified, E78.5 - Hyperlipidemia, unspecified, G47.419 - Narcolepsy without cataplexy, R42 - Dizziness and giddiness Medications: New riboflavin (vitamin B2) 400 mg PO DAILY 90 tabs 3RF 90 days magnesium glycinate 400 mg (4 x 100 mg magnesium) PO BEDTIME 360 caps 3RF 90 days Coding Level of Care Code New Pt Level 4 (44221) Complex EM visit Add On G2211 Diagnoses Sleep attack G47.419 Worsening headaches R51.9 Numbness and tingling of left side of face R20.0; R20.2 Snoring R06.83 Excessive daytime sleepiness G47.19 Sleep difficulties G47.9 Restless leg syndrome G25.81
[2025-08-18 08:40] VITALS: BP 120/90; PULSE 74; O2SAT 97; BMI 35.6
--- OUTSIDE RECORDS SUMMARY | 2025-08-18 09:29 | XMS_ITS | Clinical Summary ---
Author Organization [facility] Address [address] [place] [address] Care Team Providers Care Digital Campaign Manager Name Role Phone Unavailable Primary Care Provider [...] COVID-19 Vaccine ( - 2023-2 5 season) 2025 Influenza (#1) 2025 Zoster (Shingrix) (1 of [...] Date of Phone Billing Address Personal/Family [address] [place] [address] [employer]
--- OUTSIDE RECORDS SUMMARY | 2025-08-18 09:29 | XMS_ITS | Encounter Summary ---
Author Organization [facility] Address [address] [place] [id number] Phone Care Team Providers Care Machine Binding Folder Name Role Phone Zander Richard MD Primary Care Provider [phone] Encounter Details Date Type Department Care Team (Late st Contact Info) Description 02/28/2018 Ancillary Orders [facility] [address] [place], [place] [address] [place] [address] Abi Mcneil MD [address] [place] [address] Infertility [place] [address] [email or web address] Primary female infertility Social History [...] AM EDT TESTS PERFORMED Pelvic Ultrasound Transvaginal (46475) INDICATIONS/REASONS FOR TESTS Infertility For cryo cycle FINDINGS Uterus Endometrium thickness: 11.3 mm multilayered Few punctate echogenicties at the endometrial-myometrial junction IMPRESSION: Endometrial stripe measured for cryo cycle Procedure Note Yoon Martinez MD - 02/28/2018 TESTS PERFORMED Pelvic Ultrasound Transvaginal (26779) INDICATIONS/REASONS FOR TESTS Infertility For cryo cycle [...] documented as of this encounter Care Teams Machine Binding Folder Relationship Specialty Start Date End Date Zander Richard MD [facility] [place] [address] PCP - General Internal Medicine 10/05/17 documented as of this encounter Additional Source Comments The information contained in this document represents components of the legal health record. It is not the complete legal health record.[facility]
--- OUTSIDE RECORDS SUMMARY | 2025-08-18 09:29 | XMS_ITS | Clinical Summary ---
Author Organization [facility] Address [address] [facility] [address] [place] [phone] Phone Care Team Providers Care Management Accounts Manager Name Role Phone Zander Richard MD Primary Care Provider [phone] Allergies No known active allergies Medications needle, disp, 18 G 18 gauge x 1 1/2 Ndle 1 each by Miscellaneous route as needed. 30 each 3 8 Active syringe with needle 3 mL 22 x 1 1/2 Syrg 1 Syringe by Miscellaneous route as needed. 30 each 3 8 Active estradiol (ESTRACE) [address] 1 mg vaginally 2 (two) times a day. Active progesterone 50 mg/mL injection Inject 75 mg into the muscle daily. 1.5mL/ cc daily Active Active Problems Problem Noted Date Diagnosed Date Unable to get , female 03/28/2019 Egg (oocyte) (ovum) donor, unspecified 9 Family History Medical History Relation Comments Breast cancer Neg Hx Cervical cancer Neg Hx Ovarian cancer Neg Hx Uterine cancer Neg Hx Social History Tobacco Use Types Packs/Day Years Used Date Smoking Tobacco: Never Smokeless Tobacco: Never Alcohol Use Standard Drinks/Week Comments No 0 (1 standard drink = 0.6 oz pur e alcohol) Education Answer Date Recorded Are you interested in more education? Not on rey e 03/23/2023 Are you concerned about learning? Not on file 03/23/2023 No 03/23/2023 No 03/23/2023 Digital Access Answer Date Recorded No 04/23/2023 No 04/23/2023 No 04/23/2023 Reliable internet access at home? Not on file 04/23/2023 Device with a working camera? Not on file Comments Unknown Sex and Gender Information Value Date Recorded Sex Assigned at Not on file Legal Sex Female 11:48 AM EDT Gender Identity Not on file Sexual Orientation Not on file Last Filed Vital Signs Vital Sign Reading Time Taken Comments Blood Pressure 135/62 07/24/2018 1:57 PM EDT Pulse 72 07/24/2018 1:57 PM EDT Temperature 36.6 C (97.8 F) 07/24/2018 1:57 PM EDT Respiratory Rate 18 07/24/2018 1:57 PM EDT Oxygen Saturation 99% 07/24/2018 1:57 PM EDT Inhaled Oxygen Concentration - - Weight 82.7 kg (182 lb 6.4 oz) 07/24/2018 1:57 P M EDT Height 162.6 cm (5' 4 ) 07/24/2018 1:57 PM EDT Body Mass Index 31.31 07/24/2018 1:57 PM EDT Plan of Treatment Health Maintenance Due Date Last Done Comments HEPATITIS C SCREENING 2005 HIV ONE-TIME SCREENING (18-6 5 YEARS) 2005 PAP SMEAR 2008 DEPRESSION SCREENING 10/03/2018 10/03/2017 INFLUENZA VACCINE (#1) 2025 9, 12/26/2018, 09/11/2016 COVID-19 VACCINE (2 - 2024-2 6 season) 2025 02/26/2021 Adult Td,Tdap Booster 11/14/2029 11/14/2019 , 08/08/2016 SMOKING STATUS SCREENING (On ce After 26 Yrs) Completed 07/24/2018 HEPATITIS A VACCINES Aged Out No long er eligible based on patient's age to complete this topic HIB VACCINES Aged Out No longer eligi ble based on patient's age to complete this topic MENINGOCOCCAL VACCINES (ACWY) Aged Out No longer eligible based on patient's age to complete this topic MENINGOCOCCAL VACCINES (B) Aged Out N o longer eligible based on patient's age to complete this topic PNEUMOCOCCAL VACCINES (0-49 years) Aged Out No longer eligible b ased on patient's age to complete this topic Medical Devices Not on file Insurance HEALTH PLAN PLAN [employer] Advance Directives For more information, please contact: [phone] (9AM - 5PM [facility], Sunday-Sunday) * Full Code (Presumed) (Latest Code Status on File) Date Activated Date Inactivated Comments 04/15/2019 6:50 AM 04/30/2019 6:36 AM * Full Code (Presumed) Date Activated Date Inactivated Comments 11/30/2018 8:19 AM 12/15/2018 4:23 AM * Full Code (Presumed) Date Activated Date Inactivated Comments 10/04/2018 7:12 AM 10/19/2018 5:18 AM * Full Code (Presumed) Date Activated Date Inactivated Comments 03/05/2018 1:47 PM 03/20/2018 6:32 AM * Full Code (Presumed) Date Activated Date Inactivated Comments 12/16/2017 7:26 AM 12/31/2017 4:13 AM Care Teams Management Accounts Manager Relationship Specialty Start Date End Date Zander Richard MD [facility] [place] [address] PCP - General Internal Medicine 10/05/17 Additional Source Comments The information contained in this document represents components of the legal health record. It is not the complete legal health record.[facility]
--- OUTSIDE RECORDS SUMMARY | 2025-08-18 09:29 | XMS_ITS | Encounter Summary ---
Author Organization [facility] Address [address] [place] [address] Care Team Providers Care Rn Birthing Name Role Phone Unavailable Primary Care Provider Unavailabl e Encounter Details Date Type Department Care Team (Late st Contact Info) Description 09/07/2015 Orders Only [facility] PULMONOLOGY PHYSICIAN [address] [facility] [address] [place] [id number] Provider, [facility] Social History Tobacco Use Types Packs/Day Years [...] of this encounter Results * Due to [place] state law, this organization might not be sharing negative HIV tests. * US TRANSVAGINAL (FOR IVF USE ONLY)FC (09/07/2015 8:41 AM EDT) Narrative Celsa Escoto Tech - 09/07/2015 8:42 AM EDT Study performed for the acquisition of images only. No professional Interpretation required. Procedure Note Celsa Escoto [...]
== END 2025-08-18 10:19 | disposition home or self-care (01) ==
LOC: HO.HSMS 08:30
PROVIDERS: PCP Internal Medicine; Visit Provider Nurse Practitioner Family
DX: G47.419 Narcolepsy without cataplexy (principal); R51.9 Headache, unspecified; R20.0 Anesthesia of skin; R20.2 Paresthesia of skin; R06.83 Snoring; G47.19 Other hypersomnia; G47.9 Sleep disorder, unspecified; G25.81 Restless legs syndrome
CPT/HCPCS: 99204

== ENCOUNTER → 2025-08-18 08:29 | Outpatient (BNVA) | payer OTHER, SELFPAY | PROVIDERS: PCP Internal Medicine; Visit Provider Nurse Practitioner Family | DX: G47.419 Narcolepsy without cataplexy (principal); G47.19 Other hypersomnia; G47.9 Sleep disorder, unspecified; G25.81 Restless legs syndrome; R51.9 Headache, unspecified; R20.0 Anesthesia of skin; R20.2 Paresthesia of skin; R06.83 Snoring | CPT/HCPCS: 99202 ==

== ENCOUNTER 2025-09-21 14:16 | Outpatient (REF) | payer OTHER, SELFPAY ==
--- NOTE | 2025-09-21 15:48 | EEG_ITS ---
Reason for Exam: G47.419 Narcolepsy without cataplexy, R20.2 numbness and tingling of face Roomed Performed:?402 History: migraine, vitamin D deficiency, asthma, anemia, B12 deficiency, HLD, GERD, obesity, back pain, paresthias and dizziness - Patient reports episodes of right side of face tingling or lips tingling. Patient reports these episodes seem to happen when she is upset and are triggered by dehydration or lack of sleep. Patient's last episode was 2 weeks ago. Last meal was 1pm today. Medication: albuterol, Vit D3, Vit D2, magnesium, Vit B2 Technical description Photic stimulation: completed Hyperventilation:? good effort Behavioral state: cooperative State of Consciousness: awake Skull defect: none Sedation: none Handedness: right Duration of study:?25 min 55 sec Description: This is a 16 channel EEG with an EKG lead. Patient is reported awake during the tracing. Background EEG rhythm is about 10 hertz 5 to 100 microvolt posteriorly lower amplitude fast anteriorly. Rarely patient transitioned into light drowsiness. Photic stimulation does not produce any significant abnormality. Hyperventilation is unremarkable. Rare right temporal somewhat sharply contoured theta range activity was noted with no definite spikes. Cardiac lead did not reveal any significant abnormality. Impression: Mildly abnormal EEG though not diagnostic of epilepsy. I recommend 48 hour ambulatory EEG for better definition. MTDD
--- OUTSIDE RECORDS SUMMARY | 2025-09-21 17:54 | XMS_ITS | Clinical Summary ---
Author Organization [facility] Address [address] [place] [address] Phone Care Team Providers Care Director Social Name Role Phone Zander Richard MD Primary Care Provider [phone] Allergies No known active allergies Medications needle, [...] Not on file Insurance HEALTH PLAN PLAN 43 [facility] [place] [facility] FAMILY HEALTH PLAN Keshia Advance Directives For more information, please contact: [phone] (9AM - 5PM [facility], Sunday-Sunday) * Full Code (Presumed) (Latest Code [...] 7:26 AM 12/31/2017 4:13 AM Care Teams Director Social Relationship Specialty Start Date End Date Zander Richard MD [facility] [place] [address] PCP - General Internal Medicine 10/05/17 Additional Source Comments The information contained in this document represents components of the legal health record. It is not the complete legal health record.[facility]
--- OUTSIDE RECORDS SUMMARY | 2025-09-21 17:54 | XMS_ITS | Encounter Summary ---
Author Organization [facility] Address [address] [place] [address] Phone Care Team Providers Care Kettle Operator Head Name Role Phone Zander Richard MD Primary Care Provider [phone] Encounter Details Date Type Department Care Team (Late st Contact Info) Description 02/28/[address] [facility] [address] [place], [place] [address] [place] [address] Abi Mcneil MD [address] [place] [address] Infertility and [place] [address] [email or web address] Primary female infertility Social History [...] AM EDT TESTS PERFORMED Pelvic Ultrasound Transvaginal (49029) INDICATIONS/REASONS FOR TESTS Infertility For cryo cycle FINDINGS Uterus Endometrium thickness: 11.3 mm multilayered Few punctate echogenicties at the endometrial-myometrial junction IMPRESSION: Endometrial stripe measured for cryo cycle Procedure Note Yoon Martinez MD - 02/28/2018 TESTS PERFORMED Pelvic Ultrasound Transvaginal (36739) INDICATIONS/REASONS FOR TESTS Infertility For cryo cycle [...] documented as of this encounter Care Teams Kettle Operator Head Relationship Specialty Start Date End Date Zander Richard MD [facility] [place] [address] PCP - General Internal Medicine 10/05/17 documented as of this encounter Additional Source Comments The information contained in this document represents components of the legal health record. It is not the complete legal health record.[facility]
--- OUTSIDE RECORDS SUMMARY | 2025-09-21 17:54 | XMS_ITS | Encounter Summary ---
Author Organization [facility] Address [address] [place] [address] Care Team Providers Care Screw Machine Set Up Operator Name Role Phone Unavailable Primary Care Provider Unavailabl e Encounter Details Date Type Department Care Team (Late st Contact Info) Description 09/07/2015 Orders Only [facility] SALES PRODUCT SPECIALIST [address] [place] [id number] [facility] Social History Tobacco Use Types Packs/Day Years [...] of this encounter Results * Due to [place] state law, this organization might not be [...]
--- OUTSIDE RECORDS SUMMARY | 2025-09-21 17:54 | XMS_ITS | Clinical Summary ---
Author Organization [facility] Address [address] [place] [address] Care Team Providers Care Food Prep Worker Name Role Phone Unavailable Primary Care Provider [...] 3-dose series) 2006 COVID-19 Vaccine ( - 2024-2 6 season) 2025 Influenza (#1) 2025 Zoster (Shingrix) [...] Date of Phone Billing Address Personal/Family [address] [place] [address] [employer]
== END 2025-09-21 14:17 | disposition home or self-care (01) ==
LOC: HO.NEURO 14:16
PROVIDERS: Visit Provider Nurse Practitioner Family
DX: G47.419 Narcolepsy without cataplexy (principal); R20.0 Anesthesia of skin; R20.2 Paresthesia of skin; R42 Dizziness and giddiness
CPT/HCPCS: 95816

== ENCOUNTER → 2025-09-21 15:48 | Outpatient (BNV) | payer OTHER, SELFPAY | PROVIDERS: Visit Provider Psychiatry & Neurology Neurology | DX: G47.419 Narcolepsy without cataplexy (principal) | CPT/HCPCS: 95816 ==

== ENCOUNTER 2025-10-20 15:15 | Outpatient (AMB) | payer OTHER, SELFPAY ==
--- NOTE | 2025-10-20 15:23 | A.OFFVIS_ITS ---
Intake Visit Reasons: EMISSIONS TESTING TECHNICIAN/PCP referral for VV Intake Note: New patient presents for VV. Patient gets bilateral leg swelling, cramping and pain. Has been happening for about two years. Accompanied by: Spouse Allergies No Known Allergies Allergy (Verified 10/20/25 15:25) [facility] EMISSIONS TESTING TECHNICIAN/PCP referral for VV: Details: Very pleasant 40-year-old female patient presents for painful varicose veins. Complaints include pain over varicosities, swelling of lower extremities, cramping, fatigue, and heaviness of the lower extremities. It has been affecting there daily activities including walking. It is noted more so in right leg. Patient denies any previous venous surgery or injections. Patient denies any history of DVT/ PE. Patient denies any history of phlebitis. Trial of compression includes - [id number] They now present for vascular evaluation regarding their varicose veins. [facility] Medical History HAWA positive Migraine Asthma Surgical History No pertinent past surgical history Family History Father Hypertension Mother Asthma Maternal Grandfather Diabetes Paternal Grandmother CVD (cardiovascular disease) Paternal Grandfather Diabetes Social History Housing: House Patient Tobacco Use Status: Never used Tobacco e-Cigarette/Vaping Use: Never Used Current occupational status: employed Cognitive needs: No Hearing needs: No Vision needs: No Review of Systems Const Reports as per HPI ENT Reports no additional complaints Card Denies chest pain, Denies chest pain at rest and Denies chest pain with activity Resp Denies chest congestion and Denies cough GI Reports no additional complaints Musc Details: pain over varicosities, aching of lower extremities, swelling, cramping, heaviness and tiredness, itching Denies abnormal gait Skin/Breast Reports pruritus and Denies wounds Neuro Reports no additional complaints and Denies abnormal gait Psych Denies no additional complaints Physical Exam Const General: cooperative, healthy appearing and comfortable Orientation/consciousness: oriented to person, oriented to place and oriented to time Neck Carotids: no bruits Chest Chest palpation & inspection: normal inspection of the chest and normal palpation of entire chest wall Resp Effort & Inspection: normal respiratory effort and able to speak in complete sentences Cardio Rate: regular rate Heart sounds: S1 normal heart sound present and S2 normal heart sound present Peripheral pulses: Peripheral pulses 2+ throughout GI Inspection: Yes normal to inspection Skin Other: +1 edema, multiple spider telangiectasias CEAP Classification C3 Ep - Etiology Primary As - superficial veins P - reflux General skin exam: dry skin Neuro General: oriented to person, oriented to place and oriented to time Extrem Right lower extremity: full ROM, normal capillary refill and edema Left lower extremity: full ROM, normal capillary refill and edema Psych Mental Status: mental status grossly normal Assessment & Plan Assessment & Plan (1) Varicose veins of right lower extremity with inflammation: Code(s): I83.11 - Varicose veins of right lower extremity with inflammation Category: Medical Plan: In short, the patient has evidence of venous insufficiency. I have discussed the pathophysiology with the patient. In addition I have provided informational material regarding venous disease to the patient. We have discussed conservative measures including compression, elevation, and exercise. I have also provided a handout regarding appropriate use of compression stockings and where to purchase good compression stockings as well. I have taken the liberty of ordering venous insufficiency testing with the patient. They will follow up with me after testing. The patient had an opportunity to ask questions regarding the treatment plan. All questions were answered. Imaging studies, laboratory studies and physical exam results were discussed and reviewed in detail. No major barriers to understanding were identified. The patient expressed understanding and agreemen t with the above treatment plan. The patient is aware they should contact our office by phone for worsening of the current condition or the appearance of new symptoms. Thank you for allowing me to participate in the vascular care of this patient. If you have any questions or concerns regarding the treatment for the above condition please do not hesitate to contact me. The office telephone contact is [phone]. This note is constructed using voice recognition software. While every effort has been made to ensure accuracy, improvement engineer errors may have been included. Thank you for allowing me to participate in the care of your patient. Yours sincerely, Tato Cruz MD, FACS, R.P.V.I. Orders: Orders US venous duplex LE BI Today I83.11 - Varicose veins of right lower extremity with inflammation Coding Level of Care Code New Pt Level 4 (04838) Diagnoses Varicose veins of right lower extremity with inflammation I83.11
--- OUTSIDE RECORDS SUMMARY | 2025-10-20 18:55 | XMS_ITS | Clinical Summary ---
Author Organization [facility] Address [address] [place] [address] Care Team Providers Care Court Transcriber Name Role Phone Unavailable Primary Care Provider [...] Date of Phone Billing Address Personal/Family [address] [place] [address] [employer]
--- OUTSIDE RECORDS SUMMARY | 2025-10-20 18:55 | XMS_ITS | Encounter Summary ---
Author Organization [facility] Address [address] [place] [address] Care Team Providers Care Grommet Man Name Role Phone Unavailable Primary Care Provider Unavailabl e Encounter Details Date Type Department Care Team (Late st Contact Info) Description 09/07/2015 Orders Only [facility] MATH INTERVENTIONIST [address] [facility] [address] [place] [phone] Provider, [facility] Social History Tobacco Use Types [...] of this encounter Results * Due to [place] state law, this organization might not be [...]
--- OUTSIDE RECORDS SUMMARY | 2025-10-20 18:55 | XMS_ITS | Clinical Summary ---
Author Organization [facility] Address [address] [place] [address] Phone Care Team Providers Care Rag Boiler Name Role Phone Zander Richard MD Primary Care Provider [phone] Allergies No known active allergies Medications needle, [...] on file Insurance HEALTH PLAN PLAN 43 [facility] [place] [employer] [facility] FAMILY HEALTH PLAN Keshia Advance Directives For more information, please contact: [phone] (9AM - 5PM [facility], Sunday-Sunday) * Full Code (Presumed) (Latest [...] 7:26 AM 12/31/2017 4:13 AM Care Teams Rag Boiler Relationship Specialty Start Date End Date Zander Richard MD [facility] [place] [address] PCP - General Internal Medicine 10/05/17 Additional Source Comments The information contained in this document represents components of the legal health record. It is not the complete legal health record.[facility]
--- OUTSIDE RECORDS SUMMARY | 2025-10-20 18:55 | XMS_ITS | Encounter Summary ---
Author Organization [facility] Address [address] [place] [address] Phone Care Team Providers Care Physical Therapist Clinic Director Name Role Phone Zander Richard MD Primary Care Provider Encounter Details Date Type Department Care Team (Late st Contact Info) Description 02/28/2018 Ancillary Orders [facility] [address] [place], [place] [address] [place] [address] Abi Mcneil MD [address] [place] [address] Infertility and [place] [address] [email or web address] Primary female infertility Social History Tobacco Use [...] AM EDT TESTS PERFORMED Pelvic Ultrasound Transvaginal (22656) INDICATIONS/REASONS FOR TESTS Infertility For cryo cycle FINDINGS Uterus Endometrium thickness: 11.3 mm multilayered Few punctate echogenicties at the endometrial-myometrial junction IMPRESSION: Endometrial stripe measured for cryo cycle Procedure Note Yoon Martinez MD - 02/28/2018 TESTS PERFORMED Pelvic Ultrasound Transvaginal (76775) INDICATIONS/REASONS FOR TESTS Infertility For cryo cycle [...] documented as of this encounter Care Teams Physical Therapist Clinic Director Relationship Specialty Start Date End Date Zander Richard MD [facility] [place] [address] PCP - General Internal Medicine 10/05/17 documented as of this encounter Additional Source Comments The information contained in this document represents components of the legal health record. It is not the complete legal health record.[facility]
== END 2025-10-20 15:58 | disposition home or self-care (01) ==
LOC: HO.HVS 15:16
PROVIDERS: PCP Internal Medicine; Visit Provider Surgery Vascular Surgery
DX: I83.11 Varicose veins of right lower extremity with inflammation (principal)
CPT/HCPCS: 99204

== ENCOUNTER → 2025-10-20 15:15 | Outpatient (BNVA) | payer OTHER, SELFPAY | PROVIDERS: PCP Internal Medicine; Visit Provider Surgery Vascular Surgery | DX: I83.11 Varicose veins of right lower extremity with inflammation (principal) | CPT/HCPCS: 99202 ==

== ENCOUNTER → 2025-11-04 15:01 | Outpatient (BNV) | payer OTHER, SELFPAY | PROVIDERS: PCP Internal Medicine; Visit Provider Radiology Body Imaging | DX: R55 Syncope and collapse (principal) | CPT/HCPCS: 70553 ==

== ENCOUNTER 2025-11-04 15:02 | Outpatient (REF) | payer OTHER, SELFPAY ==
--- NOTE | ~2025-11-04 | MR_ITS ---
EXAMINATION: MR BRAIN WITHOUT THEN WITH IV CONTRAST CLINICAL INFORMATION: R55 - Syncope and collapse COMPARISON: None available. TECHNIQUE: Multiplanar, multisequence MRI of the brain was obtained before and after the intravenous administration of 10 ml of contrast gadolinium Gadavist. FINDINGS: Brain parenchyma: No shift of midline structures. No evidence of acute infarct, parenchymal hemorrhage or mass lesion. Mild low-lying cerebellar tonsils with rounded inferior margins do not meet criteria for Chiari malformation. No abnormal parenchymal enhancement following administration of intravenous contrast. Ventricles/extra-axial spaces: No hydrocephalus. No extra-axial fluid collection. Extracranial structures. Arterial flow voids in the skull base are preserved. Bilateral orbital globes are unremarkable. Paranasal sinuses and mastoid air cells are essentially clear. MR/MR head/brain wo/w con IMPRESSION: No acute intracranial findings. No abnormal parenchymal enhancement. Electronically signed by: Sam Bhat MD 11/04/2025 04:08 PM [facility]
--- OUTSIDE RECORDS SUMMARY | 2025-11-04 23:37 | XMS_ITS | Encounter Summary ---
Author Organization [facility] Address [address] [place] [address] Phone Care Team Providers Care Insurance Loss Assessor Name Role Phone Zander Richard MD Primary Care Provider [phone] Encounter Details Date Type Department Care Team (Late st Contact Info) Description 02/28/2018 Ancillary Orders [facility] [address] [place], [place] [address] [place] [address] Abi Mcneil MD [address] [place] [address] Infertility and [place]ductive [place] [address] [email or web address] Primary female infertility Social [...] AM EDT TESTS PERFORMED Pelvic Ultrasound Transvaginal (18375) INDICATIONS/REASONS FOR TESTS Infertility For cryo cycle FINDINGS Uterus Endometrium thickness: 11.3 mm multilayered Few punctate echogenicties at the endometrial-myometrial junction IMPRESSION: Endometrial stripe measured for cryo cycle Procedure Note Yoon Martinez MD - 02/28/2018 TESTS PERFORMED Pelvic Ultrasound Transvaginal (59994) INDICATIONS/REASONS FOR TESTS Infertility For cryo cycle [...] documented as of this encounter Care Teams Insurance Loss Assessor Relationship Specialty Start Date End Date Zander Richard MD [facility] [place] [address] PCP - General Internal Medicine 10/05/17 documented as of this encounter Additional Source Comments The information contained in this document represents components of the legal health record. It is not the complete legal health record.[facility]
--- OUTSIDE RECORDS SUMMARY | 2025-11-04 23:38 | XMS_ITS | Clinical Summary ---
Author Organization [facility] Address [address] [place] [address] Care Team Providers Care Physical Therapy Instructor Name Role Phone Unavailable Primary Care Provider [...] Date of Phone Billing Address Personal/Family [address] [place] [address] [employer]
--- OUTSIDE RECORDS SUMMARY | 2025-11-04 23:38 | XMS_ITS | Encounter Summary ---
Author Organization [facility] Address [address] [place] [address] Care Team Providers Care Meal Cook Name Role Phone Unavailable Primary Care Provider Unavailabl e Encounter Details Date Type Department Care Team (Late st Contact Info) Description 09/07/2015 Orders Only [facility] DECORATOR HAND [address] [facility] [address] [place] [phone] Provider, [facility] Social History Tobacco Use Types [...] of this encounter Results * Due to [place] state law, this organization might not be [...]
--- OUTSIDE RECORDS SUMMARY | 2025-11-04 23:38 | XMS_ITS | Clinical Summary ---
Author Organization [facility] Address [address] [facility] [address] [place] [address] Phone Care Team Providers Care Paperboard Machine Operator Name Role Phone Zander Richard MD Primary Care Provider Allergies No known active allergies Medications needle, [...] Advance Directives For more information, please contact: [phone] (9AM - 5PM [facility], Sunday-Sunday) * Full Code (Presumed) (Latest Code [...] 7:26 AM 12/31/2017 4:13 AM Care Teams Paperboard Machine Operator Relationship Specialty Start Date End Date Zander Richard MD [facility] [place] [address] PCP - General Internal Medicine 10/05/17 Additional Source Comments The information contained in this document represents components of the legal health record. It is not the complete legal health record.[facility]
== END 2025-11-04 15:03 | disposition home or self-care (01) ==
LOC: HO.MRI 15:02
PROVIDERS: PCP Internal Medicine; Visit Provider Nurse Practitioner Family
DX: R55 Syncope and collapse (principal); R42 Dizziness and giddiness; R51.9 Headache, unspecified; R20.0 Anesthesia of skin; R20.2 Paresthesia of skin
CPT/HCPCS: 70553; A9585

== ENCOUNTER 2025-11-24 14:50 | Outpatient (AMB) | payer OTHER, SELFPAY ==
--- NOTE | 2025-11-24 14:59 | A.OFFVIS_ITS ---
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 She is accompanied by her . Interval workup: 11/04/2025, MR head/brain wo/w con * No acute intracranial findings. No abnormal parenchymal enhancement. 09/07/2025, tilt-table test (at [facility]): * Normal study 09/21/2025, baseline EEG: * Mildly abnormal EEG though not diagnostic of epilepsy. Home sleep study: * Not yet completed She has not noticed any interval episodes of sleep attacks, other than one night where she was just fell asleep due to be very tired. She may still feel an internal whooziness, but no episodes of syncope. This is not a/w her migraine. She has been experiencing at least 1 migraine attack per week, lasting 1-3 days. These will subside awhile after taking a Tylenol, but will resume after a few hours or upon waking up. She notes that the OTC magnesium she purchased provoked GI upset. She states overall, she is trying to manage her daily routine and stress better. She is prone to skip breakfast in the morning. 08/18/2025, initial HPI: A 40-year-old female presents for a new patient evaluation of dizziness and passing out, however patient would also like to discuss headache and other neurological symptoms. The patient is accompanied by her , Venancio. PMH is notable for: Migraine, vitamin D deficiency, asthma, microcytic anemia, B12 deficiency, HLD, GERD, obesity, back pain, paresthesias, and dizziness. Pt reports episodes of abruptly falling asleep/?passing out ? after eating a heavy meal or a high sugar meal in the evening. 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 Then will wake up startled and confused around 1-3 am, and is not sure what happened. Typically, she gets up and puts her stuff away. Then she goes back to sleep, sometimes tossing and turning for some time. Her reports that he looks over, and she appears to be sleeping. He states that he has not seen signs of shaking, loss of consciousness, or incontinence during these episodes. He also notes that during this time, she was also reporting episodes of internal dizziness, wooziness, instability, and lightheadedness. This would also occur during the shower. She is also prone to foot cramps that move up into her calves, thighs, and abdomen. This is triggered by flexing her feet. The cramps are always triggered by movement. She states that this has not happened in the last month; however, previously, it was happening more regularly, about 3-4 times every 2 weeks. Her sleep pattern was 1-2 am, and she woke up around 7:10 am. She notes that over the last month, she has been trying to limit the amount of work she brings home and maintain a more regular bedtime. Now, bedtime is 11 pm- 12 am, and wake-up time is 6:20 am?voids about once a night. She is not currently taking her vitamin D supplement, as previous OTC vitamin D supplements caused dry mouth. PMH and ROS are also notable for: Abdominal bloating Neck pain, joint pain Numbness, tingling Fatigue Sleep difficulties Left eye twitches all the time. She passed out about 13 years ago when visiting someone in the hospital at 4 am, after working a long shift. Prone to lightheadedness/pre-syncope when seeing blood, raw chicken, or certain smells. Pertinent denials include: Known history of seizure, head injury. Lifestyle considerations * Typical nutrition intake: Occasionally eats breakfast or lunch, but if she does, it is something small. * Typical fluid intake per day: She also does not drink a lot of fluid- hard to use the bathroom at work. * Caffeine use: 4 cups per week * Sleep routine: Usual bedtime: 11 p.m.- 12 a.m. and wake-up time: 6:20 a.m. 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 However recently had a new onset left facial headache. * Age/time of onset: elementary school age * Preceding causes: denies * Previous work-up: maybe as a child * Previous neurological care: maybe at 12 years old * Family history of headache: mother and sister Typical migraine headache characteristics * Prodrome symptoms: has a sensation that a migraine will come * Aura: denies * Pain intensity: severe * Location, quality, characteristics: typically eyes and holocranial throbbing pain * Associated symptoms: photophobia, phonophobia, osmophobia, allodynia, nausea, vomiting, cognitive difficulties, activity intolerance, * Atypical associated symptoms: left lip numb and tingling or unilateral facial w/wo headache * Postdrome: unsure * Aggravating factors during this headache: activity * Triggers that provoke this headache: stress, smells * Time of day this headache usually occurs: during the day * Duration and Frequency: 1-3 per week, which can last days, but sometimes can go a week w/o a headache. * Headache impact on the patient's quality of life: makes it difficult to work New left facial headache * Characteristics: facial headache, a/w stabbing inner eye pain, movement of her head felt like something was piercing, like something was pulling her, and dizziness. * This severe pain lasted 2 hours and gradually subsided. Does not recall if a usual migraine preceded this. Headache triggered by being sick * Characteristics: head hurts in association with phonophobia. But states it is not as strong or as severe, and is not sure if a/w phonophobia or nausea. Current treatment strategies * Current acute medication use/interventions: Ibuprofen * Current preventative medication use: None * Current non-pharmacological interventions: None PFSH Medical History HAWA positive Migraine Asthma Surgical History No pertinent past surgical history Family History Father Hypertension Mother Asthma Maternal Grandfather Diabetes Paternal Grandmother CVD (cardiovascular disease) Paternal Grandfather Diabetes Social History Housing: House Patient Tobacco Use Status: Never used Tobacco e-Cigarette/Vaping Use: Never Used Current occupational status: employed Cognitive needs: No Hearing needs: No Vision needs: No Physical Exam Vital Signs: Last Vital Signs BP 94/60 11/24/25 15:00 BMI result Body Mass Index 36.8 Const Orientation/consciousness: patient oriented x3 Resp Effort & Inspection: normal respiratory effort and able to speak in complete sentences Neuro General: patient oriented x3 Cranial nerves: Yes CN's II-XII intact bilaterally Cognition (Neuro): normal cognition Gait exam (Neuro): Normal gait present Coordination: [id number] test normal Psych Appearance: grossly normal Mental Status: mental status grossly normal Speech and movement: Normal speech and movement present Affect: normal affect Attitude: cooperative Thought process: Normal thought process present Assessment & Plan Assessment & Plan (1) Sleep attack: Code(s): G47.419 - Narcolepsy without cataplexy Category: Medical (2) Snoring: Code(s): R06.83 - Snoring Category: Medical (3) Excessive daytime sleepiness: Code(s): G47.19 - Other hypersomnia Category: Medical (4) Sleep difficulties: Code(s): G47.9 - Sleep disorder, unspecified Category: Medical (5) Restless leg syndrome: Code(s): G25.81 - Restless legs syndrome Category: Medical (6) Chronic migraine without aura without status migrainosus, not intractable: Code(s): G43.709 - Chronic migraine without aura, not intractable, without status migrainosus Category: Medical Plan Discussion note Reviewed the interval workup, that was overall reassuring. However, the EEG EEG did show mild abnormalities not consistent with epileptogenic activity, and with recommendation for follow-up 48 hour EEG. She is again advised to undergo home sleep study, to assess for sleep apnea You are advised to undergo the followin hour EEG Cardiology consult- as scheduled Home sleep study For episodes of sleep attacks and to optimize headache management: Optimize modifiable lifestyle factors ? Eat a balanced diet, including small breakfast and lunch, and a well- balanced dinner. ? Drink enough water throughout the day, typically at least 64-80 oz of fluid per day, including 1-2 servings of electrolyte replacement beverage ? Get regular, adequate sleep consisting of 7-9 hours of sleep per night * Consider trying a weighted blanket ? Discussed strategies that may help to reduce workload after scheduled work hours ? Stay active with routine physical activity, typically at least 30 minutes 5 days per week ? Stay connected with friends and family, enjoy meaningful activities, and take care of your mood ? future considerations: Revisit iron therapy, most recent ferritin level in low 30s For headache and migraine management Tracking Your Headaches and sleep symptoms ? Write down when headaches and sleep symptoms occur, what helps, and any side effects of new treatments ? Tracking is most important after changes in your treatment plan ? Options: - Apps such as [employer] - A simple paper calendar Non-Medication Strategies to reduce headache symptoms ? Light sensitivity: special glasses may help (blue-light or FL-41 filters, green lenses) or green-light therapy - Avoid wearing dark sunglasses indoors ? Sound sensitivity: noise-canceling earplugs can reduce bothersome noise ? Neuromodulation devices: certain medical devices can be used alone or with medications to lower headache frequency and severity For acute (as needed) headache treatment: It is important to take acute medications at the first sign of headache. However, please be aware that frequently using most acute medications may increase the frequency of your headache attacks, as well as make your other treatments less effective. * Trial Sumatriptan 100mg tab, 1/2 - 1 tab (50-100mg) at onset of headache, may repeat in 2 hours. Max of 2 tabs (200mg) per 24 hours. * May take sumatriptan with OTC Tylenol 650-1,000mg every 4-6 hours, Ibuprofen (liquid gels) 600mg every 6 hours, or Naproxen (liquid gels) 440mg q 12 hrs prn. Previous acute migraine medication trials: Ibuprofen-ineffective Acute migraine medication contraindications: None at this time For headache prevention medication: Preventative medications should be taken routinely as prescribed for best effect, it may take several weeks for full effect to take effect. * Continue Riboflavin 400mg daily in the morning * This is generally well tolerated, however some people may experience mild abdominal discomfort from use. * This will cause your urine to become bright yellow or orange, which is expected and not of any concern. * Start Co Q10 400 mg daily in the morning * Take with a healthy higher-fat food, such as avocado, peanut butter, whole- milk yogurt, or an egg * This is generally well tolerated, however possible side effects include upset stomach, diarrhea, heartburn, nausea, and trouble sleeping * Try reducing magnesium from 400 mg to 200m-250 mg daily at bedtime. Previous migraine prevention medication trials: None Migraine prevention medication contraindications: All beta-blockers due to asthma diagnosis We will follow-up upon review of above and with a follow-up clinic visit in 3-6 months or sooner as needed. Medications: New coenzyme Q10 Daily in a.m.. Take with higher fat food 400 mg PO DAILY 90 caps 3RF 90 days sumatriptan succinate 50 - 100 mg orally at onset of headache, may repeat in 2 hrs PRN; max 2 tabs per day or 4 tabs/week (may take with Ibuprofen) 12 tabs 6RF migraine headache 30 days Refilled magnesium glycinate 400 mg (4 x 100 mg magnesium) PO BEDTIME 360 caps 3RF 90 days Coding Level of Care Code Est Pt Level 4 (67940) Diagnoses Sleep attack G47.419 Snoring R06.83 Excessive daytime sleepiness G47.19 Sleep difficulties G47.9 Restless leg syndrome G25.81 Chronic migraine without aura without status migrainosus, not intractable G43.702
[2025-11-24 15:00] VITALS: BP 94/60; BMI 36.8
--- OUTSIDE RECORDS SUMMARY | 2025-11-24 18:26 | XMS_ITS | Clinical Summary ---
Author Organization [facility] Address [address] [place] [address] Care Team Providers Care Teacher Drama Name Role Phone Unavailable Primary Care Provider [...] Date of Phone Billing Address Personal/Family [address] [place] [address] [employer]
--- OUTSIDE RECORDS SUMMARY | 2025-11-24 18:26 | XMS_ITS | Clinical Summary ---
Author Organization [facility] Address [address] [facility] [address] [place] [address] Phone Care Team Providers Care Sales Enablement Specialist Name Role Phone Znader Richard MD Primary Care Provider [phone] Allergies No known active allergies Medications needle, [...] Advance Directives For more information, please contact: [phone] (9AM - 5PM [facility], Sunday-Sunday) * Full Code (Presumed) (Latest [...] 7:26 AM 12/31/2017 4:13 AM Care Teams Sales Enablement Specialist Relationship Specialty Start Date End Date Zander Richard MD [facility] [place] [address] PCP - General Internal Medicine 10/05/17 Additional Source Comments The information contained in this document represents components of the legal health record. It is not the complete legal health record.[facility]
--- OUTSIDE RECORDS SUMMARY | 2025-11-24 18:26 | XMS_ITS | Encounter Summary ---
Author Organization [facility] Address [address] [place] [address] Care Team Providers Care Gaming Cage Cashier Name Role Phone Unavailable Primary Care Provider Unavailabl e Encounter Details Date Type Department Care Team (Late st Contact Info) Description 09/07/2015 Orders Only [facility] ACCOUNTING MACHINE SERVICER [address] [facility] [address] [place] [id number] Provider, [facility] Social History Tobacco Use Types [...] of this encounter Results * Due to [place] state law, this organization might not be [...]
--- OUTSIDE RECORDS SUMMARY | 2025-11-24 18:26 | XMS_ITS | Encounter Summary ---
Author Organization [facility] Address [address] [place] [address] [place] [address] Phone Care Team Providers Care Screw Machine Hand Name Role Phone Zander Richard MD Primary Care Provider [phone] Encounter Details Date Type Department Care Team (Late st Contact Info) Description 02/28/2018 Ancillary Orders [facility] [address] [place], [place] [address] [place] [address] Abi Mcneil MD [address] [place] [address] Infertility [place] [address] [email or web address] Primary female infertility Social History [...] AM EDT TESTS PERFORMED Pelvic Ultrasound Transvaginal (75520) INDICATIONS/REASONS FOR TESTS Infertility For cryo cycle FINDINGS Uterus Endometrium thickness: 11.3 mm multilayered Few punctate echogenicties at the endometrial-myometrial junction IMPRESSION: Endometrial stripe measured for cryo cycle Procedure Note Yoon Martinez MD - 02/28/2018 TESTS PERFORMED Pelvic Ultrasound Transvaginal (89129) INDICATIONS/REASONS FOR TESTS Infertility For cryo cycle [...] documented as of this encounter Care Teams Screw Machine Hand Relationship Specialty Start Date End Date Zander Richard MD [address] [place] [address] [place] [id number] PCP - General Internal Medicine 10/05/17 documented as of this encounter Additional Source Comments The information contained in this document represents components of the legal health record. It is not the complete legal health record.[facility]
== END 2025-11-24 16:12 | disposition home or self-care (01) ==
LOC: HO.HSMS 14:51
PROVIDERS: PCP Internal Medicine; Visit Provider Nurse Practitioner Family
DX: G47.419 Narcolepsy without cataplexy (principal); R06.83 Snoring; G47.19 Other hypersomnia; G47.9 Sleep disorder, unspecified; G25.81 Restless legs syndrome; G43.709 Chronic migraine without aura, not intractable, without status migrainosus
CPT/HCPCS: 99214

== ENCOUNTER → 2025-11-24 14:50 | Outpatient (BNVA) | payer OTHER, SELFPAY | PROVIDERS: PCP Internal Medicine; Visit Provider Nurse Practitioner Family | DX: G47.19 Other hypersomnia (principal); G47.419 Narcolepsy without cataplexy; G43.709 Chronic migraine without aura, not intractable, without status migrainosus; G25.81 Restless legs syndrome; R06.83 Snoring; Z79.899 Other long term (current) drug therapy | CPT/HCPCS: 99212 ==